=== PATIENT | female | born 1955 | race Caucasian/White ===

== ENCOUNTER 2017-03-04 21:10 | Inpatient (IN) | payer OTHER ==
[2017-03-04] MEDS ORDERED: ASPIRIN 81 MG TABLET, CHEWABLE PO ONE (21:13)
[2017-03-04] MEDS ORDERED: IPRATROPIUM/ALBUTEROL 0.5-2.5 MG/3 ML AMPUL NEB ONE (21:13)
[2017-03-04] MEDS ORDERED: METHYLPREDNISOLONE INJ 125 MG/2 ML SDV IV ONE (21:14)
[2017-03-04] MEDS ORDERED: MAGNESIUM SULFATE/D5W 1 GM/100 ML RTUPB IV ONE (21:14)
--- NOTE | 2017-03-04 22:00 | RADIOLOGY REPORT (SQ) ---
EXAM DESCRIPTION: CHEST SINGLE VIEW COMPLETED DATE/TIME: 03/04/2017 9:43 pm REASON FOR STUDY: sob COMPARISON: None. EXAM PARAMETERS: NUMBER OF VIEWS: One view. TECHNIQUE: Single frontal radiographic view of the chest acquired. RADIATION DOSE: NA LIMITATIONS: None. FINDINGS: LUNGS AND PLEURA: Patchy bilateral airspace disease, edema versus pneumonia. No pleural effusion. No pneumothorax. MEDIASTINUM AND HILAR STRUCTURES: No masses. Contour normal. HEART AND VASCULAR STRUCTURES: Mild cardiomegaly BONES: No acute findings. HARDWARE: None in the chest. OTHER: No other significant finding. IMPRESSION: Patchy diffuse bilateral airspace disease edema versus pneumonia TECHNICAL DOCUMENTATION: JOB ID: [id number] [employer]- All Rights Reserved
[2017-03-04] MEDS ORDERED: VANCOMYCIN HCL INJ 1000 MG VIAL IV ONE (22:24)
[2017-03-04] MEDS ORDERED: CEFEPIME 1 GM/D5W RTU 1 GM/50 ML RTUPB IV ONE (22:24)
[2017-03-04 22:47] LABS: ABSOLUTE LYMPHOCYTES (AUTO) 1.2 10^3/uL (0.5-4.7); ABSOLUTE MONOCYTES (AUTO) 0.2 10^3/uL (0.1-1.4); ABSOLUTE NEUT (AUTO) 4.8 10^3/uL (1.7-8.2); BASOPHILS % (AUTO) 0.5 % (0-2); EOSINOPHILS % (AUTO) 0.5 % (0-6); HEMATOCRIT 42.4 % (36.0-47.0); HEMOGLOBIN 13.6 g/dL (12.0-15.5); HGB HCT DIFFERENCE -1.6; LYMPHOCYTES % (AUTO) 19.7 % (13-45); MEAN CORPUSCULAR HEMOGLOBIN 30.1 pg (27.0-33.4); MEAN CORPUSCULAR VOLUME 94 fl (80-97); MONOCYTES % (AUTO) 3.5 % (3-13); RED BLOOD COUNT 4.52 10^6/uL (3.72-5.28); RED CELL DISTRIBUTION WIDTH 15.8 % (11.5-14.0); SEGMENTED NEUTROPHILS % (AUTO) 75.8 % (42-78); WHITE BLOOD COUNT 6.3 10^3/uL (4.0-10.5)
[2017-03-04 23:06] LABS: ALANINE AMINOTRANSFERASE 28 U/L (9-52); ALBUMIN 2.8 g/dL (3.5-5.0); ALKALINE PHOSPHATASE 69 U/L (38-126); ANION GAP 14 (5-19); ASPARTATE AMINO TRANSFERASE 23 U/L (14-36); BILIRUBIN,DIRECT 0.4 mg/dL (0.0-0.4); BILIRUBIN,TOTAL 0.5 mg/dL (0.2-1.3); BLOOD UREA NITROGEN 21 mg/dL (7-20); CALCIUM 8.6 mg/dL (8.4-10.2); CARBON DIOXIDE 22 mmol/L (22-30); CHLORIDE 106 mmol/L (98-107); CREATINE KINASE 163 U/L (30-135); CREATININE RESULT 1.39 mg/dL (0.52-1.25); GLUCOSE 106 mg/dL (75-110); POTASSIUM 4.6 mmol/L (3.6-5.0); SODIUM 142.2 mmol/L (137-145); TOTAL PROTEIN 5.7 g/dL (6.3-8.2)
[2017-03-04 23:16] LABS: TROPONIN I < 0.012 ng/mL
[2017-03-04] MEDS ORDERED: NORMAL SALINE 1000 ML 1,000 ML IV PRN (23:21)
[2017-03-05] MEDS ORDERED: DIGOXIN INJ 0.5 MG/2 ML AMPULE IV ONE (00:28)
[2017-03-05] MEDS ORDERED: SUCCINYLCHOLINE CHLORIDE INJ 200 MG/10 ML VIAL ONE (00:34)
[2017-03-05] MEDS ORDERED: ETOMIDATE INJ/PF 20 MG/10 ML SDV IV ONE (00:34)
[2017-03-05] MEDS ORDERED: ROCURONIUM BROMIDE INJ 50 MG/5 ML VIAL IV ONE (00:34)
[2017-03-05] MEDS ORDERED: NOREPINEPHRINE BITARTRATE INJ/PF 4 MG/4 ML SDV IV ONE ×2 (00:34→04:51)
[2017-03-05] MEDS ORDERED: PROPOFOL 100 ML IV ONE (00:35)
[2017-03-05 00:36] LABS: ARTERIAL BLOOD BASE EXCESS -6.9 mmol/L
[2017-03-05] MEDS ORDERED: ONDANSETRON HCL INJ/PF 4 MG/2 ML SDV IV PRN (00:42)
[2017-03-05] MEDS ORDERED: HYDROCORTISONE SOD SUCCINATE INJ/PF 100 MG/2 ML SDV IV ONE (00:49)
[2017-03-05] MEDS ORDERED: LEVALBUTEROL HCL NEB 1.25 MG/3 ML AMPUL NEB PRN (00:50)
[2017-03-05] MEDS ORDERED: PROPOFOL 100 ML IV PRN (00:51)
[2017-03-05] MEDS ORDERED: MIDAZOLAM HCL 100 ML IV PRN (00:51)
[2017-03-05] MEDS ORDERED: VECURONIUM BROMIDE INJ 10 MG VIAL IV ONE (00:56)
[2017-03-05] MEDS ORDERED: PHARMACY COMMUNICATION ORDER MC NR ×2 (01:00→02:15)
[2017-03-05 01:47] LABS: THYROID STIMULATING HORMONE 3.01 uIU/mL (0.47-4.68)
--- NOTE | 2017-03-05 01:48 | ER Document Report ---
ED General - General Chief Complaint: Breathing Difficulty Stated Complaint: RESPIRATORY DISTRESS Time Seen by Provider: 03/04/17 21:12 Mode of Arrival: Medic Information source: Patient Notes: This is a 61-year-old female with a history of pneumonia, sepsis, CHF, COPD who is brought into the emergency room by EMS for respiratory distress. Patient was placed on CPAP prior to arrival. TRAVEL OUTSIDE OF THE [place] IN LAST 30 DAYS: No - HPI Onset: Just prior to arrival Onset/Duration: Gradual Quality of pain: No pain Severity: None Pain Level: Denies Associated symptoms: Shortness of breath Exacerbated by: Denies Relieved by: Denies Similar symptoms previously: Yes Recently seen / treated by doctor: Yes - Related Data Allergies/Adverse Reactions: FERNANDO Inhibitors Allergy (Verified 03/04/17 22:14) amoxicillin [From Augmentin] Allergy (Verified 03/04/17 22:14) bumetanide [From Bumex] Allergy (Verified 03/04/17 22:14) clavulanic acid [From Augmentin] Allergy (Verified 03/04/17 22:14) Past Medical History - General Information source: Relative, Emergency Med Personnel - Social History Smoking Status: Unknown if Ever Smoked Cigarette use (# per day): No Chew tobacco use (# tins/day): No Frequency of alcohol use: None Drug Abuse: None Lives with: Spouse/Significant other Family History: None Patient has suicidal ideation: No Patient has homicidal ideation: No - Past Medical History Cardiac Medical History: Reports: Hx Congestive Heart Failure, Hx Hypertension Pulmonary Medical History: Reports: Hx COPD Renal/ Medical History: Denies: Hx Peritoneal Dialysis Review of Systems - Review of Systems Constitutional: denies: Chills, Fever EENT: No symptoms reported Cardiovascular: See HPI Respiratory: See HPI Gastrointestinal: No symptoms reported Genitourinary: No symptoms reported Female Genitourinary: No symptoms reported Musculoskeletal: No symptoms reported Skin: No symptoms reported Hematologic/Lymphatic: No symptoms reported Neurological/Psychological: No symptoms reported Physical Exam - Vital signs Vitals: Resp Pulse Ox 26 H 95 03/04/17 21:12 03/04/17 21:12 Notes: Physical exam: GENERAL: 61-year-old female, alert, answering questions, significant respiratory distress HEAD: Atraumatic, normocephalic. EYES: Pupils equal round and reactive to light, extraocular movements intact, sclera anicteric, conjunctiva are normal. ENT: TMs normal, nares patent, oropharynx clear without exudates. Moist mucous membranes. NECK: Normal range of motion, supple without obvious mass or JVD. LUNGS: Wheezing and crackles bilaterally HEART: Regular rate and rhythm without murmurs, rubs or gallops. ABDOMEN: Soft, normoactive bowel sounds. No tenderness to palpation. No guarding, no rebound. No masses appreciated. EXTREMITIES: Normal range of motion, no pitting or edema. No clubbing or cyanosis. NEUROLOGICAL: Cranial nerves II through XII grossly intact. Normal speech, moving all extremities. PSYCH: Normal mood, normal affect. SKIN: Warm, Dry, normal turgor, no rashes or lesions noted. Course - Re-evaluation Re-evalutation: 03/05/17 01:49 The patient initially did well with nebulizers, IV Solu-Medrol, IV magnesium and BiPAP. She was given cefepime and vancomycin for possible pneumonia. We are cautious with the IV fluids given the possibility of pulmonary edema and a history of CHF. Unfortunately, the patient became unresponsive suggestive of CO2 narcosis. At that point, the decision was made to intubate the patient. A right central line was placed for hypotension. - Vital Signs Vital signs: Temp Pulse Resp BP Pulse Ox 101.4 F H 14 86/66 L 96 03/05/17 02:16 03/05/17 02:16 03/05/17 02:16 03/05/17 03:13 - Laboratory Result Diagrams: 03/04/17 22:10 03/04/17 22:10 Laboratory results interpreted by me: 03/04/17 03/04/17 03/04/17 22:10 22:10 22:10 RDW 15.8 H Carbonic Acid ABG pH ABG pCO2 ABG pO2 ABG O2 Saturation BUN 21 H Creatinine 1.39 H Est GFR ( Amer) 46 L Est GFR (Non-Af Amer) 38 L Lactic Acid 3.9 H Creatine Kinase 163 H NT-Pro-B Natriuret Pep Total Protein 5.7 L Albumin 2.8 L Ur Leukocyte Esterase 03/04/17 03/05/17 03/05/17 22:10 00:19 01:00 RDW Carbonic Acid 1.89 H ABG pH 7.17 L* ABG pCO2 62.7 H ABG pO2 56.7 L ABG O2 Saturation 81.0 L BUN Creatinine Est GFR ( Amer) Est GFR (Non-Af Amer) Lactic Acid Creatine Kinase NT-Pro-B Natriuret Pep 96548 H Total Protein Albumin Ur Leukocyte Esterase MODERATE H 03/05/17 01:30 RDW Carbonic Acid 1.41 H ABG pH 7.27 L ABG pCO2 46.7 H ABG pO2 75.8 L ABG O2 Saturation 93.3 L BUN Creatinine Est GFR ( Amer) Est GFR (Non-Af Amer) Lactic Acid Creatine Kinase NT-Pro-B Natriuret Pep Total Protein Albumin Ur Leukocyte Esterase - Diagnostic Test Radiology reviewed: Image reviewed, Reports reviewed - Chest x-ray shows pulmonary edema or multifocal pneumonia. ET tube is in an acceptable position, central line in acceptable position. - EKG Interpretation by Me Rhythm: A.Fib Procedures - Central Line Right Internal jugular Time completed: 01:53 Consent obtained: Yes - Verbal consent was obtained from Central line pre-insertion: Sterile PPE donned, Chloraprep applied, Sterile drapes applied Central line size (Fr.): 18 Central line lumen type: Triple Anesthetic type: 1% Lidocaine mL's of anesthesia: 3 Ultrasound guided: Yes CM at insertion site: 16 Line secured with sutures: Yes Central line post-insertion: Blood return from lumens, Biopatch applied, Sutured , Sterile dressing applied, Position confirmed w/ CXR Number of attempts: 2 Complications: No Notes: 03/05/17 01:53 Glidewire used. MSBT (maximum sterile barrier technique) followed including cap , mask, sterile gloves, large sterile sheet, hand hygiene, sterile ultrasound probe sleeve, sterile saline for probe visualization, liberal ChloraPrep for cutaneous antisepsis both during procedure set up and immediately before Biopatch application, line stabilization with suture and sterile Tegaderm placement. - Intubation Orotracheal Time of Intubation: 01:52 Airway evaluation: Normal anatomy Mallampati Classification: Class 2 Medications: Etomidate, Other - Rocuronium Intubation method: Orotracheal Blade size: 3 ETT size: 7.0 ETT secured at: Teeth ETT secured at (cm): 21 Breath Sounds after Intubation: Equal End tidal CO2 confirmed: Yes Ventilator settings: SIMV Post Intubation Xray: Yes - Good position Intubation Complications: No complications Critical Care Note - Critical Care Note Total time excluding time spent on procedures (mins): 90 Discharge - Discharge Clinical Impression: Acute respiratory failure Condition: Stable Disposition: ADMITTED INPATIENT Admitting Provider: Hospitalist All es[facility] Unit Admitted: ICU
[2017-03-05 01:49] LABS: ARTERIAL BLOOD BASE EXCESS -6.1 mmol/L; ARTERIAL BLOOD O2 SATURATION 93.3 % (94-98)
--- NOTE | 2017-03-05 02:00 | RADIOLOGY REPORT (SQ) ---
EXAM DESCRIPTION: CHEST SINGLE VIEW COMPLETED DATE/TIME: 03/05/2017 1:47 am REASON FOR STUDY: intubation COMPARISON: Chest x-ray 03/04/2017. EXAM PARAMETERS: NUMBER OF VIEWS: One view TECHNIQUE: Single frontal radiograph of the chest. RADIATION DOSE: N/A LIMITATIONS: None. FINDINGS: TEMPORARY SUPPORT DEVICES:ETT in expected location. NG tube courses below the left jeannette-d iaphragm in to the stomach. Central venous access catheter tip is in expected location. LUNGS AND PLEURA: Persistent bilateral patchy airspace opacities, more confluent in the right upper l obe. No sizable pleural effusion or pneumothorax. MEDIASTINUM AND HILAR STRUCTURES: Stable. HEART AND VASCULAR STRUCTURES: The heart is mildly enlarged. There is mild central vascular congesti on. BONES: Degenerative changes in the spine. IMPRESSION: Persistent patchy bilateral airspace opacities, may represent pulmonary edema and/or pne umonia. Mild cardiomegaly and central vascular congestion. Support devices in expected locations. TECHNICAL DOCUMENTATION: JOB ID: [id number] [employer]- All Rights Reserved
[2017-03-05 02:03] LABS: APPEARANCE,URINE CLOUDY; BILIRUBIN,URINE NEGATIVE (NEGATIVE); GLUCOSE, URINE NEGATIVE (NEGATIVE); KETONES,URINE NEGATIVE (NEGATIVE); LEUKOCYTE ESTERASE,URINE MODERATE (NEGATIVE); NITRITE,URINE NEGATIVE (NEGATIVE); PROTEIN,URINE NEGATIVE (NEGATIVE); URINE SPECIFIC GRAVITY 1.016; UROBILINOGEN,URINE NEGATIVE mg/dL (<2.0)
[2017-03-05] MEDS ORDERED: DEXTROSE 5%-WATER 250 ML with NOREPINEPHRINE BITARTRATE 4 MG IV PRN ×2 (02:06)
[2017-03-05] MEDS ORDERED: NORMAL SALINE 1000 ML 1,000 ML IV PRN (02:10)
[2017-03-05] MEDS ORDERED: VANCOMYCIN HCL 0 MG in DEXTROSE 5%-WATER 250 ML IV NR (02:15)
[2017-03-05] MEDS ORDERED: NORMAL SALINE 1000 ML 1,000 ML IV ONE ×2 (02:36→02:42)
[2017-03-05] MEDS ORDERED: METOPROLOL TARTRATE PF/INJ 5 MG/5 ML SDV IV ONE (02:41)
[2017-03-05] MEDS ORDERED: LORAZEPAM INJ 2 MG/1 ML VIAL IV ONE (02:41)
[2017-03-05] MEDS ORDERED: PHENYLEPHRINE HCL INJ/PF 10 MG/1 ML SDV ONE (03:10)
[2017-03-05] MEDS ORDERED: FENTANYL CITRATE INJ/PF 100 MCG/2 ML AMPUL IV PRN (03:18)
[2017-03-05] MEDS ORDERED: ACETAMINOPHEN 650 MG SUPP.RECT PR ONE ×2 (03:19→03:22)
--- NOTE | 2017-03-05 04:17 | PDOC H&P/TRANSFER SUM ---
General Admission Date/PCP: 03/05/17 02:09 BRIANNA TORRES MD Transfer Date: 03/05/17 Accepting Facility: [facility] Accepting Physician: Dr. Jurado Resuscitation Status: Full Code Chief Complaint: Obtunded - Transfer Diagnosis (1) Septic shock Current Visit: Yes (2) Pneumonia Current Visit: Yes (3) Acute respiratory failure with hypoxia and hypercapnia Current Visit: Yes (4) Atrial fibrillation with RVR Current Visit: Yes (5) COPD exacerbation Current Visit: Yes (6) Chronic prescription opiate use Current Visit: Yes (7) ARF (acute renal failure) Current Visit: Yes (8) High anion gap metabolic acidosis Current Visit: Yes - Transfer Medications Transfer Medications: Current Medications Albuterol/Ipratropium (Duoneb 3 Ml Ampul) 3 ml NEB Q6 GARRY Stop: 04/04/17 05:59 Enoxaparin Sodium (Lovenox Inj 80 Mg/0.8 Ml Disp.Syrin) 70 mg SUBCUT Q12 GARRY Stop: 04/04/17 09:59 Fentanyl Citrate (Sublimaze Inj/Pf 100 Mcg/2 Ml Ampule) 50 mcg IV Q4HP PRN Stop: 03/12/17 03:17 Sodium Chloride (Nacl 0.9% 1000 Ml Iv Soln) 1,000 mls @ 0 mls/hr IV .CONTINUOUS PRN PRN Reason: Wide Open Stop: 04/03/17 23:20 Last Admin: 03/05/17 01:00 Dose: 1,000 ml Midazolam HCl (Versed Rtu 50 Mg/100 Ml Premix Bag) 100 mls @ 0 mls/hr IV CONTINUOUS PRN; Protocol; Titrate PRN Reason: THIS MED IS NOT "PRN" Stop: 03/12/17 00:50 Propofol (Diprivan Rtu 1000 Mg/100 Ml Inf.Bottle) 100 mls @ 0 mls/hr IV CONTINUOUS PRN; Protocol; Titrate PRN Reason: THIS MED IS NOT "PRN" Stop: 04/04/17 00:50 Cefepime HCl (Maxipime Rtu 2 Gm-D5w 50 Ml Premix Bag) 2 gm in 50 mls @ 100 mls/ hr IV Q12 GARRY Stop: 03/12/17 09:59 Vancomycin HCl / Dextrose 250 mls @ 0 mls/hr IV .PHARMACY TO DOSE NR PRN Reason: As Directed Stop: 03/12/17 02:14 Norepinephrine Bitartrate 4 mg (/ Dextrose) 250 mls @ 0 mls/hr IV CONTINUOUS PRN; Protocol; Titrate PRN Reason: THIS MED IS NOT "PRN" Stop: 04/04/17 02:05 Sodium Chloride (Nacl 0.9% 1000 Ml Iv Soln) 1,000 mls @ 150 mls/hr IV CONTINUOUS PRN PRN Reason: THIS MED IS NOT "PRN" Stop: 04/04/17 02:09 Levalbuterol HCl (Xopenex Neb 1.25 Mg/3 Ml Ampul) 1.25 mg NEB Q2HP PRN Stop: 04/04/17 00:49 Methylprednisolone Sodium Succinate (Solu-Medrol Inj/Pf 125 Mg/2 Ml Sdv) 125 mg IV Q6 GARRY Stop: 04/04/17 05:59 Ondansetron HCl (Zofran Inj/Pf 4 Mg/2 Ml Sdv) 4 mg IV Q6HP PRN PRN Reason: nausea/vomiting Stop: 04/04/17 00:41 Pantoprazole Sodium (Protonix Iv Inj 40 Mg Vial) 40 mg IV Q12 GARRY Stop: 03/08/17 09:59 Pharmacy Profile Note (Medication Communication Order) 1 each MC .NOTICE NR Stop: 04/04/17 00:59 Pharmacy Profile Note (Medication Communication Order) 1 each MC .NOTICE NR Stop: 04/04/17 02:14 Sodium Chloride (Saline Flush 2.5 Ml Monoject Prefil Syrin) 2.5 ml IV Q8 GARRY Stop: 04/04/17 05:59 - Allergies Allergies/Adverse Reactions: FERNANDO Inhibitors Allergy (Verified 03/04/17 22:14) amoxicillin [From Augmentin] Allergy (Verified 03/04/17 22:14) bumetanide [From Bumex] Allergy (Verified 03/04/17 22:14) clavulanic acid [From Augmentin] Allergy (Verified 03/04/17 22:14) - Diet/Activity Discharge Diet: Other (Comments) - npo Discharge Activity: Bedrest History of Present Illness Admission Date/PCP: 03/05/17 02:09 BRIANNA TORRES MD History of Present Illness: RADHA GALLO is a 61 year old female with past medical history of COPD, chronic atrial fibrillation, congestive heart failure, fibromyalgia, chronic opiate dependence, and chronic hypotension who presented obtunded to the emergency department. Patient was placed on CPAP prior to presentation. According to her from whom history is obtained, patient was recently discharged from rehab approximately 48 hours ago and subsequently was doing quite well without any complaints prior to taking a nap. He then found her unresponsive and activated EMS. Patient was initially treated with Solu-Medrol , breathing treatments, and antibiotics, and magnesium due to her wheezing, but quickly became unresponsive and obtunded and the decision was made to intubate her. Patient was intubated successfully and central line was placed. Patient was found to be adequately fluid resuscitated, and Levophed was initiated in the emergency department. Patient was found to be in atrial fibrillation with rapid ventricular response and she was transitioned from Levophed to Nash- Synephrine. Patient was given a bolus of digoxin 0.5 mg IV 1. Patient was also given metoprolol IV. Patient was subsequently found to be hyperthermic with a core temperature of 101.5F. Patient was started on empiric cefepime, vancomycin, and cultures were obtained of both her sputum which was barriga in appearance and also her blood. Patient continues to require an excessively high amount of oxygen approximately 80%. And due to the lack of pulmonary and needle setter care here decision was made to transfer patient [facility] again. Dr. Jurado was kind enough to accept this patient in transfer. And we appreciate their help. Past Medical History Cardiac Medical History: Reports: Congestive Heart Failure, Hypertension Pulmonary Medical History: Reports: Chronic Obstructive Pulmonary Disease (COPD) , Intubation, Pneumonia, Sleep Apnea Musculoskeltal Medical History: Reports: Fibromyalgia Past Surgical History Past Surgical History: Reports: Section, Tonsillectomy Social History Lives with: Spouse/Significant other Smoking Status: Former Smoker Frequency of Alcohol Use: None Hx Recreational Drug Use: No Hx Prescription Drug Abuse: No - Advance Directive Resuscitation Status: Full Code Surrogate healthcare decision maker:: Family History Family History: CAD, Hypertension Parental Family History Reviewed: Yes Children Family History Reviewed: Yes Sibling(s) Family History Reviewed.: Yes Review of Systems ROS unobtainable: Due to endotracheal tube Physical Exam Vital Signs: Temp Pulse Resp BP Pulse Ox 101.4 F H 14 86/66 L 96 03/05/17 02:16 03/05/17 02:16 03/05/17 02:16 03/05/17 03:13 General appearance: PRESENT: obese, severe distress Head exam: PRESENT: atraumatic, normocephalic Eye exam: PRESENT: PERRLA. ABSENT: conjunctival injection, conjunctiva pale, scleral icterus Ear exam: PRESENT: normal external ear exam, TM's normal bilaterally Mouth exam: PRESENT: moist Neck exam: PRESENT: thyromegaly, other - Endotracheal tube in place, scar on right neck. ABSENT: JVD, lymphadenopathy, tracheal deviation Respiratory exam: PRESENT: prolonged expiratory phas, rhonchi, symmetrical, unlabored, wheezes. ABSENT: accessory muscle use, rales, tachypnea Cardiovascular exam: PRESENT: irregular rhythm, +S1, +S2, systolic murmur Vascular exam: PRESENT: pallor GI/Abdominal exam: PRESENT: distended, normal bowel sounds, soft. ABSENT: firm , organolmegaly Rectal exam: PRESENT: deferred Extremities exam: PRESENT: clubbing, +1 edema Neurological exam: PRESENT: other - Intubated and sedated Psychiatric exam: PRESENT: other - Intubated and sedated Skin exam: PRESENT: other - Stage I on right medial gluteal fold Results Laboratory Results: 03/04/17 03/04/17 03/04/17 22:10 22:10 22:10 WBC 6.3 Hgb 13.6 Hct 42.4 Plt Count 375 ABG pH ABG pCO2 ABG pO2 ABG O2 Saturation FiO2 Sodium 142.2 Potassium 4.6 Chloride 106 Carbon Dioxide 22 Anion Gap 14 BUN 21 H Creatinine 1.39 H Glucose 106 Lactic Acid Calcium 8.6 Magnesium Total Bilirubin 0.5 Direct Bilirubin 0.4 AST 23 ALT 28 Alkaline Phosphatase 69 Creatine Kinase 163 H CK-MB (CK-2) 1.80 Troponin I < 0.012 NT-Pro-B Natriuret Pep Total Protein 5.7 L Albumin 2.8 L TSH Free T4 Urine pH Ur Specific [place] Ur Leukocyte Esterase Triple Phos Crystals 03/04/17 03/04/17 03/04/17 22:10 22:10 22:10 WBC Hgb Hct Plt Count ABG pH ABG pCO2 ABG pO2 ABG O2 Saturation FiO2 Sodium Potassium Chloride Carbon Dioxide Anion Gap BUN Creatinine Glucose Lactic Acid 3.9 H Calcium Magnesium 2.3 Total Bilirubin Direct Bilirubin AST ALT Alkaline Phosphatase Creatine Kinase CK-MB (CK-2) Troponin I NT-Pro-B Natriuret Pep 79009 H Total Protein Albumin TSH Free T4 Urine pH Ur Specific [place] Ur Leukocyte Esterase Triple Phos Crystals 03/04/17 03/05/17 03/05/17 22:10 00:19 01:00 WBC Hgb Hct Plt Count ABG pH 7.17 L* ABG pCO2 62.7 H ABG pO2 56.7 L ABG O2 Saturation 81.0 L FiO2 60% Sodium Potassium Chloride Carbon Dioxide Anion Gap BUN Creatinine Glucose Lactic Acid Calcium Magnesium Total Bilirubin Direct Bilirubin AST ALT Alkaline Phosphatase Creatine Kinase CK-MB (CK-2) Troponin I NT-Pro-B Natriuret Pep Total Protein Albumin TSH 3.01 Free T4 1.40 Urine pH 7.0 Ur Specific [place] 1.016 Ur Leukocyte Esterase MODERATE H Triple Phos Crystals FEW 03/05/17 03/05/17 03/05/17 01:30 03:30 03:30 WBC Hgb Hct Plt Count ABG pH 7.27 L ABG pCO2 46.7 H ABG pO2 75.8 L ABG O2 Saturation 93.3 L FiO2 90% Sodium Potassium Chloride Carbon Dioxide Anion Gap BUN Creatinine Glucose Lactic Acid 2.0 Calcium Magnesium Total Bilirubin Direct Bilirubin AST ALT Alkaline Phosphatase Creatine Kinase 203 H CK-MB (CK-2) Troponin I NT-Pro-B Natriuret Pep Total Protein Albumin TSH Free T4 Urine pH Ur Specific [place] Ur Leukocyte Esterase Triple Phos Crystals Impressions: Chest X-Ray 03/05/17 01:38 IMPRESSION: Persistent patchy bilateral airspace opacities, may represent pulmonary edema and/or pneumonia. Mild cardiomegaly and central vascular congestion. Support devices in expected locations. Status: Imported from PACS Assessment & Plan - Time Time Spent with patient: Total time spent with patient including patient education, physical examination , discussion with ER physician and transfer, and formulation of plan was 120 minutes of critical care time. Time Spent: Greater than 70 Minutes Critical Time spent with patient: 35 or more minutes Medications reviewed and adjusted accordingly: Yes Anticipated dischagre: [facility] Within: when bed available
[2017-03-05] MEDS ORDERED: IPRATROPIUM/ALBUTEROL 0.5-2.5 MG/3 ML AMPUL NEB SCH (06:00)
[2017-03-05] MEDS ORDERED: METHYLPREDNISOLONE INJ 125 MG/2 ML SDV IV SCH (06:00)
[2017-03-05] MEDS ORDERED: INFLUENZA ADLT QUAD (36MOS+) 2017-18 VAC 0.5 ML SYR IM PRN (06:52)
[2017-03-05 06:56] VITALS: BP 97/74
[2017-03-05] MEDS ORDERED: PANTOPRAZOLE SODIUM 40 MG VIAL IV SCH (10:00)
[2017-03-05] MEDS ORDERED: CEFEPIME 2 GM/D5W RTU 2 GM/50 ML RTUPB IV SCH (10:00)
[2017-03-05] MEDS ORDERED: ENOXAPARIN SODIUM INJ 80 MG/0.8 ML DISP.SYRIN SUBCUT SCH (10:00)
--- NOTE | 2017-03-05 20:58 | EKG REPORT ---
SEVERITY:- ABNORMAL ECG - ATRIAL FIBRILLATION, V-RATE 99-152 BORDERLINE R WAVE PROGRESSION, ANTERIOR LEADS : Confirmed by: Matt Flores MD 05-Mar-2017 08:32:39
[2017-03-05] MEDS ORDERED: RIVAROXABAN 10 MG TABLET PO SCH (22:00)
--- NOTE | 2017-03-06 09:59 | EKG REPORT ---
SEVERITY:- ABNORMAL ECG - SINUS RHYTHM PROBABLE INFERIOR INFARCT, AGE INDETERMINATE : Confirmed by: Matt Flores MD 06-Mar-2017 09:59:23
== END 2017-03-05 06:00 | disposition short-term general hospital (02) | DRG 871 ==
LOC: EDBD → ER 21:10 → EH 03-05 02:09 → ICU 03-05 02:51
PROVIDERS: ADMIT Family Medicine; ATTEND Family Medicine
PROC: 5A1935Z Respiratory Ventilation, Less than 24 Consecutive Hours (ICD-10-PCS; principal; 2017-03-05)
PROC: 0BH17EZ Insertion of Endotracheal Airway into Trachea, Via Natural or Artificial Opening (ICD-10-PCS; 2017-03-05)
PROC: 05HM33Z Insertion of Infusion Device into Right Internal Jugular Vein, Percutaneous Approach (ICD-10-PCS; 2017-03-05)
PROC: B543ZZA Ultrasonography of Right Jugular Veins, Guidance (ICD-10-PCS; 2017-03-05)
DX: A41.9 Sepsis, unspecified organism (principal); R65.21 Severe sepsis with septic shock; J96.01 Acute respiratory failure with hypoxia; N17.9 Acute kidney failure, unspecified; E87.2 Acidosis; F11.20 Opioid dependence, uncomplicated; J44.9 Chronic obstructive pulmonary disease, unspecified; I11.0 Hypertensive heart disease with heart failure; I50.9 Heart failure, unspecified; Z88.0 Allergy status to penicillin; Z88.6 Allergy status to analgesic agent; Z78.1 Physical restraint status; I48.2 Chronic atrial fibrillation; M79.7 Fibromyalgia; Z87.891 Personal history of nicotine dependence; Z82.49 Family history of ischemic heart disease and other diseases of the circulatory system
CPT/HCPCS: 36415; 71010; 80053; 81001; 82550; 82553; 82803; 83605; 83735; 83880; 84439; 84443; 84484; 85025; 87040; 87070; 87077; 87086; 87088; 87186; 87205; 93005; 93010; 94002; 94660; 96361; 96365; 96375; 99291; 99292; C1751; C1769; J0330; J0692; J1160; J1720; J2930; J3370; J3475; J3490; J7030; J7620

== ENCOUNTER 2017-12-28 11:14 | Day surgery (SDC) | payer OTHER ==
[~2017-12-28 11:14] MED LIST: KETOROLAC TROMETHAMINE 0.45% 4 DROP/0.4 ML DROPERETTE OD PRN
[2017-12-28] MEDS ORDERED: TOBRAMYCIN SULFATE/DEXAMETH OPH OINTMENT 3.5 GM ONE (11:32)
[2017-12-28] MEDS ORDERED: LIDOCAINE 1% INJ-PF (10 MG/ML) 30 ML SDV ONE (11:32)
[2017-12-28] MEDS ORDERED: EPINEPHRINE INJ/PF 1 MG/1 ML AMPULE ONE (11:32)
[2017-12-28] MEDS ORDERED: CHONDR SU A NA/HYALUR INTRAOC KIT (SURGICARE) ONE (11:32)
[2017-12-28] MEDS: CYCLOPENTOLATE 0.2%/PHENYLEPHRINE 1% OPH SOLN 2 ML OD PRN ×3 (11:47→12:08)
[2017-12-28] MEDS: TROPICAMIDE 1% OPH SOLN 3 ML OD PRN ×3 (11:47→12:08)
[2017-12-28] MEDS: BESIFLOXACIN HCL 0.6% OPH SUSP 5 ML BOTTLE OD PRN ×3 (11:48→12:34)
[2017-12-28] MEDS: TETRACAINE HCL 0.5% OPH SOLN 0.6 ML DROPERETTE OD PRN ×3 (11:49→12:15)
[2017-12-28] MEDS ORDERED: FENTANYL CITRATE INJ/PF 100 MCG/2 ML AMPUL ONE (12:02)
[2017-12-28] MEDS ORDERED: MIDAZOLAM 2 MG/2 ML INJ ONE ×2 (12:02→12:21)
== END 2017-12-28 13:33 | disposition home or self-care (01) ==
LOC: SC 11:14
PROVIDERS: ATTEND Ophthalmology
DX: H25.11 Age-related nuclear cataract, right eye (principal); M19.90 Unspecified osteoarthritis, unspecified site; J45.909 Unspecified asthma, uncomplicated; I25.10 Atherosclerotic heart disease of native coronary artery without angina pectoris; E78.00 Pure hypercholesterolemia, unspecified; E03.9 Hypothyroidism, unspecified; I48.91 Unspecified atrial fibrillation; M79.7 Fibromyalgia; D64.9 Anemia, unspecified; E66.9 Obesity, unspecified; M10.9 Gout, unspecified; I13.0 Hypertensive heart and chronic kidney disease with heart failure and stage 1 through stage 4 chronic kidney disease, or unspecified chronic kidney disease; I50.30 Unspecified diastolic (congestive) heart failure; E11.22 Type 2 diabetes mellitus with diabetic chronic kidney disease; N18.9 Chronic kidney disease, unspecified; Z79.899 Other long term (current) drug therapy; Z79.01 Long term (current) use of anticoagulants; Z88.1 Allergy status to other antibiotic agents; Z68.41 Body mass index [BMI] 40.0-44.9, adult
CPT/HCPCS: 66984; V2630; J2250; J3490 ×3; J0171; J3010; 142

== ENCOUNTER 2018-01-11 09:37 | Day surgery (SDC) | payer OTHER ==
[~2018-01-11 09:37] MED LIST changes: -KETOROLAC TROMETHAMINE 0.45% 4 DROP/0.4 ML DROPERETTE OD PRN; +KETOROLAC TROMETHAMINE 0.45% 4 DROP/0.4 ML DROPERETTE OS PRN
[2018-01-11] MEDS ORDERED: TOBRAMYCIN SULFATE/DEXAMETH OPH OINTMENT 3.5 GM ONE (09:41)
[2018-01-11] MEDS ORDERED: CHONDR SU A NA/HYALUR INTRAOC KIT (SURGICARE) ONE (09:41)
[2018-01-11] MEDS ORDERED: LIDOCAINE 1% INJ-PF (10 MG/ML) 30 ML SDV ONE (09:41)
[2018-01-11] MEDS ORDERED: EPINEPHRINE INJ/PF 1 MG/1 ML AMPULE ONE (09:41)
[2018-01-11] MEDS: TETRACAINE HCL 0.5% OPH SOLN 0.6 ML DROPERETTE OS PRN ×3 (10:27→10:55)
[2018-01-11] MEDS: BESIFLOXACIN HCL 0.6% OPH SUSP 5 ML BOTTLE OS PRN ×3 (10:27→11:15)
[2018-01-11] MEDS: CYCLOPENTOLATE 0.2%/PHENYLEPHRINE 1% OPH SOLN 2 ML OS PRN ×3 (10:27→10:50)
[2018-01-11] MEDS: TROPICAMIDE 1% OPH SOLN 3 ML OS PRN ×3 (10:27→10:50)
[2018-01-11] MEDS ORDERED: FENTANYL CITRATE INJ/PF 100 MCG/2 ML AMPUL ONE (10:33)
[2018-01-11] MEDS ORDERED: ONDANSETRON HCL INJ/PF 4 MG/2 ML SDV ONE (10:33)
[2018-01-11] MEDS ORDERED: MIDAZOLAM 2 MG/2 ML INJ ONE (10:33)
[2018-01-12] MEDS ORDERED: CYCLOPENTOLATE 0.2%/PHENYLEPHRINE 1% OPH SOLN 2 ML OS PRN (05:00)
[2018-01-12] MEDS ORDERED: BESIFLOXACIN HCL 0.6% OPH SUSP 5 ML BOTTLE OS PRN (05:00)
[2018-01-12] MEDS ORDERED: KETOROLAC TROMETHAMINE 0.45% 4 DROP/0.4 ML DROPERETTE OS PRN (05:00)
[2018-01-12] MEDS ORDERED: BUPIVACAINE HCL 0.75% INJ/PF (7.5 MG/1 ML) 10 ML SDV OS PRN (05:00)
[2018-01-12] MEDS ORDERED: LIDOCAINE 4% INJ/PF (40 MG/ML) 5 ML AMPUL OS PRN (05:00)
[2018-01-12] MEDS ORDERED: TROPICAMIDE 1% OPH SOLN 3 ML OS PRN (05:00)
== END 2018-01-11 12:10 | disposition home or self-care (01) ==
LOC: SC 09:37
PROVIDERS: ATTEND Ophthalmology
DX: H25.12 Age-related nuclear cataract, left eye (principal); Z98.41 Cataract extraction status, right eye; J45.909 Unspecified asthma, uncomplicated; I10 Essential (primary) hypertension; D64.9 Anemia, unspecified; M19.90 Unspecified osteoarthritis, unspecified site; I25.10 Atherosclerotic heart disease of native coronary artery without angina pectoris; M79.7 Fibromyalgia; I48.91 Unspecified atrial fibrillation; E03.9 Hypothyroidism, unspecified; Z96.651 Presence of right artificial knee joint; Z96.641 Presence of right artificial hip joint; Z79.51 Long term (current) use of inhaled steroids; Z79.01 Long term (current) use of anticoagulants; Z79.899 Other long term (current) drug therapy; Z88.8 Allergy status to other drugs, medicaments and biological substances
CPT/HCPCS: 66984; V2630; J2250; J3490 ×3; J0171; J3010; J2405; 142

== ENCOUNTER 2019-08-18 16:50 | Inpatient (IN) | payer BC, OTHER ==
[2019-08-18] MEDS ORDERED: ONDANSETRON HCL INJ/PF 4 MG/2 ML SDV IV ONE (17:32)
[2019-08-18] MEDS ORDERED: MORPHINE SULFATE 10 MG/ML INJ IV ONE (17:34)
--- NOTE | 2019-08-18 17:39 | ER Document Report ---
ED General - General Chief Complaint: Knee Pain Stated Complaint: FALL Time Seen by Provider: 08/18/19 16:56 Primary Care Provider: BRIANNA TORRES MD [Primary Care Provider] - Follow up as needed TRAVEL OUTSIDE OF THE [place] IN LAST 30 DAYS: No - HPI Notes: Chief complaint: Right lower extremity injury HPI: 64-year-old female follow-up with Dr. Torres with history of severe oxygen dependent COPD and previous knee replacement with chronic gait instability sustained a mechanical fall this afternoon while getting up to the bathroom. She try to get herself up off the floor and fell a second time. With the second impact she has experienced severe pain just above the right knee and says she has been unable to bear weight. She denies injury to her head or neck. - Related Data Allergies/Adverse Reactions: FERNANDO Inhibitors Allergy (Verified 03/04/17 22:14) amoxicillin [From Augmentin] Allergy (Verified 03/04/17 22:14) amoxicillin trihydrate [From Augmentin] Allergy (Verified 12/26/16 18:49) Hives bumetanide [From Bumex] Allergy (Verified 03/04/17 22:14) clavulanic acid [From Augmentin] Allergy (Verified 03/04/17 22:14) Potassium Clavulanate * [From Augmentin] Allergy (Verified 12/26/16 18:49) Hives Past Medical History - General Information source: Patient, Emergency Med Personnel, [facility] Records - Social History Smoking Status: Former Smoker Frequency of alcohol use: None Drug Abuse: None Family History: CAD, Hypertension, Other Patient has homicidal ideation: No - Past Medical History Cardiac Medical History: Reports: Hx Atrial Fibrillation, Hx Congestive Heart Failure - Diastolic, Hx Hypercholesterolemia, Hx Hypertension Denies: Hx Heart Attack Pulmonary Medical History: Reports: Hx Asthma, Hx COPD - On chronic steroids, Hx Pneumonia, Hx Intubation, Hx Respiratory Failure - On home oxygen, Hx Sleep Apnea Neurological Medical History: Denies: Hx Cerebrovascular Accident, Hx Seizures Endocrine Medical History: Reports: Hx Hypothyroidism Renal/ Medical History: Denies: Hx Peritoneal Dialysis GI Medical History: Denies: Hx Hepatitis, Hx Hiatal Hernia, Hx Ulcer Musculoskeletal Medical History: Reports Hx Fibromyalgia Skin Medical History: Denies Hx Psoriasis Psychiatric Medical History: Reports: Hx Depression Traumatic Medical History: Denies: Hx Traumatic Brain Injury Infectious Medical History: Denies: Hx Hepatitis Past Surgical History: Reports: Hx Section - X4, Hx Orthopedic Surgery - right knee replacement, right toe, left shoulder, Hx Tonsillectomy. Denies: Hx Mastectomy, Hx Open Heart Surgery, Hx Pacemaker - Immunizations Hx Diphtheria, Pertussis, Tetanus Vaccination: Yes Review of Systems - Review of Systems Notes: Constitutional: Negative for fever. HENT: Negative for sore throat. Eyes: Negative for visual changes. Cardiovascular: Negative for chest pain. Respiratory: Negative for shortness of breath. Gastrointestinal: Negative for abdominal pain, vomiting or diarrhea. Genitourinary: Negative for dysuria. Musculoskeletal: As per HPI Skin: Negative for rash. Neurological: Negative for headaches, weakness or numbness. 10 point ROS negative except as marked above and in HPI. Physical Exam - Vital signs Vitals: Temp Pulse Resp Pulse Ox 98.6 F 95 18 96 08/18/19 16:58 08/18/19 16:58 08/18/19 16:58 08/18/19 16:58 - Notes Notes: GENERAL: Moderately obese elderly female who appears in significant discomfort. Patient is on 2 L of nasal O2. SKIN: Good turgor no rashes. HEAD: Normocephalic atraumatic. EYES: PERRLA. EOMI. Conjunctivae and sclerae clear. EARS: CANALS AND TMS CLEAR. NOSE: CLEAR. MOUTH: Moist mucosa. Good dentition. No stridor or edema. No drooling. NECK: Supple. No masses or thyromegaly. No adenopathy. Carotids 2+ without bruits. No JVD. BACK: Symmetrical without tenderness. CHEST: Respirations unlabored. Breath sounds clear and symmetrical. HEART: Regular rhythm. No murmur gallop or rub. ABDOMEN: Soft nontender without masses, organomegaly or rebound. Bowel sounds normally active. No bruits. GENITALIA: Deferred. EXTREMITIES: Healed anterior surgical scar right knee. Patient is exquisitely tender just above the knee joint and has soft tissue swelling and visible ecchymosis. No edema. No calf tenderness. Cap refill less than 1.5 seconds. Dorsalis pedis and posterior tibial pulses 3+ and symmetrical. NEUROLOGICAL: GCS 15. Alert and oriented x3. Fluent speech. Cranial nerves II through XII intact. Sensorimotor and cerebellar normal. Normal tone. PSYCHIATRIC: Anxious affect. Course - Re-evaluation Re-evalutation: 08/18/19 17:43 X-ray of the right knee has been reviewed by me and demonstrates a comminuted fracture of the distal femur just above the prosthetic right knee joint. Patient will receive IV morphine for pain. I have paged Dr. Moy the on-call orthopedist for consultation in anticipation of admission. 08/18/19 18:01 Dr. Moy has reviewed the patient's x-rays and says that he will see her for consultation for surgical repair of the injury. Patient is to be admitted to the hospitalist service and has been accepted by Dr. Alex. - Vital Signs Vital signs: Temp Pulse Resp BP Pulse Ox 98.6 F 95 18 132/75 H 96 08/18/19 17:15 08/18/19 16:58 08/18/19 16:58 08/18/19 17:33 08/18/19 16:58 Discharge - Discharge Clinical Impression: Closed fracture of right distal femur Qualifiers: Encounter type: initial encounter Fracture morphology: unspecified fracture morphology Qualified Code(s): S72.401A - Unspecified fracture of lower end of right femur, initial encounter for closed fracture Disposition: ADMITTED INPATIENT Admitting Provider: Isai (Hospitalist) Unit Admitted: Medical Floor Referrals: BRIANNA TORRES MD [Primary Care Provider] - Follow up as needed
--- NOTE | 2019-08-18 18:04 | RADIOLOGY REPORT (SQ) ---
EXAM DESCRIPTION: KNEE RIGHT 2 VIEWS IMAGES COMPLETED DATE/TIME: 08/18/2019 4:34 pm REASON FOR STUDY: fall COMPARISON: None. NUMBER OF VIEWS: Four views. TECHNIQUE: AP and cross-table lateral radiographic images acquired of the right knee. LIMITATIONS: None. FINDINGS: MINERALIZATION: Osteopenia. BONES: There is an acute comminuted fracture of the distal femoral metaphysis. Right knee arthroplas ty with fracture line extending through the femoral component. The tibial component remains intact. No tibia or fibular fracture. JOINT: Normal knee joint alignment. Moderate joint effusion. SOFT TISSUES: No soft tissue swelling. No radio-opaque foreign body. OTHER: No other significant finding. IMPRESSION: 1. Right knee arthroplasty with acute comminuted fracture of the distal femur extending through the f emoral component of the arthroplasty. Moderate knee joint effusion. 2. There is moderate osteopenia. TECHNICAL DOCUMENTATION: JOB ID: [id number] 2010 [employer]- All Rights Reserved Reading location - IP/workstation name: [email or web address]
[2019-08-18 18:18] LABS: HEMOGLOBIN 13.9 g/dL (12.0-15.5); MEAN CORPUSCULAR HEMOGLOBIN 28.9 pg (27.0-33.4); MEAN CORPUSCULAR HGB CONC 31.5 g/dL (32.0-36.0); MEAN CORPUSCULAR VOLUME 92 fl (80-97); PLATELET COUNT 167 10^3/uL (150-450); RED CELL DISTRIBUTION WIDTH 16.9 % (11.5-14.0); WHITE BLOOD COUNT 18.1 10^3/uL (4.0-10.5)
[2019-08-18 18:21] LABS: INTERNATIONAL RATION (INR) 1.26; PARTIAL THROMBOPLASTIN TIME 30.1 SEC (23.5-35.8); PROTHROMBIN TIME 15.9 SEC (11.4-15.4)
[2019-08-18] MEDS ORDERED: ONDANSETRON 4 MG TAB.RAPDIS PO PRN (18:26)
[2019-08-18] MEDS ORDERED: IPRATROPIUM/ALBUTEROL 0.5-2.5 MG/3 ML AMPUL NEB PRN (18:26)
--- NOTE | 2019-08-18 18:26 | PDOC H&P ---
History of Present Illness Admission Date/PCP: 08/18/19 18:12 BRIANNA TORRES MD Patient complains of: Fall and left leg pain History of Present Illness: RADHA GALLO is a 64 year old female This patient presents emergency room with complaints of a fall. She denied feeling dizzy. She denied any chest pain. There is no loss of consciousness nausea vomiting. There is no headache. She said she has followed before although denies that it is frequent. She says she has some gait instability. She does have a history of chronic atrial fibrillation. In fact she said she had cardioversion attempted just about 5 days ago advised and but patient is currently back in atrial fibrillation. She is on Eliquis. She said her medication was just changed from Xarelto to Eliquis I believe 5 days ago. She is unsure of the reason why. She says she is scheduled to go back and see the anglesmith for possible ablation Past Medical History Cardiac Medical History: Reports: Atrial Fibrillation, Congestive Heart Failure - Diastolic, Hyperlipidema, Hypertension Denies: Myocardial Infarction Pulmonary Medical History: Reports: Asthma, Chronic Obstructive Pulmonary Disease (COPD) - On chronic steroids, Intubation, Pneumonia, Respiratory Failure - On home oxygen, Sleep Apnea Neurological Medical History: Denies: Seizures Endocrine Medical History: Reports: Hypothyroidism GI Medical History: Denies: Hepatitis, Hiatal Hernia Musculoskeltal Medical History: Reports: Fibromyalgia Skin Medical History: Denies: Psoriasis Psychiatric Medical History: Reports: Depression Traumatic Medical History: Denies: Traumatic Brain Injury Hematology: Reports: Anemia - HX OF ON IRON SUPP Denies: Sickle Cell Disease Past Surgical History Past Surgical History: Reports: Section - X4, Orthopedic Surgery - right knee replacement, right toe, left shoulder, Tonsillectomy Denies: Amputation, Mastectomy, Pacemaker Social History Information Source: Patient Smoking Status: Former Smoker Frequency of Alcohol Use: None Hx Recreational Drug Use: No Drugs: None Hx Prescription Drug Abuse: No - Advance Directive Resuscitation Status: Full Code Family History Family History: None, CAD, Hypertension, Other Parental Family History Reviewed: No Children Family History Reviewed: Yes Sibling(s) Family History Reviewed.: Yes Medication/Allergy Home Medications: Furosemide [Lasix 40 mg Tablet] 40 mg PO BID 05/02/17 Prednisone 2.5 mg PO QPM #30 tablet 05/09/17 Allopurinol [Zyloprim 300 mg Tablet] 300 mg PO DAILY 12/27/17 Cyclobenzaprine HCl [Flexeril 10 mg Tablet] 10 mg PO TIDP PRN 12/27/17 Dofetilide [Tikosyn 500 Mcg Capsule] 250 mcg PO BID 12/27/17 Magnesium Oxide [Mag-Ox 400 mg Tablet] 250 mg PO DAILY 12/27/17 Montelukast Sodium [Singulair 10 mg Tablet] 10 mg PO QHS 12/27/17 Potassium Chloride [Klor-Con 10 Meq Capsule ER] 20 meq PO DAILY 12/27/17 Prednisone 5 mg PO QAM 12/27/17 Pregabalin [Lyrica] 300 mg PO BID 12/27/17 Ropinirole HCl [Requip] 4 mg PO DAILY 12/27/17 Spironolactone 25 mg PO BID 12/27/17 Apixaban [Eliquis 5 mg Tablet] 1 tab PO BID 08/18/19 Diclofenac Epolamine 1 patch TD BID 08/18/19 Fluticasone/Salmeterol [Advair 250-50 Diskus 14 Dose/Diskus] 1 puff IH BID 08/18/19 Lidocaine [Lidoderm 5% (700 mg) Transdermal Patch] 1 patch TP DAILY 08/18/19 Metoprolol Succinate [Toprol Xl] 200 mg PO DAILY 08/18/19 Multivitamin [Multiple Vitamins] 1 tab PO DAILY 08/18/19 Oxycodone HCl/Acetaminophen [Percocet 10-325 mg Tablet] 1 tab PO Q6H PRN 08/18/19 Oxycodone Myristate [Xtampza ER] 13.5 mg PO BID 08/18/19 Topiramate [Qudexy Xr] 50 mg PO DAILY 08/18/19 Ubidecarenone [Coq10] 1 tab PO DAILY 08/18/19 Allergies/Adverse Reactions: FERNANDO Inhibitors Allergy (Verified 03/04/17 22:14) amoxicillin [From Augmentin] Allergy (Verified 03/04/17 22:14) amoxicillin trihydrate [From Augmentin] Allergy (Verified 12/26/16 18:49) Hives bumetanide [From Bumex] Allergy (Verified 03/04/17 22:14) clavulanic acid [From Augmentin] Allergy (Verified 03/04/17 22:14) Potassium Clavulanate * [From Augmentin] Allergy (Verified 12/26/16 18:49) Hives Review of Systems All systems: reviewed and no additional remarkable complaints except as stated Constitutional: ABSENT: headache(s), weakness Eyes: ABSENT: visual disturbances Nose, Mouth, and Throat: ABSENT: sore throat Cardiovascular: ABSENT: edema Gastrointestinal: ABSENT: abdominal pain, hematemesis, hematochezia Genitourinary: ABSENT: dysuria Physical Exam Vital Signs: Temp Pulse Resp BP Pulse Ox 98.6 F 95 18 132/75 H 96 08/18/19 17:15 08/18/19 16:58 08/18/19 16:58 08/18/19 17:33 08/18/19 16:58 Intake & Output 08/17/19 08/18/19 08/19/19 06:59 06:59 06:59 Weight 79.9 kg General appearance: PRESENT: no acute distress, obese Head exam: PRESENT: atraumatic, normocephalic Eye exam: PRESENT: conjunctiva pink, EOMI, PERRLA. ABSENT: scleral icterus Ear exam: PRESENT: normal external ear exam Mouth exam: PRESENT: moist, tongue midline Neck exam: ABSENT: carotid bruit, JVD, lymphadenopathy, thyromegaly Respiratory exam: PRESENT: clear to auscultation martin, unlabored Cardiovascular exam: PRESENT: irregular rhythm, +S1, +S2 Pulses: PRESENT: normal dorsalis pedis pul Vascular exam: PRESENT: normal capillary refill GI/Abdominal exam: PRESENT: normal bowel sounds, soft. ABSENT: distended, guarding, mass, organolmegaly, rebound, tenderness Rectal exam: PRESENT: deferred Extremities exam: PRESENT: other - R thigh pain Musculoskeletal exam: PRESENT: deformity Neurological exam: PRESENT: alert, awake, oriented to person, oriented to place, oriented to time, oriented to situation, CN II-XII grossly intact. ABSENT: motor sensory deficit Psychiatric exam: PRESENT: appropriate affect, normal mood. ABSENT: homicidal ideation, suicidal ideation Skin exam: PRESENT: dry, intact, warm. ABSENT: cyanosis, rash Results Laboratory Results: Results are currently pending Impressions: Knee X-Ray 08/18/19 16:55 IMPRESSION: 1. Right knee arthroplasty with acute comminuted fracture of the distal femur extending through the femoral component of the arthroplasty. Moderate knee joint effusion. 2. There is moderate osteopenia. Assessment and Plan - Diagnosis (1) Atrial fibrillation, chronic Is this a current diagnosis for this admission?: Yes Plan: This is well controlled. Patient's medications have not been verified in the computer and I do not have her laboratory information also (2) Closed fracture of right distal femur Qualifiers: Encounter type: initial encounter Fracture morphology: unspecified fracture morphology Qualified Code(s): S72.401A - Unspecified fracture of lower end of right femur, initial encounter for closed fracture Is this a current diagnosis for this admission?: Yes Plan: Patient is to be evaluated by surgery for surgical plans as indicated by orthopedics. As she is anticoagulant this should be held. She does have chronic atrial fibrillation and there is no need for full strength anticoagulation at this time (3) COPD (chronic obstructive pulmonary disease) Is this a current diagnosis for this admission?: Yes Plan: This appears to be stable. (4) ARCHANA (obstructive sleep apnea) Is this a current diagnosis for this admission?: Yes - Plan Summary Summary: Anticoagulation will be held - Time Time Spent with patient: 25-34 minutes Anticipated discharge: Home
[2019-08-18 18:35] LABS: ALBUMIN 4.1 g/dL (3.5-5.0); ALKALINE PHOSPHATASE 100 U/L (38-126); ASPARTATE AMINO TRANSFERASE 27 U/L (14-36); BILIRUBIN,TOTAL 0.6 mg/dL (0.2-1.3); BLOOD UREA NITROGEN 28 mg/dL (7-20); CALCIUM 9.2 mg/dL (8.4-10.2); CHLORIDE 92 mmol/L (98-107); GLUCOSE 165 mg/dL (75-110); POTASSIUM 3.7 mmol/L (3.6-5.0); TOTAL PROTEIN 6.6 g/dL (6.3-8.2)
[2019-08-18 18:38] LABS: ABSOLUTE LYMPHOCYTES# (MANUAL) 0.9 10^3/uL (0.5-4.7); ABSOLUTE MONOCYTES # (MANUAL) 1.1 10^3/uL (0.1-1.4); BASOPHILS % (MANUAL) 0 % (0-2); EOSINOPHILS % (MANUAL) 0 % (0-6); LYMPHOCYTES % (MANUAL) 5 % (13-45); MONOCYTES % (MANUAL) 6 % (3-13); SEGMENTED NEUTROPHILS % (MAN) 89 % (42-78); TOTAL CELLS COUNTED 100
[2019-08-18 18:39] LABS: ANISOCYTOSIS 1+; PLATELET COMMENT ADEQUATE; PLATELET LARGE PRESENT
[2019-08-18 18:43] LABS: ANION GAP 6 (5-19); CARBON DIOXIDE 39 mmol/L (22-30)
--- NOTE | 2019-08-18 19:39 | RADIOLOGY REPORT (SQ) ---
EXAM DESCRIPTION: CHEST SINGLE VIEW IMAGES COMPLETED DATE/TIME: 08/18/2019 5:20 pm REASON FOR STUDY: preop COMPARISON: CT chest 08/09/2017. Chest radiograph 05/18/2017 EXAM PARAMETERS: NUMBER OF VIEWS: One view. TECHNIQUE: Single frontal radiographic view of the chest acquired. RADIATION DOSE: NA LIMITATIONS: None. FINDINGS: LUNGS AND PLEURA: There is ill-defined patchy area consolidation in the retrocardiac left lower lobe region. Probable small left effusion. Lungs are hyperinflated. Biapical pleural scarrin g is stable. No focal consolidation in the right lung. No pneumothorax. MEDIASTINUM AND HILAR STRUCTURES: No masses. Contour normal. HEART AND VASCULAR STRUCTURES: Heart normal in size. Normal vasculature. BONES: No acute findings. HARDWARE: None in the chest. OTHER: No other significant finding. IMPRESSION: Patchy retrocardiac opacity in the left lower lobe suspicious for infectious/ inflammato ry process. CT of the chest may provide additional information. TECHNICAL DOCUMENTATION: JOB ID: [id number] 2010 [employer]- All Rights Reserved Reading location - IP/workstation name: [id number]
[2019-08-18 20:35] LABS: APPEARANCE,URINE CLEAR; BILIRUBIN,URINE NEGATIVE (NEGATIVE); COLOR,URINE YELLOW; GLUCOSE, URINE NEGATIVE (NEGATIVE); KETONES,URINE NEGATIVE (NEGATIVE); PROTEIN,URINE NEGATIVE (NEGATIVE); URINE SPECIFIC GRAVITY 1.011; UROBILINOGEN,URINE NEGATIVE mg/dL (<2.0)
[2019-08-18] MEDS: OXYCODONE-ACETAMINOPHEN 5-325 MG TABLET PO PRN (22:03)
[2019-08-19] MEDS: OXYCODONE-ACETAMINOPHEN 5-325 MG TABLET PO PRN (04:13)
[2019-08-19] MEDS ORDERED: (PENDING PHARMACY ID) (Prednisone [Prednisone] 5 MG) PO SCH (08:00)
[2019-08-19] MEDS: ACETAMINOPHEN 325 MG TABLET PO PRN ×2 (08:50→22:27)
[2019-08-19] MEDS: NORMAL SALINE 1000 ML 1,000 ML IV PRN (08:51)
[2019-08-19] MEDS ORDERED: MIDAZOLAM 2 MG/2 ML INJ ONE (09:52)
[2019-08-19] MEDS ORDERED: HYDROMORPHONE HCL INJ/PF 2 MG/ML AMPULE ONE (09:52)
[2019-08-19] MEDS ORDERED: PROPOFOL INJ 200 MG/20 ML VIAL IV ONE (09:52)
[2019-08-19] MEDS ORDERED: FENTANYL CITRATE INJ/PF 100 MCG/2 ML AMPUL ONE (09:52)
[2019-08-19] MEDS ORDERED: PHENYLEPHRINE HCL INJ/PF 10 MG/1 ML SDV ONE (10:00)
[2019-08-19] MEDS ORDERED: DOFETILIDE 500 MCG CAPSULE PO SCH (10:00)
[2019-08-19] MEDS ORDERED: LIDOCAINE 2% INJ-PF (20 MG/ML) 2 ML AMPUL ONE (10:00)
[2019-08-19] MEDS ORDERED: ROCURONIUM BROMIDE INJ 50 MG/5 ML VIAL IV ONE (10:00)
[2019-08-19] MEDS ORDERED: ONDANSETRON HCL INJ/PF 4 MG/2 ML SDV ONE (10:00)
--- NOTE | 2019-08-19 10:06 | PDOC CONSULTATION ---
Consultation Consult Date: 08/19/19 Attending physician:: LUIS MIGUEL CABRERA Provider Consulted: EREN HOOD Consult reason:: Right distal femur periprosthetic fracture History of Present Illness Admission Date/PCP: 08/18/19 18:12 BRIANNA TORRES MD Patient complains of: Right distal femur fracture History of Present Illness: RADAH GALLO is a 64 year old female with a history of atrial fibrillation, COPD, and gait instability. She sustained a fall yesterday at home resulting in a displaced right distal femur periprosthetic fracture. Upon presentation she denied loss of consciousness, chest pain, or lightheadedness. Past Medical History Cardiac Medical History: Reports: Atrial Fibrillation, Congestive Heart Failure - Diastolic, Hyperlipidema, Hypertension Denies: Myocardial Infarction Pulmonary Medical History: Reports: Asthma, Chronic Obstructive Pulmonary Disease (COPD) - On chronic steroids, Intubation, Pneumonia, Respiratory Failure - On home oxygen, Sleep Apnea Neurological Medical History: Denies: Seizures Endocrine Medical History: Reports: Hypothyroidism GI Medical History: Denies: Hepatitis, Hiatal Hernia Musculoskeltal Medical History: Reports: Fibromyalgia Skin Medical History: Denies: Psoriasis Psychiatric Medical History: Reports: Depression Traumatic Medical History: Denies: Traumatic Brain Injury Hematology: Reports: Anemia - HX OF ON IRON SUPP Denies: Sickle Cell Disease Past Surgical History Past Surgical History: Reports: Section - X4, Orthopedic Surgery - right knee replacement, right toe, left shoulder, Tonsillectomy Denies: Amputation, Mastectomy, Pacemaker Social History Smoking Status: Never Smoker Electronic Cigarette use?: No Frequency of Alcohol Use: None Hx Recreational Drug Use: No Drugs: None Hx Prescription Drug Abuse: No - Advance Directive Resuscitation Status: Full Code Family History Family History: None, CAD, Hypertension, Other Parental Family History Reviewed: Yes Children Family History Reviewed: Yes Sibling(s) Family History Reviewed.: Yes Medication/Allergy Home Medications: Furosemide [Lasix 40 mg Tablet] 40 mg PO BID 05/02/17 Prednisone 2.5 mg PO QPM #30 tablet 05/09/17 Allopurinol [Zyloprim 300 mg Tablet] 300 mg PO DAILY 12/27/17 Cyclobenzaprine HCl [Flexeril 10 mg Tablet] 10 mg PO TIDP PRN 12/27/17 Dofetilide [Tikosyn 500 Mcg Capsule] 250 mcg PO BID 12/27/17 Magnesium Oxide [Mag-Ox 400 mg Tablet] 250 mg PO DAILY 12/27/17 Montelukast Sodium [Singulair 10 mg Tablet] 10 mg PO QHS 12/27/17 Potassium Chloride [Klor-Con 10 Meq Capsule ER] 20 meq PO DAILY 12/27/17 Prednisone 5 mg PO QAM 12/27/17 Pregabalin [Lyrica] 300 mg PO BID 12/27/17 Ropinirole HCl [Requip] 4 mg PO DAILY 12/27/17 Spironolactone 25 mg PO BID 12/27/17 Apixaban [Eliquis 5 mg Tablet] 1 tab PO BID 08/18/19 Diclofenac Epolamine 1 patch TD BID 08/18/19 Fluticasone/Salmeterol [Advair 250-50 Diskus 14 Dose/Diskus] 1 puff IH BID 08/18/19 Lidocaine [Lidoderm 5% (700 mg) Transdermal Patch] 1 patch TP DAILY 08/18/19 Metoprolol Succinate [Toprol Xl] 200 mg PO DAILY 08/18/19 Multivitamin [Multiple Vitamins] 1 tab PO DAILY 08/18/19 Oxycodone HCl/Acetaminophen [Percocet 10-325 mg Tablet] 1 tab PO Q6H PRN 08/18/19 Oxycodone Myristate [Xtampza ER] 13.5 mg PO BID 08/18/19 Topiramate [Qudexy Xr] 50 mg PO DAILY 08/18/19 Ubidecarenone [Coq10] 1 tab PO DAILY 08/18/19 Allergies/Adverse Reactions: FERNANDO Inhibitors Allergy (Verified 03/04/17 22:14) amoxicillin [From Augmentin] Allergy (Verified 03/04/17 22:14) amoxicillin trihydrate [From Augmentin] Allergy (Verified 12/26/16 18:49) Hives bumetanide [From Bumex] Allergy (Verified 03/04/17 22:14) clavulanic acid [From Augmentin] Allergy (Verified 03/04/17 22:14) Potassium Clavulanate * [From Augmentin] Allergy (Verified 12/26/16 18:49) Hives Review of Systems All systems: reviewed and no additional remarkable complaints except as stated - As per HPI Physical Exam Vital Signs: Temp Pulse Resp BP Pulse Ox 98.2 F 92 18 107/69 98 08/19/19 08:00 08/19/19 09:29 08/19/19 09:29 08/19/19 08:00 08/19/19 09:29 Intake & Output 08/18/19 08/19/19 08/20/19 06:59 06:59 06:59 Intake Total 200 Output Total 400 Balance -200 Weight 78.6 kg General appearance: PRESENT: no acute distress, morbidly obese Head exam: PRESENT: atraumatic, normocephalic Neck exam: PRESENT: full ROM Respiratory exam: PRESENT: accessory muscle use, decreased breath sounds, prolonged expiratory phas Cardiovascular exam: PRESENT: irregular rhythm Pulses: PRESENT: +2 pedal pulses bilateral GI/Abdominal exam: PRESENT: normal bowel sounds, soft. ABSENT: distended, guarding, mass, organolmegaly, rebound, tenderness Rectal exam: PRESENT: deferred Musculoskeletal exam: PRESENT: other - Displaced right distal periprosthetic fracture. Patient is able to DF and PF the foot. Sensation is intact. 2+ DP and PT pulses. Psychiatric exam: PRESENT: depressed Results Laboratory Results: 08/18/19 18:00 08/18/19 18:00 08/18/19 08/18/19 08/18/19 18:00 18:00 19:05 WBC 18.1 H RBC 4.80 Hgb 13.9 Hct 44.0 MCV 92 MCH 28.9 MCHC 31.5 L RDW 16.9 H Plt Count 167 Seg Neutrophils % Not Reportable Sodium 136.8 L Potassium 3.7 Chloride 92 L Carbon Dioxide 39 H Anion Gap 6 BUN 28 H Creatinine 1.14 Est GFR ( Amer) 58 L Glucose 165 H Calcium 9.2 Total Bilirubin 0.6 AST 27 Alkaline Phosphatase 100 Total Protein 6.6 Albumin 4.1 Urine Color YELLOW Urine Appearance CLEAR Urine pH 7.0 Ur Specific [place] 1.011 Urine Protein NEGATIVE Urine Glucose (UA) NEGATIVE Urine Ketones NEGATIVE Urine Blood NEGATIVE Urine RBC (Auto) 1 Impressions: Knee X-Ray 08/18/19 16:55 IMPRESSION: 1. Right knee arthroplasty with acute comminuted fracture of the distal femur extending through the femoral component of the arthroplasty. Moderate knee joint effusion. 2. There is moderate osteopenia. Chest X-Ray 08/18/19 17:42 IMPRESSION: Patchy retrocardiac opacity in the left lower lobe suspicious for infectious/ inflammatory process. CT of the chest may provide additional information. Assessment & Plan - Diagnosis (1) Atrial fibrillation, chronic Is this a current diagnosis for this admission?: Yes (2) Closed fracture of right distal femur Qualifiers: Encounter type: initial encounter Fracture morphology: unspecified fracture morphology Qualified Code(s): S72.401A - Unspecified fracture of lower end of right femur, initial encounter for closed fracture Is this a current diagnosis for this admission?: Yes - Time Time Spent: 30 to 50 Minutes Anticipated discharge: SNF - Plan Summary Plan Summary: The patient has sustained a displaced periprosthetic fracture of the right distal femur. Radiographically implants appear stable. I have recommended open reduction with internal fixation. Risks, benefits, and alternatives were discussed with the patient. Risks include the risk of with anesthesia, the risk of infection, the risk of injury to nerves and vessels, the risk of nonunion and malunion, and the possible need for additional surgical procedures. The possible need for blood transfusion was also discussed. An opportunity for questions was provided. All questions were answered to the patient's satisfaction. The patient expressed understanding and wishes to proceed with surgery.
[2019-08-19 10:09] LABS: ABSOLUTE BASOPHILS # (AUTO) 0.1 10^3/uL (0.0-0.2); ABSOLUTE EOSINOPHILS # (AUTO) 0.1 10^3/uL (0.0-0.6); ABSOLUTE LYMPHOCYTES (AUTO) 1.9 10^3/uL (0.5-4.7); ABSOLUTE MONOCYTES (AUTO) 1.1 10^3/uL (0.1-1.4); ABSOLUTE NEUT (AUTO) 8.5 10^3/uL (1.7-8.2); BASOPHILS % (AUTO) 0.6 % (0-2); EOSINOPHILS % (AUTO) 1.2 % (0-6); HEMOGLOBIN 12.2 g/dL (12.0-15.5); LYMPHOCYTES % (AUTO) 16.1 % (13-45); MEAN CORPUSCULAR HEMOGLOBIN 29.2 pg (27.0-33.4); MEAN CORPUSCULAR HGB CONC 32.2 g/dL (32.0-36.0); MEAN CORPUSCULAR VOLUME 91 fl (80-97); MONOCYTES % (AUTO) 9.1 % (3-13); PLATELET COUNT 148 10^3/uL (150-450); RED BLOOD COUNT 4.19 10^6/uL (3.72-5.28); RED CELL DISTRIBUTION WIDTH 16.7 % (11.5-14.0); TOTAL CELLS COUNTED % (AUTO) 100 %; WHITE BLOOD COUNT 11.6 10^3/uL (4.0-10.5)
[2019-08-19] MEDS ORDERED: BUPIVACAINE HCL 0.5%-EPI 1:200000 INJ/PF 30 ML VIAL ONE (10:18)
[2019-08-19 10:26] LABS: ANION GAP 5 (5-19); BLOOD UREA NITROGEN 21 mg/dL (7-20); CALCIUM 8.3 mg/dL (8.4-10.2); CARBON DIOXIDE 36 mmol/L (22-30); CHLORIDE 96 mmol/L (98-107); GLUCOSE 88 mg/dL (75-110); POTASSIUM 3.3 mmol/L (3.6-5.0)
[2019-08-19] MEDS ORDERED: VANCOMYCIN HCL INJ 500 MG VIAL ONE (10:30)
[2019-08-19] MEDS: FLUTICASONE/VILANTEROL 200-25 MCG/DOSE IH SCH (10:46)
[2019-08-19] MEDS: PREGABALIN 100 MG CAPSULE PO SCH ×2 (10:47→18:16)
[2019-08-19] MEDS: DOCUSATE SODIUM 100 MG CAPSULE PO SCH (10:47)
--- NOTE | 2019-08-19 10:51 | EKG REPORT ---
SEVERITY:- ABNORMAL ECG - ATRIAL FIBRILLATION INFERIOR INFARCT, AGE INDETERMINATE NONSPECIFIC T ABNORMALITIES, ANT-LAT LEADS : Confirmed by: Anjel Baeza 19-Aug-2019 10:50:39
[2019-08-19] MEDS ORDERED: FENTANYL CITRATE INJ/PF 100 MCG/2 ML AMPUL IV PRN ×3 (11:49)
[2019-08-19] MEDS ORDERED: DIPHENHYDRAMINE HCL 50 MG/ML VIAL IV PRN (11:49)
[2019-08-19] MEDS ORDERED: MEPERIDINE HCL/PF INJ 25 MG/1 ML DISP.SYRIN IV PRN (11:49)
[2019-08-19] MEDS ORDERED: ONDANSETRON HCL INJ/PF 4 MG/2 ML SDV IV PRN (11:49)
[2019-08-19] MEDS ORDERED: PROMETHAZINE HCL INJ 25 MG/1 ML VIAL IV PRN ×2 (11:49)
--- NOTE | 2019-08-19 13:39 | Operative Report ---
Operative Report DATE OF SURGERY: 08/19/19 PREOPERATIVE DIAGNOSIS: Right distal femur displaced intercondylar periprosthet ic fracture POSTOPERATIVE DIAGNOSIS: Same OPERATION: Open reduction with internal fixation right distal femur intercondylar periprosthetic fracture. Implants: [place] right distal femur plate 8 hole SURGEON: EREN HOOD ANESTHESIA: GA COMPLICATIONS: None ESTIMATED BLOOD LOSS: 100 cc INTRAOPERATIVE FINDINGS: Same PROCEDURE: Indications for procedure: The patient is a 64-year-old woman with atrial fibrillation, COPD, and deconditioning disorder. She sustained a fall at home yesterday resulting in a displaced intercondylar periprosthetic fracture surrounding a right total knee arthroplasty. Description of procedure following the induction of a general anesthetic and the administration of 1 g of vancomycin, the patient was positioned supine on the operating room table. All bony prominences were padded. The right lower extremity was sterilely prepped with ChloraPrep and draped in standard fashion. A tourniquet was not used due to the length of the leg. A standard lateral uti lity incision was employed. Sharp incision was performed through skin with Bovie electrocautery through the subcutaneous tissue and adipose tissue. The iliotibial band was split and retracted. The vastus lateralis was taken off of bone with electrocautery taking care to coagulate perforating vessels. Fracture was visualized. There was significant comminution in the metaphyseal region. Reduction was performed and multiple clamps were placed across the small fracture fragments. 2 lag screws were placed from lateral to medial maintaining reduction of the fragments. These leg screws pulled out of the distal fragment but were still able to maintain the relative alignment of the fracture fragments. [place] distal femoral plate was positioned on the lateral aspect of the femur. Its position was secured distally with a Mikie wire. The plates was then clamped to the femur with several small clamps dialing in the reduction. A cancellus screw was placed distally compressing the plate to the femur. Multiple locking screws were then placed into the distal fragment. This was followed by 4 bicortically placed locking screws in the shaft. Lastly a cancellus screw was placed into the distal fragment from proximal to distal. The knee was taken through a full range of motion. Alignment and motion were normal. The fracture construct was stable. Image intensification was brought in which demonstrated anatomic reduction of the fracture and correct placement of implants. Copious irrigation was then performed. The iliotibial band was closed [id number] with 0 Vicryl suture. The subcutaneous tissue was closed with 2-0 Vicryl suture. Skin was reapproximated with 3-0 nylon suture. 25 cc of 0.5% Marcaine with epinephrine was injected for postoperative analgesia. A bulky sterile dressing and knee immobilizer were then applied. The patient tolerated the procedure well without complications was brought recovery in stable condition.
--- NOTE | 2019-08-19 14:38 | PDOC PROGRESS REPORT ---
Subjective Progress Note for:: 08/19/19 Reason For Visit: RIGHT FEMORAL FRACTURE, ATRIAL FIBRILLATION, CHRON Physical Exam Vital Signs: Temp Pulse Resp BP Pulse Ox 98.1 F 126 H 12 110/78 97 08/19/19 13:35 08/19/19 14:20 08/19/19 14:20 08/19/19 14:20 08/19/19 14:20 Intake & Output 08/18/19 08/19/19 08/20/19 06:59 06:59 06:59 Intake Total 200 1750 Output Total 400 1450 Balance -200 300 Weight 78.6 kg General appearance: PRESENT: no acute distress, well-developed, well-nourished Head exam: PRESENT: atraumatic, normocephalic Eye exam: PRESENT: conjunctiva pink, EOMI, PERRLA. ABSENT: scleral icterus Ear exam: PRESENT: normal external ear exam Mouth exam: PRESENT: moist, tongue midline Neck exam: ABSENT: carotid bruit, JVD, lymphadenopathy, thyromegaly Respiratory exam: PRESENT: clear to auscultation martin. ABSENT: rales, rhonchi, wheezes Cardiovascular exam: PRESENT: RRR. ABSENT: diastolic murmur, rubs, systolic murmur Pulses: PRESENT: normal dorsalis pedis pul Vascular exam: PRESENT: normal capillary refill GI/Abdominal exam: PRESENT: normal bowel sounds, soft. ABSENT: distended, guarding, mass, organolmegaly, rebound, tenderness Rectal exam: PRESENT: deferred Extremities exam: PRESENT: other - R LE Immobilizer. ABSENT: calf tenderness, pedal edema Neurological exam: PRESENT: alert, awake, oriented to person, oriented to place, oriented to time, oriented to situation, CN II-XII grossly intact. ABSENT: motor sensory deficit Psychiatric exam: PRESENT: appropriate affect, normal mood. ABSENT: homicidal ideation, suicidal ideation Skin exam: PRESENT: dry, intact, warm. ABSENT: cyanosis, rash Results Laboratory Results: 08/19/19 09:23 08/19/19 09:23 08/18/19 08/18/19 08/18/19 18:00 18:00 19:05 WBC 18.1 H RBC 4.80 Hgb 13.9 Hct 44.0 MCV 92 MCH 28.9 MCHC 31.5 L RDW 16.9 H Plt Count 167 Seg Neutrophils % Not Reportable Sodium 136.8 L Potassium 3.7 Chloride 92 L Carbon Dioxide 39 H Anion Gap 6 BUN 28 H Creatinine 1.14 Est GFR ( Amer) 58 L Glucose 165 H Calcium 9.2 Total Bilirubin 0.6 AST 27 Alkaline Phosphatase 100 Total Protein 6.6 Albumin 4.1 Urine Color YELLOW Urine Appearance CLEAR Urine pH 7.0 Ur Specific [place] 1.011 Urine Protein NEGATIVE Urine Glucose (UA) NEGATIVE Urine Ketones NEGATIVE Urine Blood NEGATIVE Urine RBC (Auto) 1 08/19/19 08/19/19 09:23 09:23 WBC 11.6 H RBC 4.19 Hgb 12.2 Hct 38.0 MCV 91 MCH 29.2 MCHC 32.2 RDW 16.7 H Plt Count 148 L Seg Neutrophils % 73.0 Sodium 137.4 Potassium 3.3 L Chloride 96 L Carbon Dioxide 36 H Anion Gap 5 BUN 21 H Creatinine 0.76 Est GFR ( Amer) > 60 Glucose 88 Calcium 8.3 L Total Bilirubin AST Alkaline Phosphatase Total Protein Albumin Urine Color Urine Appearance Urine pH Ur Specific [place] Urine Protein Urine Glucose (UA) Urine Ketones Urine Blood Urine RBC (Auto) Impressions: Knee X-Ray 08/18/19 16:55 IMPRESSION: 1. Right knee arthroplasty with acute comminuted fracture of the distal femur extending through the femoral component of the arthroplasty. Moderate knee joint effusion. 2. There is moderate osteopenia. Chest X-Ray 08/18/19 17:42 IMPRESSION: Patchy retrocardiac opacity in the left lower lobe suspicious for infectious/ inflammatory process. CT of the chest may provide additional information. Assessment and Plan - Diagnosis (1) Atrial fibrillation, chronic Is this a current diagnosis for this admission?: Yes Plan: Restart anticoagulant once okay by orthopedics. Patient says she just had reversion within the last 1 week and she states she is scheduled to have an ablation. She remained in atrial fibrillation (2) Closed fracture of right distal femur Qualifiers: Encounter type: initial encounter Fracture morphology: unspecified fracture morphology Qualified Code(s): S72.401A - Unspecified fracture of lower end of right femur, initial encounter for closed fracture Is this a current diagnosis for this admission?: Yes Plan: Patient is status post open reduction with internal fixation of the right distal femur periprosthetic fracture. (3) COPD (chronic obstructive pulmonary disease) Is this a current diagnosis for this admission?: Yes Plan: stable. (4) ARCHANA (obstructive sleep apnea) Is this a current diagnosis for this admission?: Yes (5) SIRS (systemic inflammatory response syndrome) Is this a current diagnosis for this admission?: Yes Plan: Likely related to acute event. Her white count is already down from 18,000. We will continue to monitor - Plan Summary Summary: Anticoagulation will be held
[2019-08-19] MEDS ORDERED: POTASSIUM CHLORIDE 10 MEQ TABLET.ER PO ONE ×3 (15:00→23:00)
--- NOTE | 2019-08-19 16:26 | RADIOLOGY REPORT (SQ) ---
EXAM DESCRIPTION: FEMUR RIGHT; NO CHG FLUORO IMAGES COMPLETED DATE/TIME: 08/19/2019 1:00 pm REASON FOR STUDY: DISTAL FEMUR ORIF COMPARISON: Right knee two views 08/18/2019 FLUOROSCOPY TIME: 0.1 minutes 5 digital C-arm images saved to PACS. TECHNIQUE: Intra-operative images acquired during surgical procedure to evaluate progress. NUMBER OF IMAGES: 5 digital C-arm images LIMITATIONS: None. FINDINGS: Post ORIF distal right femur fracture with lateral distal femoral fixation plate and multi ple screws. Pre-existing total knee replacement in good alignment. Please see the operative report for further details IMPRESSION: IMAGE(S) OBTAINED DURING PROCEDURE. COMMENT: Quality ID 145: Final reports for procedures using fluoroscopy that document radiation exp osure indices, or exposure time and number of fluorographic images (if radiation exposure indices are not available) Please consult full operative report of the attending physician for description of the procedure. TECHNICAL DOCUMENTATION: JOB ID: [id number] 2010 [employer]- All Rights Reserved Reading location - IP/workstation name: [email or web address]
--- NOTE | 2019-08-19 16:26 | RADIOLOGY REPORT (SQ) ---
EXAM DESCRIPTION: FEMUR RIGHT; NO CHG FLUORO IMAGES COMPLETED DATE/TIME: 08/19/2019 1:00 pm REASON FOR STUDY: DISTAL FEMUR ORIF COMPARISON: Right knee two views 08/18/2019 FLUOROSCOPY TIME: 0.1 minutes 5 digital C-arm images saved to PACS. TECHNIQUE: Intra-operative images acquired during surgical procedure to evaluate progress. NUMBER OF IMAGES: 5 digital C-arm images LIMITATIONS: None. FINDINGS: Post ORIF distal right femur fracture with lateral distal femoral fixation plate and multi ple screws. Pre-existing total knee replacement in good alignment. Please see the operative report for further details IMPRESSION: IMAGE(S) OBTAINED DURING PROCEDURE. COMMENT: Quality ID 145: Final reports for procedures using fluoroscopy that document radiation exp osure indices, or exposure time and number of fluorographic images (if radiation exposure indices are not available) Please consult full operative report of the attending physician for description of the procedure. TECHNICAL DOCUMENTATION: JOB ID: [id number] 2010 [employer]- All Rights Reserved Reading location - IP/workstation name: [email or web address]
--- NOTE | 2019-08-19 16:32 | Progress Note ---
Provider Note Provider Note: I was called by the nursing staff to see patient after she was found to be hypotensive with her systolic blood pressure in the 60s. She had return to the room from the PACU at about 3:15 PM and I was called within 1 hour of this happening. Repeat blood pressure continue to show a systolic in the 70s to 80s. Monitor blood pressure was also checked. Patient was actually awake and alert although she did indicate that she felt somewhat woozy during this episodes. She was given isotonic saline and after about 500mL she did perk up and systolic blood pressure increased to about 102. Patient unfortunately appears to have a congestion with a cough at this time but will continue to give her some fluids. 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 This lady is in atrial fibrillation with a heart rate of about 110. She did have cardioversion done just within the last week. She apparently lost about 400 mL of blood during the surgery according to reports. Labs are currently pending including CBC, BMP, troponin and BNP. She denies any chest pain. As she is symptomatically improved and blood pressures improved we will continue to watch now follow-up on her lab work and chest x-ray for further intervention. Nursing staff informed the surgeon about patient's condition Temp Pulse Resp BP Pulse Ox 98.6 F 108 H 16 100/56 L 100 08/19/19 14:35 08/19/19 15:23 08/19/19 15:23 08/19/19 14:35 08/19/19 15:23 Intake & Output 08/18/19 08/19/19 08/20/19 06:59 06:59 06:59 Intake Total 200 1900 Output Total 400 1450 Balance -200 450 Weight 78.6 kg Labs- Last Values WBC 11.9 10^3/uL (4.0-10.5) H 08/19/19 16:45 RBC 3.06 10^6/uL (3.72-5.28) L 08/19/19 16:45 Hgb 8.9 g/dL (12.0-15.5) L D 08/19/19 16:45 Hct 28.2 % (36.0-47.0) L 08/19/19 16:45 MCV 92 fl (80-97) 08/19/19 16:45 MCH 29.1 pg (27.0-33.4) 08/19/19 16:45 MCHC 31.6 g/dL (32.0-36.0) L 08/19/19 16:45 RDW 16.7 % (11.5-14.0) H 08/19/19 16:45 Plt Count 142 10^3/uL (150-450) L 08/19/19 16:45 Lymph % (Auto) 17.0 % (13-45) 08/19/19 16:45 [place] % (Auto) 8.6 % (3-13) 08/19/19 16:45 Eos % (Auto) 1.1 % (0-6) 08/19/19 16:45 Baso % (Auto) 0.6 % (0-2) 08/19/19 16:45 Absolute Neuts (auto) 8.6 10^3/uL (1.7-8.2) H 08/19/19 16:45 Absolute Lymphs (auto) 2.0 10^3/uL (0.5-4.7) 08/19/19 16:45 Absolute Monos (auto) 1.0 10^3/uL (0.1-1.4) 08/19/19 16:45 Absolute Eos (auto) 0.1 10^3/uL (0.0-0.6) 08/19/19 16:45 Absolute Basos (auto) 0.1 10^3/uL (0.0-0.2) 08/19/19 16:45 Total Counted 100 08/18/19 18:00 Seg Neutrophils % 72.7 % (42-78) 08/19/19 16:45 Seg Neuts % (Manual) 89 % (42-78) H 08/18/19 18:00 Lymphocytes % (Manual) 5 % (13-45) L 08/18/19 18:00 Monocytes % (Manual) 6 % (3-13) 08/18/19 18:00 Eosinophils % (Manual) 0 % (0-6) 08/18/19 18:00 Basophils % (Manual) 0 % (0-2) 08/18/19 18:00 Abs Neuts (Manual) 16.1 10^3/uL (1.7-8.2) H 08/18/19 18:00 Abs Lymphs (Manual) 0.9 10^3/uL (0.5-4.7) 08/18/19 18:00 Abs Monocytes (Manual) 1.1 10^3/uL (0.1-1.4) 08/18/19 18:00 Absolute Eos (Manual) 0.0 10^3/uL (0.0-0.6) 08/18/19 18:00 Abs Basophils (Manual) 0.0 10^3/uL (0.0-0.2) 08/18/19 18:00 Large Platelets PRESENT 08/18/19 18:00 Platelet Comment ADEQUATE 08/18/19 18:00 Anisocytosis 1+ 08/18/19 18:00 PT 15.9 SEC (11.4-15.4) H 08/18/19 18:00 INR 1.26 08/18/19 18:00 APTT 30.1 SEC (23.5-35.8) 08/18/19 18:00 Sodium 135.0 mmol/L (137-145) L 08/19/19 16:45 Potassium 3.3 mmol/L (3.6-5.0) L 08/19/19 16:45 Chloride 102 mmol/L (98-107) 08/19/19 16:45 Carbon Dioxide 29 mmol/L (22-30) 08/19/19 16:45 Anion Gap 4 (5-19) L 08/19/19 16:45 BUN 23 mg/dL (7-20) H 08/19/19 16:45 Creatinine 1.13 mg/dL (0.52-1.25) 08/19/19 16:45 Est GFR ( Amer) 58 (>60) L 08/19/19 16:45 Est GFR (MDRD) Non-Af 48 (>60) L 08/19/19 16:45 Glucose 216 mg/dL (75-110) H 08/19/19 16:45 Calcium 7.2 mg/dL (8.4-10.2) L 08/19/19 16:45 Total Bilirubin 0.6 mg/dL (0.2-1.3) 08/18/19 18:00 Direct Bilirubin 0.0 mg/dL (0.0-0.4) 08/18/19 18:00 Neonat Total Bilirubin Not Reportable 08/18/19 18:00 Neonat Direct Bilirubin Not Reportable 08/18/19 18:00 Neonat Indirect Bili Not Reportable 08/18/19 18:00 AST 27 U/L (14-36) 08/18/19 18:00 ALT 23 U/L (<35) 08/18/19 18:00 Alkaline Phosphatase 100 U/L (38-126) 08/18/19 18:00 Troponin I 0.047 ng/mL 08/19/19 16:45 NT-Pro-B Natriuret Pep 1390 pg/mL (<125) H 08/19/19 16:45 Total Protein 6.6 g/dL (6.3-8.2) 08/18/19 18:00 Albumin 4.1 g/dL (3.5-5.0) 08/18/19 18:00 Urine Color YELLOW 08/18/19 19:05 Urine Appearance CLEAR 08/18/19 19:05 Urine pH 7.0 (5.0-9.0) 08/18/19 19:05 Ur Specific [place] 1.011 08/18/19 19:05 Urine Protein NEGATIVE mg/dL (NEGATIVE) 08/18/19 19:05 Urine Glucose (UA) NEGATIVE mg/dL (NEGATIVE) 08/18/19 19:05 Urine Ketones NEGATIVE mg/dL (NEGATIVE) 08/18/19 19:05 Urine Blood NEGATIVE (NEGATIVE) 08/18/19 19:05 Urine Nitrite (Reflex) NEGATIVE (NEGATIVE) 08/18/19 19:05 Urine Bilirubin NEGATIVE (NEGATIVE) 08/18/19 19:05 Urine Urobilinogen NEGATIVE mg/dL (<2.0) 08/18/19 19:05 Leukocyte Esterase Rfl NEGATIVE (NEGATIVE) 08/18/19 19:05 Urine RBC (Auto) 1 /HPF 08/18/19 19:05 Urine WBC (Reflex) 1 /HPF 08/18/19 19:05 Squamous Epi Cells Auto 1 /HPF 08/18/19 19:05 Urine Ascorbic Acid NEGATIVE (NEGATIVE) 08/18/19 19:05 SARS-CoV-2 (PCR) NEGATIVE (NEGATIVE) 08/18/19 22:00 Chest x-ray shows increasing small to moderate left pleural effusion with compre ssive atelectasis or consolidation at the left lung base. Patient ordered for vancomycin postop. She does continue to be hypokalemic and her kidney function is relatively flat. White count is mostly unchanged at 11.9 however her hemoglobin did drop to 8.9 and this is consistent with a history that she did lose blood Intra-Op. Hemoglobin was 12.2 this morning preop We will continue to monitor patient.
[2019-08-19 17:00] LABS: ABSOLUTE BASOPHILS # (AUTO) 0.1 10^3/uL (0.0-0.2); ABSOLUTE EOSINOPHILS # (AUTO) 0.1 10^3/uL (0.0-0.6); ABSOLUTE NEUT (AUTO) 8.6 10^3/uL (1.7-8.2); BASOPHILS % (AUTO) 0.6 % (0-2); EOSINOPHILS % (AUTO) 1.1 % (0-6); HEMATOCRIT 28.2 % (36.0-47.0); MEAN CORPUSCULAR HEMOGLOBIN 29.1 pg (27.0-33.4); MEAN CORPUSCULAR HGB CONC 31.6 g/dL (32.0-36.0); MEAN CORPUSCULAR VOLUME 92 fl (80-97); MONOCYTES % (AUTO) 8.6 % (3-13); PLATELET COUNT 142 10^3/uL (150-450); RED BLOOD COUNT 3.06 10^6/uL (3.72-5.28); RED CELL DISTRIBUTION WIDTH 16.7 % (11.5-14.0); SEGMENTED NEUTROPHILS % (AUTO) 72.7 % (42-78); TOTAL CELLS COUNTED % (AUTO) 100 %; WHITE BLOOD COUNT 11.9 10^3/uL (4.0-10.5)
[2019-08-19 17:01] LABS: HEMOGLOBIN 8.9 g/dL (12.0-15.5)
[2019-08-19 17:16] LABS: BLOOD UREA NITROGEN 23 mg/dL (7-20); CHLORIDE 102 mmol/L (98-107); GLUCOSE 216 mg/dL (75-110); POTASSIUM 3.3 mmol/L (3.6-5.0)
[2019-08-19 17:22] LABS: CARBON DIOXIDE 29 mmol/L (22-30)
--- NOTE | 2019-08-19 17:31 | RADIOLOGY REPORT (SQ) ---
EXAM DESCRIPTION: CHEST SINGLE VIEW IMAGES COMPLETED DATE/TIME: 08/19/2019 3:33 pm REASON FOR STUDY: post op congestion. COMPARISON: 08/18/2019. CT chest, 06/09/2017 EXAM PARAMETERS: NUMBER OF VIEWS: One view TECHNIQUE: Single frontal radiographic view of the chest acquired. RADIATION DOSE: NA LIMITATIONS: None. FINDINGS: LUNGS AND PLEURA: Increasing small to moderate left pleural effusion with compressive atel ectasis/ consolidation at the left lung base. Right lung remains clear. No right effusion. No pneu mothorax. MEDIASTINUM AND HILAR STRUCTURES: No masses. Contour normal. HEART AND VASCULAR STRUCTURES: Moderate cardiomegaly. No pulmonary vascular congestion. BONES: Osteoarthritis and postsurgical changes at the left shoulder, unchanged. HARDWARE: None in the chest. OTHER: No other significant finding. IMPRESSION: Increasing small to moderate left pleural effusion with compressive atelectasis/ consoli dation at the left lung base. TECHNICAL DOCUMENTATION: JOB ID: [id number] 2010 [employer]- All Rights Reserved Reading location - IP/workstation name: [email or web address]
[2019-08-19 17:41] LABS: ANION GAP 4 (5-19); CALCIUM 7.2 mg/dL (8.4-10.2)
[2019-08-19 17:43] LABS: TROPONIN I 0.047 ng/mL
[2019-08-19] MEDS: PREDNISONE 5 MG TABLET PO SCH (18:14)
[2019-08-19] MEDS: DOFETILIDE 125 MCG CAPSULE PO SCH (18:15)
[2019-08-19] MEDS ORDERED: NORMAL SALINE 250 ML IV PRN ×2 (19:44→19:45)
[2019-08-19] MEDS ORDERED: RINGERS SOLUTION,LACTATED 1,000 ML IV PRN (19:44)
[2019-08-19] MEDS ORDERED: ACETAMINOPHEN 325 MG TABLET PO PRN (19:45)
[2019-08-19] MEDS ORDERED: DIPHENHYDRAMINE HCL 25 MG CAPSULE PO PRN (19:45)
--- NOTE | 2019-08-19 19:53 | Progress Note ---
Provider Note Provider Note: Critical care note: 08/19/2019 Critical care start time: 1910 Critical care issue: Hypotension I responded to a rapid response for this patient due to hypotension with a systolic blood pressure of 58. Patient was noted to be very pale but awake, alert and appropriate. Examination revealed her skin to have very poor turgor and severe dryness of her oral mucosa. Conjunctiva were pale as were her oral labia. Chest showed a few scattered rhonchi but was otherwise clear. Heart showed a irregularly irregular rate and rhythm with a mild tachycardia 100-120. Operative site was essentially clean and dry with no obvious hematoma of the proximal femur or pelvic soft tissues. After discussion with patient concerning her hypertension and probable nature/etiology due to vascular volume depletion and operative blood loss we determined that she would be willing to accept a transfusion of 2 units of packed red blood cells and a bolus of normal saline followed by increased IV fluids utilizing lactated Ringer's. The patient was observed on an ongoing basis while she received her fluid bolus and her blood pr essure gradually improved to a systolic pressure of 100 with her heart rate decreased to 100-110. A basic metabolic profile, CBC without differential, type crossmatch and give 2 units packed red blood cells and routine transfusion care orders were placed. Critical care end time: 1948 Total critical care time: 38 minutes
[2019-08-19 19:56] LABS: ABSOLUTE BASOPHILS # (AUTO) 0.1 10^3/uL (0.0-0.2); ABSOLUTE EOSINOPHILS # (AUTO) 0.2 10^3/uL (0.0-0.6); ABSOLUTE LYMPHOCYTES (AUTO) 1.4 10^3/uL (0.5-4.7); ABSOLUTE MONOCYTES (AUTO) 1.2 10^3/uL (0.1-1.4); ABSOLUTE NEUT (AUTO) 11.1 10^3/uL (1.7-8.2); BASOPHILS % (AUTO) 0.7 % (0-2); EOSINOPHILS % (AUTO) 1.5 % (0-6); HEMATOCRIT 27.2 % (36.0-47.0); HEMOGLOBIN 8.5 g/dL (12.0-15.5); LYMPHOCYTES % (AUTO) 9.8 % (13-45); MEAN CORPUSCULAR HEMOGLOBIN 29.1 pg (27.0-33.4); MEAN CORPUSCULAR HGB CONC 31.3 g/dL (32.0-36.0); MEAN CORPUSCULAR VOLUME 93 fl (80-97); MONOCYTES % (AUTO) 8.7 % (3-13); PLATELET COUNT 132 10^3/uL (150-450); RED BLOOD COUNT 2.92 10^6/uL (3.72-5.28); RED CELL DISTRIBUTION WIDTH 16.9 % (11.5-14.0); SEGMENTED NEUTROPHILS % (AUTO) 79.3 % (42-78); TOTAL CELLS COUNTED % (AUTO) 100 %
[2019-08-19 20:17] LABS: BLOOD UREA NITROGEN 23 mg/dL (7-20); GLUCOSE 152 mg/dL (75-110); POTASSIUM 3.3 mmol/L (3.6-5.0)
[2019-08-19 20:23] LABS: CARBON DIOXIDE 26 mmol/L (22-30); CHLORIDE 103 mmol/L (98-107)
[2019-08-19 20:30] LABS: ANION GAP 5 (5-19)
[2019-08-19] MEDS ORDERED: NORMAL SALINE 1000 ML 1,000 ML IV ONE (20:30)
[2019-08-19 20:33] LABS: CALCIUM 6.8 mg/dL (8.4-10.2)
--- NOTE | 2019-08-19 22:19 | EKG REPORT ---
SEVERITY:- ABNORMAL ECG - ATRIAL FIBRILLATION, V-RATE 84-139 BORDERLINE INFERIOR Q WAVES NONSPECIFIC REPOL ABNORMALITY, DIFFUSE LEADS : Confirmed by: Anjel Baeza 19-Aug-2019 22:17:59
[2019-08-19] MEDS: VANCOMYCIN HCL 1,000 MG in DEXTROSE 5%-WATER 250 ML IV SCH (22:28)
[2019-08-20] MEDS: OXYCODONE-ACETAMINOPHEN 5-325 MG TABLET PO PRN ×3 (01:12→14:25)
[2019-08-20] MEDS: KETOROLAC TROMETHAMINE INJ/PF 30 MG/1 ML SDV IV PRN ×3 (05:21→20:37)
[2019-08-20 07:42] LABS: ABSOLUTE BASOPHILS # (AUTO) 0.1 10^3/uL (0.0-0.2); ABSOLUTE EOSINOPHILS # (AUTO) 0.3 10^3/uL (0.0-0.6); ABSOLUTE LYMPHOCYTES (AUTO) 1.3 10^3/uL (0.5-4.7); ABSOLUTE MONOCYTES (AUTO) 1.2 10^3/uL (0.1-1.4); BASOPHILS % (AUTO) 0.4 % (0-2); EOSINOPHILS % (AUTO) 2.1 % (0-6); HEMATOCRIT 28.8 % (36.0-47.0); HEMOGLOBIN 9.7 g/dL (12.0-15.5); LYMPHOCYTES % (AUTO) 8.6 % (13-45); MEAN CORPUSCULAR HEMOGLOBIN 29.7 pg (27.0-33.4); MEAN CORPUSCULAR HGB CONC 33.6 g/dL (32.0-36.0); MONOCYTES % (AUTO) 8.2 % (3-13); PLATELET COUNT 104 10^3/uL (150-450); RED BLOOD COUNT 3.27 10^6/uL (3.72-5.28); RED CELL DISTRIBUTION WIDTH 16.5 % (11.5-14.0); SEGMENTED NEUTROPHILS % (AUTO) 80.7 % (42-78); TOTAL CELLS COUNTED % (AUTO) 100 %; WHITE BLOOD COUNT 14.9 10^3/uL (4.0-10.5)
[2019-08-20 07:45] LABS: BLOOD UREA NITROGEN 15 mg/dL (7-20); CALCIUM 7.2 mg/dL (8.4-10.2); GLUCOSE 114 mg/dL (75-110); POTASSIUM 3.6 mmol/L (3.6-5.0)
[2019-08-20 07:50] LABS: CARBON DIOXIDE 29 mmol/L (22-30); CHLORIDE 104 mmol/L (98-107); MEAN CORPUSCULAR VOLUME 88 fl (80-97)
[2019-08-20 07:51] LABS: ANION GAP 1 (5-19)
[2019-08-20] MEDS ORDERED: METOPROLOL SUCCINATE 50 MG TAB.SR.24H PO ONE (08:45)
[2019-08-20] MEDS: DOFETILIDE 125 MCG CAPSULE PO SCH ×2 (09:45→17:36)
[2019-08-20] MEDS: FLUTICASONE/VILANTEROL 200-25 MCG/DOSE IH SCH (09:45)
[2019-08-20] MEDS: PREGABALIN 100 MG CAPSULE PO SCH ×2 (09:46→17:35)
[2019-08-20] MEDS: DOCUSATE SODIUM 100 MG CAPSULE PO SCH (09:46)
[2019-08-20] MEDS: VANCOMYCIN HCL 1,000 MG in DEXTROSE 5%-WATER 250 ML IV SCH ×2 (09:47→21:03)
--- NOTE | 2019-08-20 11:07 | CDI QUERY ---
CDI Query CDI Review: Dear Provider: To better reflect your patients severity of illness, morbidity, and resource utilization Please specify and document in the Progress Notes and Discharge Summary if you are monitoring / treating / evaluating any of the following conditions: Query Clinical indicators Acute blood loss anemia Post-op blood loss anemia Unable to determine Other PREOPERATIVE DIAGNOSIS: Right distal femur displaced intercondylar periprosthetic fracture OPERATION: Open reduction with internal fixation right distal femur intercondylar periprosthetic fracture. Implants: [place] right distal femur plate 8 hole Per Provider Note: I was called by the nursing staff to see patient after she was found to be hypotensive with her systolic blood pressure in the 60s. She had return to the room from the PACU at about 3:15 PM and I was called within 1 hour of this happening She apparently lost about 400 mL of blood during the surgery according to reports. H/H on admission 13.9 /44 post-op 8.5/27.2 Transfused 2 units PRBC The terms probable, suspected, likely, possible or still to be ruled out may be used if you are unable to determine the exact nature of a condition. Thank you for your consideration, Clinical Documentation Physician Advisors EAN Espinosa RN, BSN RN [email or web address] Office [phone] Office [phone]
--- NOTE | 2019-08-20 12:34 | PDOC PROGRESS REPORT ---
Subjective Progress Note for:: 08/20/19 Subjective:: Patient feels better today. Events last night noted. She apparently became more hypotensive and repeat H&H revealed hemoglobin to still be low at 8.5. Have been 12.2 early on in the day. The consensus is that she was hypotensive from hemorrhagic shock from acute blood loss anemia intraoperatively. There is no clear evidence of any overt bleeding. Reason For Visit: RIGHT FEMORAL FRACTURE, ATRIAL FIBRILLATION, CHRON Physical Exam Vital Signs: Temp Pulse Resp BP Pulse Ox 98.4 F 114 H 16 112/69 100 08/20/19 08:00 08/20/19 08:36 08/20/19 08:36 08/20/19 08:00 08/20/19 08:36 Intake & Output 08/19/19 08/20/19 08/21/19 06:59 06:59 06:59 Intake Total 200 4160 500 Output Total 400 1450 Balance -200 2710 500 Weight 78.6 kg 78 kg General appearance: PRESENT: no acute distress Head exam: PRESENT: atraumatic, normocephalic Eye exam: PRESENT: conjunctiva pink, EOMI. ABSENT: scleral icterus Ear exam: PRESENT: normal external ear exam Mouth exam: PRESENT: moist, tongue midline Neck exam: ABSENT: carotid bruit, JVD, lymphadenopathy, thyromegaly Respiratory exam: PRESENT: clear to auscultation martin. ABSENT: rales, rhonchi, wheezes Cardiovascular exam: PRESENT: irregular rhythm, +S1, +S2. ABSENT: diastolic murmur, rubs, systolic murmur GI/Abdominal exam: PRESENT: normal bowel sounds, soft. ABSENT: distended, guarding, mass, organolmegaly, rebound, tenderness Rectal exam: PRESENT: deferred Extremities exam: PRESENT: other - Right lower extremity with knee immobilizer. No Gross hematoma noted. ABSENT: calf tenderness, clubbing, pedal edema Neurological exam: PRESENT: alert, awake, oriented to person, oriented to place, oriented to time, oriented to situation, CN II-XII grossly intact. ABSENT: motor sensory deficit Psychiatric exam: PRESENT: appropriate affect, normal mood. ABSENT: homicidal ideation, suicidal ideation Skin exam: PRESENT: dry, intact, warm. ABSENT: cyanosis, rash Results Laboratory Results: 08/20/19 07:15 08/20/19 07:15 08/19/19 08/19/19 08/19/19 16:45 16:45 19:42 WBC 11.9 H 14.0 H RBC 3.06 L 2.92 L Hgb 8.9 L D 8.5 L Hct 28.2 L 27.2 L MCV 92 93 MCH 29.1 29.1 MCHC 31.6 L 31.3 L RDW 16.7 H 16.9 H Plt Count 142 L 132 L Seg Neutrophils % 72.7 79.3 H Sodium 135.0 L Potassium 3.3 L Chloride 102 Carbon Dioxide 29 Anion Gap 4 L BUN 23 H Creatinine 1.13 Est GFR ( Amer) 58 L Glucose 216 H Calcium 7.2 L Blood Type Antibody Screen 08/19/19 08/19/19 08/20/19 19:42 19:42 07:15 WBC 14.9 H RBC 3.27 L Hgb 9.7 L Hct 28.8 L MCV 88 D MCH 29.7 MCHC 33.6 RDW 16.5 H Plt Count 104 L Seg Neutrophils % 80.7 H Sodium 133.8 L Potassium 3.3 L Chloride 103 Carbon Dioxide 26 Anion Gap 5 BUN 23 H Creatinine 1.09 Est GFR ( Amer) > 60 Glucose 152 H Calcium 6.8 L* Blood Type A POSITIVE Antibody Screen NEGATIVE 08/20/19 07:15 WBC RBC Hgb Hct MCV MCH MCHC RDW Plt Count Seg Neutrophils % Sodium 134.3 L Potassium 3.6 Chloride 104 Carbon Dioxide 29 Anion Gap 1 L BUN 15 Creatinine 0.78 Est GFR ( Amer) > 60 Glucose 114 H Calcium 7.2 L Blood Type Antibody Screen 08/19/19 08/20/19 08/20/19 16:45 00:49 07:15 Troponin I 0.047 0.039 0.040 NT-Pro-B Natriuret Pep 1390 H Impressions: Knee X-Ray 08/18/19 16:55 IMPRESSION: 1. Right knee arthroplasty with acute comminuted fracture of the distal femur extending through the femoral component of the arthroplasty. Moderate knee joint effusion. 2. There is moderate osteopenia. Chest X-Ray 08/19/19 00:00 IMPRESSION: Increasing small to moderate left pleural effusion with compressive atelectasis/ consolidation at the left lung base. Femur X-Ray 08/19/19 00:00 IMPRESSION: IMAGE(S) OBTAINED DURING PROCEDURE. Fluoroscopy 08/19/19 00:00 IMPRESSION: IMAGE(S) OBTAINED DURING PROCEDURE. Assessment and Plan - Diagnosis (1) Atrial fibrillation, chronic Is this a current diagnosis for this admission?: Yes Plan: She is currently in atrial fibrillation poorly controlled. Likely exacerbated with her acute blood loss anemia. Will restart on metoprolol at a reduced dose as she is still borderline hypotensive (2) Closed fracture of right distal femur Qualifiers: Encounter type: initial encounter Fracture morphology: unspecified fracture morphology Qualified Code(s): S72.401A - Unspecified fracture of lower end of right femur, initial encounter for closed fracture Is this a current diagnosis for this admission?: Yes Plan: She is status post ORIF postop day 1. For the management as per orthopedics (3) COPD (chronic obstructive pulmonary disease) Is this a current diagnosis for this admission?: Yes (4) ARCHANA (obstructive sleep apnea) Is this a current diagnosis for this admission?: Yes (5) Anemia Qualifiers: Anemia type: other cause Other causes of anemia: acute posthemorrhagic Qualified Code(s): D62 - Acute posthemorrhagic anemia Is this a current diagnosis for this admission?: Yes Plan: Patient likely sustained hemodynamic compromise from her acute blood loss anemia. She was transfused 2 units of packed red blood cells. Hemoglobin is still around 9. She is much improved clinically today although still somewhat tentative. We will continue to monitor her closely. We will follow-up on H&H and transfuse as needed - Plan Summary Summary: Continue to hold anticoagulation We will give a dose of Lasix as she did receive quite a bit of fluid both intraoperatively and postop when she was hypotensive. According to her ejection fraction is about 45% Chest x-ray shows increasing small to moderate left pleural effusion with compressive atelectasis or consolidation at the left lung base. Will place on empiric antibiotic and suggest this should be followed and escalated or discontinued if not indicated. Her slightly elevated troponin which has been flat, with a downward trend is likely secondary to her acute posthemorrhagic anemia as well as atrial fibrillation and a stress of surgery. Patient already has a parachute folder at [facility] and she should follow-up once she is discharged - Time Time Spent with patient: 25-34 minutes Medications reviewed and adjusted accordingly: Yes Anticipated discharge: Home
[2019-08-20] MEDS ORDERED: FUROSEMIDE INJ/PF 20 MG/2 ML SDV IV ONE (13:00)
[2019-08-20] MEDS: CEFTRIAXONE 1 GM/D5W RTU 1 GM/50 ML RTUPB IV SCH (13:01)
[2019-08-20] MEDS: PREDNISONE 5 MG TABLET PO SCH (17:35)
--- NOTE | 2019-08-20 17:47 | PDOC PROGRESS REPORT ---
Subjective Progress Note for:: 08/20/19 Subjective:: Patient has moderate pain in the right leg following ORIF distal femur fracture. Patient received 2U PRBC last evening for symptomatic acute blood loss anemia. She is clinically improved today. Reason For Visit: RIGHT FEMORAL FRACTURE, ATRIAL FIBRILLATION, CHRON Physical Exam Vital Signs: Temp Pulse Resp BP Pulse Ox 98.5 F 73 16 81/52 L 100 08/20/19 12:35 08/20/19 12:35 08/20/19 12:35 08/20/19 12:35 08/20/19 12:35 Intake & Output 08/19/19 08/20/19 08/21/19 06:59 06:59 06:59 Intake Total 200 4160 550 Output Total 400 1450 Balance -200 2710 550 Weight 78.6 kg 78 kg General appearance: PRESENT: no acute distress Head exam: PRESENT: atraumatic, normocephalic Pulses: PRESENT: +2 pedal pulses bilateral Musculoskeletal exam: PRESENT: other - The surgical dressing is C/D/I. There is no evidence of persistent bleeding. Sensation and motor function are normal. Results Laboratory Results: 08/20/19 07:15 08/20/19 07:15 08/19/19 08/19/19 08/19/19 16:45 19:42 19:42 WBC 14.0 H RBC 2.92 L Hgb 8.5 L Hct 27.2 L MCV 93 MCH 29.1 MCHC 31.3 L RDW 16.9 H Plt Count 132 L Seg Neutrophils % 79.3 H Sodium 135.0 L 133.8 L Potassium 3.3 L 3.3 L Chloride 102 103 Carbon Dioxide 29 26 Anion Gap 4 L 5 BUN 23 H 23 H Creatinine 1.13 1.09 Est GFR ( Amer) 58 L > 60 Glucose 216 H 152 H Calcium 7.2 L 6.8 L* Blood Type Antibody Screen 08/19/19 08/20/19 08/20/19 19:42 07:15 07:15 WBC 14.9 H RBC 3.27 L Hgb 9.7 L Hct 28.8 L MCV 88 D MCH 29.7 MCHC 33.6 RDW 16.5 H Plt Count 104 L Seg Neutrophils % 80.7 H Sodium 134.3 L Potassium 3.6 Chloride 104 Carbon Dioxide 29 Anion Gap 1 L BUN 15 Creatinine 0.78 Est GFR ( Amer) > 60 Glucose 114 H Calcium 7.2 L Blood Type A POSITIVE Antibody Screen NEGATIVE 08/19/19 08/20/19 08/20/19 16:45 00:49 07:15 Troponin I 0.047 0.039 0.040 NT-Pro-B Natriuret Pep 1390 H Impressions: Knee X-Ray 08/18/19 16:55 IMPRESSION: 1. Right knee arthroplasty with acute comminuted fracture of the distal femur extending through the femoral component of the arthroplasty. Moderate knee joint effusion. 2. There is moderate osteopenia. Chest X-Ray 08/19/19 00:00 IMPRESSION: Increasing small to moderate left pleural effusion with compressive atelectasis/ consolidation at the left lung base. Femur X-Ray 08/19/19 00:00 IMPRESSION: IMAGE(S) OBTAINED DURING PROCEDURE. Fluoroscopy 08/19/19 00:00 IMPRESSION: IMAGE(S) OBTAINED DURING PROCEDURE. Assessment & Plan - Diagnosis (1) Atrial fibrillation, chronic Is this a current diagnosis for this admission?: Yes (2) Closed fracture of right distal femur Qualifiers: Encounter type: initial encounter Fracture morphology: unspecified fracture morphology Qualified Code(s): S72.401A - Unspecified fracture of lower end of right femur, initial encounter for closed fracture Is this a current diagnosis for this admission?: Yes (4) Acute blood loss as cause of postoperative anemia Is this a current diagnosis for this admission?: Yes - Plan Summary Plan Summary: 1. Distal femur periprosthetic fracture: POD # 1 s/p ORIF distal femur fracture. The fracture is stable for mobilization. She is strict NWB. 2. Acute blood loss anemia: Patient is improved following transfusion of 2U PRBC. Patient likely lost 1U of blood at time of fracture with additional loss of approximately 400 ml during surgery. HB last evening did not reflect full equilibration. HB this morning is at a stable level. Continue to monitor H/H and transfuse as necessary. There is no ongoing blood loss so it is unlikely that patient will require additional transfusion. 3. DVT prophylaxis: Would restart Eliquis in AM.
[2019-08-20] MEDS: METOPROLOL TARTRATE 50 MG TABLET PO SCH (21:00)
[2019-08-21] MEDS: TEMAZEPAM 7.5 MG CAPSULE PO PRN ×2 (00:28→22:01)
[2019-08-21] MEDS: KETOROLAC TROMETHAMINE INJ/PF 30 MG/1 ML SDV IV PRN ×2 (02:50→20:33)
[2019-08-21] MEDS: NORMAL SALINE 1000 ML 1,000 ML IV PRN (06:40)
[2019-08-21] MEDS: OXYCODONE-ACETAMINOPHEN 5-325 MG TABLET PO PRN ×3 (07:53→22:01)
[2019-08-21] MEDS: SPIRONOLACTONE 25 MG TABLET PO SCH (09:30)
[2019-08-21] MEDS: DOCUSATE SODIUM 100 MG CAPSULE PO SCH (09:31)
[2019-08-21] MEDS: METOPROLOL TARTRATE 50 MG TABLET PO SCH ×2 (09:31→22:01)
[2019-08-21] MEDS: DOFETILIDE 125 MCG CAPSULE PO SCH ×2 (09:34→17:10)
[2019-08-21] MEDS: FLUTICASONE/VILANTEROL 200-25 MCG/DOSE IH SCH (09:35)
[2019-08-21] MEDS: PREGABALIN 100 MG CAPSULE PO SCH ×2 (09:35→17:11)
[2019-08-21] MEDS: CEFTRIAXONE 1 GM/D5W RTU 1 GM/50 ML RTUPB IV SCH (11:25)
--- NOTE | 2019-08-21 15:16 | PDOC PROGRESS REPORT ---
Subjective Progress Note for:: 08/21/19 Subjective:: The patient is much improved today. She is only experiencing mild discomfort which is improved with oral oxycodone. She was out to a chair today with therapy. She is not experiencing any lightheadedness. She states that her breathing is back to its normal baseline status. Reason For Visit: RIGHT FEMORAL FRACTURE, ATRIAL FIBRILLATION, CHRON Postoperative day #2 status post open reduction internal fixation right periprosthetic femur fracture. Acute blood loss anemia requiring transfusion 2 units packed red blood cells. Physical Exam Vital Signs: Temp Pulse Resp BP Pulse Ox 97.7 F 88 18 109/56 L 100 08/21/19 11:42 08/21/19 11:42 08/21/19 11:42 08/21/19 11:42 08/21/19 11:42 Intake & Output 08/20/19 08/21/19 08/22/19 06:59 06:59 06:59 Intake Total 5160 2518 524 Output Total 1450 400 Balance 3710 2518 124 Weight 78 kg 78 kg General appearance: PRESENT: well-developed, well-nourished Head exam: PRESENT: atraumatic, normocephalic Musculoskeletal exam: PRESENT: other - The surgical dressing is clear dry and intact. There is no evidence of drainage or persistent bleeding. The patient is able to dorsiflex and plantarflex the ankle. Sensation is intact to touch. 2+ dorsalis pedis and posterior tibial pulses. Results Laboratory Results: 08/20/19 07:15 08/20/19 07:15 08/19/19 08/20/19 08/20/19 16:45 00:49 07:15 Troponin I 0.047 0.039 0.040 NT-Pro-B Natriuret Pep 1390 H Impressions: Knee X-Ray 08/18/19 16:55 IMPRESSION: 1. Right knee arthroplasty with acute comminuted fracture of the distal femur extending through the femoral component of the arthroplasty. Moderate knee joint effusion. 2. There is moderate osteopenia. Chest X-Ray 08/19/19 00:00 IMPRESSION: Increasing small to moderate left pleural effusion with compressive atelectasis/ consolidation at the left lung base. Femur X-Ray 08/19/19 00:00 IMPRESSION: IMAGE(S) OBTAINED DURING PROCEDURE. Fluoroscopy 08/19/19 00:00 IMPRESSION: IMAGE(S) OBTAINED DURING PROCEDURE. Assessment & Plan - Diagnosis (1) Atrial fibrillation, chronic Is this a current diagnosis for this admission?: Yes (2) Closed fracture of right distal femur Qualifiers: Encounter type: initial encounter Fracture morphology: unspecified fracture morphology Qualified Code(s): S72.401A - Unspecified fracture of lower end of right femur, initial encounter for closed fracture Is this a current diagnosis for this admission?: Yes (4) Acute blood loss as cause of postoperative anemia Is this a current diagnosis for this admission?: Yes - Time Time Spent: 30 to 50 Minutes - Plan Summary Plan Summary: 1. Distal femur periprosthetic fracture: POD # 2 s/p ORIF distal femur fracture. The fracture is stable for mobilization. She is strict NWB. I have discussed with the patient that she is able to bend her knee and is encouraged to do so. I have written an order for physical therapy to remove the knee immobilizer and encouraged her to flex the knee when she is out of bed. 2. Acute blood loss anemia: Patient is improved following transfusion of 2U PRBC. Patient likely lost 1U of blood at time of fracture with additional loss of approximately 400 ml during surgery. There is no ongoing blood loss so it is unlikely that patient will require additional transfusion. The patient did not have a CBC performed today. She is currently asymptomatic. I have ordered a CBC to be performed tomorrow morning. 3. DVT prophylaxis: I would recommend that the patient restart her Eliquis. I have ordered medication to be restarted this evening. 4. Disposition: The patient is stable for discharge from an orthopedic standpoint. The patient would like to return home if possible. She is strict nonweightbearing. She may be discharged to home if she is able to transfer safely. She will continue to work with therapy for transfers. If she is unable to transfer safely with strict nonweightbearing she will require discharge to a senior care facility. I have discussed this with the patient. She should follow-up in the office 2 weeks following discharge for suture removal.
[2019-08-21] MEDS: PREDNISONE 5 MG TABLET PO SCH (17:10)
--- NOTE | 2019-08-21 17:50 | PDOC PROGRESS REPORT ---
Subjective Progress Note for:: 08/21/19 Subjective:: Patient was able to walk 25 feet with PT today. At the time of encounter, patient's only experiencing some pain in right leg but not intolerable. She denies any dizziness lightheadedness or shortness of breath. Reason For Visit: RIGHT FEMORAL FRACTURE, ATRIAL FIBRILLATION, CHRON Physical Exam Vital Signs: Temp Pulse Resp BP Pulse Ox 97.7 F 88 18 109/56 L 100 08/21/19 11:42 08/21/19 11:42 08/21/19 11:42 08/21/19 11:42 08/21/19 11:42 Intake & Output 08/20/19 08/21/19 08/22/19 06:59 06:59 06:59 Intake Total 5160 2518 524 Output Total 1450 400 Balance 3710 2518 124 Weight 78 kg 78 kg General appearance: PRESENT: no acute distress, cooperative Neck exam: ABSENT: JVD Neurological exam: PRESENT: alert, awake, oriented to person, oriented to place Results Laboratory Results: 08/20/19 07:15 08/20/19 07:15 08/19/19 08/20/19 08/20/19 16:45 00:49 07:15 Troponin I 0.047 0.039 0.040 NT-Pro-B Natriuret Pep 1390 H Impressions: Knee X-Ray 08/18/19 16:55 IMPRESSION: 1. Right knee arthroplasty with acute comminuted fracture of the distal femur extending through the femoral component of the arthroplasty. Moderate knee joint effusion. 2. There is moderate osteopenia. Chest X-Ray 08/19/19 00:00 IMPRESSION: Increasing small to moderate left pleural effusion with compressive atelectasis/ consolidation at the left lung base. Femur X-Ray 08/19/19 00:00 IMPRESSION: IMAGE(S) OBTAINED DURING PROCEDURE. Fluoroscopy 08/19/19 00:00 IMPRESSION: IMAGE(S) OBTAINED DURING PROCEDURE. Assessment and Plan - Diagnosis (1) Closed fracture of right distal femur Qualifiers: Encounter type: initial encounter Fracture morphology: unspecified fracture morphology Qualified Code(s): S72.401A - Unspecified fracture of lower end of right femur, initial encounter for closed fracture Is this a current diagnosis for this admission?: Yes (2) Atrial fibrillation, chronic Is this a current diagnosis for this admission?: Yes (3) Acute blood loss anemia Is this a current diagnosis for this admission?: Yes (4) COPD (chronic obstructive pulmonary disease) Is this a current diagnosis for this admission?: Yes (5) ARCHANA (obstructive sleep apnea) Is this a current diagnosis for this admission?: Yes - Plan Summary Summary: Continue to hold anticoagulation We will give a dose of Lasix as she did receive quite a bit of fluid both intraoperatively and postop when she was hypotensive. According to her ejection fraction is about 45% Chest x-ray shows increasing small to moderate left pleural effusion with compressive atelectasis or consolidation at the left lung base. Will place on empiric antibiotic and suggest this should be followed and escalated or discontinued if not indicated. Her slightly elevated troponin which has been flat, with a downward trend is likely secondary to her acute posthemorrhagic anemia as well as atrial fibrillation and a stress of surgery. 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 Patient underwent physical therapy today. Continue pain control. Discharge planning consulted to help with coordination for disposition for home health versus short-term rehab. CBC ordered for the morning. Hemoglobin seems to have stabilized at this point. Continue Tikosyn and metoprolol XL for control of patient's A. fib. Eliquis currently on hold after bleed. We will plan to restart this in 1 week. - Time Time Spent with patient: Less than 15 minutes
[2019-08-21 22:26] LABS: VANCOMYCIN,TROUGH 12.1 ug/mL (5.0-20.0)
[2019-08-22 06:46] LABS: HEMATOCRIT 25.5 % (36.0-47.0); HEMOGLOBIN 8.5 g/dL (12.0-15.5); MEAN CORPUSCULAR HEMOGLOBIN 30.2 pg (27.0-33.4); MEAN CORPUSCULAR HGB CONC 33.3 g/dL (32.0-36.0); MEAN CORPUSCULAR VOLUME 91 fl (80-97); PLATELET COUNT 129 10^3/uL (150-450); RED BLOOD COUNT 2.81 10^6/uL (3.72-5.28); RED CELL DISTRIBUTION WIDTH 17.2 % (11.5-14.0); WHITE BLOOD COUNT 10.2 10^3/uL (4.0-10.5)
[2019-08-22] MEDS: SPIRONOLACTONE 25 MG TABLET PO SCH (10:08)
[2019-08-22] MEDS: METOPROLOL TARTRATE 50 MG TABLET PO SCH ×2 (10:08→21:56)
[2019-08-22] MEDS: DOCUSATE SODIUM 100 MG CAPSULE PO SCH (10:10)
[2019-08-22] MEDS: PREGABALIN 100 MG CAPSULE PO SCH ×2 (10:11→17:31)
[2019-08-22] MEDS: FLUTICASONE/VILANTEROL 200-25 MCG/DOSE IH SCH (10:11)
[2019-08-22] MEDS: DOFETILIDE 125 MCG CAPSULE PO SCH ×2 (10:11→17:36)
[2019-08-22] MEDS: OXYCODONE-ACETAMINOPHEN 5-325 MG TABLET PO PRN ×2 (11:04→17:54)
[2019-08-22] MEDS ORDERED: NORMAL SALINE 1000 ML 1,000 ML IV PRN (14:46)
--- NOTE | 2019-08-22 14:46 | PDOC PROGRESS REPORT ---
Subjective Progress Note for:: 08/22/19 Subjective:: Patient states that she was set up with oxygen after her discharge from [facility]. States that she has an oxygen concentrator and portable tank at home and uses 2 L. She denies any shortness of breath at this time. Some pain in her lower extremity Reason For Visit: RIGHT FEMORAL FRACTURE, ATRIAL FIBRILLATION, CHRON Physical Exam Vital Signs: Temp Pulse Resp BP Pulse Ox 98.5 F 74 16 99/63 L 100 08/22/19 11:03 08/22/19 11:03 08/22/19 11:03 08/22/19 11:03 08/22/19 11:03 Intake & Output 08/21/19 08/22/19 08/23/19 06:59 06:59 06:59 Intake Total 2518 1204 1000 Output Total 1385 Balance 2518 -181 1000 Weight 78 kg 78.4 kg General appearance: PRESENT: no acute distress, cooperative Neck exam: ABSENT: JVD Respiratory exam: PRESENT: clear to auscultation martin, unlabored Extremities exam: PRESENT: tenderness Neurological exam: PRESENT: alert, awake Results Laboratory Results: 08/22/19 06:14 08/20/19 07:15 08/22/19 06:14 WBC 10.2 RBC 2.81 L Hgb 8.5 L Hct 25.5 L MCV 91 MCH 30.2 MCHC 33.3 RDW 17.2 H Plt Count 129 L 08/19/19 08/20/19 08/20/19 16:45 00:49 07:15 Troponin I 0.047 0.039 0.040 NT-Pro-B Natriuret Pep 1390 H Impressions: Knee X-Ray 08/18/19 16:55 IMPRESSION: 1. Right knee arthroplasty with acute comminuted fracture of the distal femur extending through the femoral component of the arthroplasty. Moderate knee joint effusion. 2. There is moderate osteopenia. Chest X-Ray 08/19/19 00:00 IMPRESSION: Increasing small to moderate left pleural effusion with compressive atelectasis/ consolidation at the left lung base. Femur X-Ray 08/19/19 00:00 IMPRESSION: IMAGE(S) OBTAINED DURING PROCEDURE. Fluoroscopy 08/19/19 00:00 IMPRESSION: IMAGE(S) OBTAINED DURING PROCEDURE. Assessment and Plan - Diagnosis (1) Closed fracture of right distal femur Qualifiers: Encounter type: initial encounter Fracture morphology: unspecified fracture morphology Qualified Code(s): S72.401A - Unspecified fracture of lower end of right femur, initial encounter for closed fracture Is this a current diagnosis for this admission?: Yes (2) Atrial fibrillation, chronic Is this a current diagnosis for this admission?: Yes (3) Acute blood loss anemia Is this a current diagnosis for this admission?: Yes (4) COPD (chronic obstructive pulmonary disease) Is this a current diagnosis for this admission?: Yes (5) ARCHANA (obstructive sleep apnea) Is this a current diagnosis for this admission?: Yes - Plan Summary Summary: Continue to hold anticoagulation We will give a dose of Lasix as she did receive quite a bit of fluid both intraoperatively and postop when she was hypotensive. According to her ejection fraction is about 45% Chest x-ray shows increasing small to moderate left pleural effusion with compressive atelectasis or consolidation at the left lung base. Will place on empiric antibiotic and suggest this should be followed and escalated or discontinued if not indicated. Her slightly elevated troponin which has been flat, with a downward trend is likely secondary to her acute posthemorrhagic anemia as well as atrial fibrillation and a stress of surgery. 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 Patient underwent physical therapy today. Continue pain control. Discharge planning consulted to help with coordination for disposition for home health versus short-term rehab. CBC ordered for the morning. Hemoglobin seems to have stabilized at this point. Continue Tikosyn and metoprolol XL for control of patient's A. fib. Eliquis currently on hold after bleed. We will plan to restart this in 1 week. 08/22/2019 Noted to be tachycardic this afternoon. Apparently her Toprol XL was not given this morning due to soft blood pressures. She did receive dofetilide. Will give a dose now and 1 L normal saline. Have taken patient off oxygen and monitored her SPO2 on pulse oximetry for about 5 minutes with SPO2 ranging from 96 to 100% on room air. We will keep off oxygen. Continue pain medications. Continue physical therapy. planner internship consulted for placement at SNF. Patient is agreeable to SNF for short-term rehab and she requires 30 days or less of acute rehab at SNF following her orthopedic surgery. - Time Time Spent with patient: 15-24 minutes
[2019-08-22] MEDS ORDERED: METOPROLOL TARTRATE 50 MG TABLET PO ONE (15:15)
[2019-08-22] MEDS: PREDNISONE 5 MG TABLET PO SCH (17:32)
[2019-08-23] MEDS: OXYCODONE-ACETAMINOPHEN 5-325 MG TABLET PO PRN ×3 (01:19→19:35)
[2019-08-23] MEDS ORDERED: METOPROLOL TARTRATE PF/INJ 5 MG/5 ML SDV IV ONE (02:30)
[2019-08-23 06:48] LABS: HEMATOCRIT 25.3 % (36.0-47.0); HEMOGLOBIN 8.4 g/dL (12.0-15.5); MEAN CORPUSCULAR HEMOGLOBIN 29.9 pg (27.0-33.4); MEAN CORPUSCULAR HGB CONC 33.2 g/dL (32.0-36.0); MEAN CORPUSCULAR VOLUME 90 fl (80-97); PLATELET COUNT 166 10^3/uL (150-450); RED BLOOD COUNT 2.81 10^6/uL (3.72-5.28); RED CELL DISTRIBUTION WIDTH 16.7 % (11.5-14.0); WHITE BLOOD COUNT 8.9 10^3/uL (4.0-10.5)
[2019-08-23] MEDS: PREGABALIN 100 MG CAPSULE PO SCH ×2 (09:43→18:54)
[2019-08-23] MEDS: METOPROLOL TARTRATE 50 MG TABLET PO SCH ×2 (09:44→21:44)
[2019-08-23] MEDS: DOCUSATE SODIUM 100 MG CAPSULE PO SCH (09:44)
[2019-08-23] MEDS: DOFETILIDE 125 MCG CAPSULE PO SCH (09:46)
[2019-08-23] MEDS: METOPROLOL TARTRATE PF/INJ 5 MG/5 ML SDV IV PRN ×2 (10:46→20:34)
[2019-08-23] MEDS: FLUTICASONE/VILANTEROL 200-25 MCG/DOSE IH SCH (12:03)
[2019-08-23] MEDS ORDERED: POTASSIUM CHLORIDE 10 MEQ TABLET.ER PO ONE (17:59)
[2019-08-23] MEDS ORDERED: MAGNESIUM OXIDE 400 MG TABLET PO ONE (17:59)
[2019-08-23] MEDS ORDERED: DOFETILIDE 125 MCG CAPSULE PO SCH (18:00)
--- NOTE | 2019-08-23 18:02 | PDOC PROGRESS REPORT ---
Subjective Progress Note for:: 08/23/19 Subjective:: Patient complains of palpitations again this morning. Leah dao noted to be in the RVR again. Otherwise feels well. States that she used to be on 500 mg twice daily of Tikosyn but recently decreased. Reason For Visit: RIGHT FEMORAL FRACTURE, ATRIAL FIBRILLATION, CHRON Physical Exam Vital Signs: Temp Pulse Resp BP Pulse Ox 98.6 F 107 H 20 111/66 94 08/23/19 11:02 08/23/19 11:02 08/23/19 11:02 08/23/19 11:02 08/23/19 11:02 Intake & Output 08/22/19 08/23/19 08/24/19 06:59 06:59 06:59 Intake Total 1204 3809 236 Output Total 1385 1780 400 Balance -181 9 -164 Weight 78.4 kg 79.2 kg General appearance: PRESENT: no acute distress, cooperative Neck exam: ABSENT: JVD Respiratory exam: PRESENT: symmetrical, unlabored. ABSENT: tachypnea, wheezes Cardiovascular exam: PRESENT: irregular rhythm, +S1, +S2, tachycardia Vascular exam: ABSENT: pallor GI/Abdominal exam: PRESENT: soft. ABSENT: rebound, rigid, tenderness Neurological exam: PRESENT: alert, awake, oriented to person, oriented to place, oriented to time Results Laboratory Results: 08/23/19 05:50 08/20/19 07:15 08/23/19 05:50 WBC 8.9 RBC 2.81 L Hgb 8.4 L Hct 25.3 L MCV 90 MCH 29.9 MCHC 33.2 RDW 16.7 H Plt Count 166 08/19/19 08/20/19 08/20/19 16:45 00:49 07:15 Troponin I 0.047 0.039 0.040 NT-Pro-B Natriuret Pep 1390 H Impressions: Knee X-Ray 08/18/19 16:55 IMPRESSION: 1. Right knee arthroplasty with acute comminuted fracture of the distal femur extending through the femoral component of the arthroplasty. Moderate knee joint effusion. 2. There is moderate osteopenia. Chest X-Ray 08/19/19 00:00 IMPRESSION: Increasing small to moderate left pleural effusion with compressive atelectasis/ consolidation at the left lung base. Femur X-Ray 08/19/19 00:00 IMPRESSION: IMAGE(S) OBTAINED DURING PROCEDURE. Fluoroscopy 08/19/19 00:00 IMPRESSION: IMAGE(S) OBTAINED DURING PROCEDURE. Assessment and Plan - Diagnosis (1) Closed fracture of right distal femur Qualifiers: Encounter type: initial encounter Fracture morphology: unspecified fracture morphology Qualified Code(s): S72.401A - Unspecified fracture of lower end of right femur, initial encounter for closed fracture Is this a current diagnosis for this admission?: Yes (2) Atrial fibrillation, chronic Is this a current diagnosis for this admission?: Yes (3) Acute blood loss anemia Is this a current diagnosis for this admission?: Yes (4) COPD (chronic obstructive pulmonary disease) Is this a current diagnosis for this admission?: Yes (5) ARCHANA (obstructive sleep apnea) Is this a current diagnosis for this admission?: Yes - Plan Summary Summary: Continue to hold anticoagulation We will give a dose of Lasix as she did receive quite a bit of fluid both intraoperatively and postop when she was hypotensive. According to her ejection fraction is about 45% Chest x-ray shows increasing small to moderate left pleural effusion with compressive atelectasis or consolidation at the left lung base. Will place on empiric antibiotic and suggest this should be followed and escalated or discontinued if not indicated. Her slightly elevated troponin which has been flat, with a downward trend is likely secondary to her acute posthemorrhagic anemia as well as atrial fibrillation and a stress of surgery. 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 Patient underwent physical therapy today. Continue pain control. Discharge planning consulted to help with coordination for disposition for home health versus short-term rehab. CBC ordered for the morning. Hemoglobin seems to have stabilized at this point. Continue Tikosyn and metoprolol XL for control of patient's A. fib. Eliquis currently on hold after bleed. We will plan to restart this in 1 week. 08/22/2019 Noted to be tachycardic this afternoon. Apparently her Toprol XL was not given this morning due to soft blood pressures. She did receive dofetilide. Will give a dose now and 1 L normal saline. Have taken patient off oxygen and monitored her SPO2 on pulse oximetry for about 5 minutes with SPO2 ranging from 96 to 100% on room air. We will keep off oxygen. Continue pain medications. Continue physical therapy. emergency planner consulted for placement at SNF. Patient is agreeable to SNF for short-term rehab and she requires 30 days or less of acute rehab at SNF following her orthopedic surgery. 08/23/2019 Patient is once again in A. fib with RVR and heart rate was in the 140s this morning. I give a dose of Lopressor IV with improvement of heart rate. Discussed with patient about increasing her Tikosyn dose back to 500 mg twice daily. We will also continue Lopressor p.o. and IV Lopressor as needed. Will check EKG with increase of Tikosyn dose now and in the morning. Replete magnesi um and potassium supplements. Resume Eliquis at 2.5 mg twice daily given patient's immobility. Can be increased back to 5 mg twice daily in a few days. - Time Time Spent with patient: 15-24 minutes
[2019-08-23] MEDS: PREDNISONE 5 MG TABLET PO SCH (18:54)
[2019-08-23] MEDS: APIXABAN 2.5 MG TABLET PO SCH (19:36)
[2019-08-23] MEDS: DOFETILIDE 500 MCG CAPSULE PO SCH (19:38)
--- NOTE | 2019-08-23 21:00 | EKG REPORT ---
SEVERITY:- ABNORMAL ECG - ATRIAL FIBRILLATION, V-RATE 76-149 LOW VOLTAGE THROUGHOUT BORDERLINE R WAVE PROGRESSION, ANTERIOR LEADS : Confirmed by: Nia Yadav MD 23-Aug-2019 21:00:07
[2019-08-24] MEDS: OXYCODONE-ACETAMINOPHEN 5-325 MG TABLET PO PRN ×3 (01:33→18:07)
[2019-08-24] MEDS: METOPROLOL TARTRATE PF/INJ 5 MG/5 ML SDV IV PRN (05:33)
[2019-08-24 06:07] LABS: BLOOD UREA NITROGEN 10 mg/dL (7-20); CALCIUM 8.3 mg/dL (8.4-10.2); CHLORIDE 109 mmol/L (98-107); GLUCOSE 107 mg/dL (75-110); POTASSIUM 5.2 mmol/L (3.6-5.0)
[2019-08-24 06:12] LABS: CARBON DIOXIDE 27 mmol/L (22-30)
[2019-08-24 06:16] LABS: ANION GAP 4 (5-19)
--- NOTE | 2019-08-24 08:02 | EKG REPORT ---
SEVERITY:- ABNORMAL ECG - ATRIAL FIBRILLATION, V-RATE 84-140 VENTRICULAR PREMATURE COMPLEX LOW VOLTAGE THROUGHOUT BORDERLINE R WAVE PROGRESSION, ANTERIOR LEADS BORDERLINE T ABNORMALITIES, INFERIOR LEADS : Confirmed by: Nia Yadav MD 24-Aug-2019 08:01:57
[2019-08-24] MEDS: FLUTICASONE/VILANTEROL 200-25 MCG/DOSE IH SCH (09:47)
[2019-08-24] MEDS: DOCUSATE SODIUM 100 MG CAPSULE PO SCH (09:48)
[2019-08-24] MEDS: METOPROLOL TARTRATE 50 MG TABLET PO SCH ×2 (09:48→21:32)
[2019-08-24] MEDS: PREGABALIN 100 MG CAPSULE PO SCH ×2 (09:48→17:12)
[2019-08-24] MEDS: DOFETILIDE 500 MCG CAPSULE PO SCH ×2 (09:49→17:14)
[2019-08-24] MEDS: APIXABAN 2.5 MG TABLET PO SCH ×2 (09:49→17:13)
[2019-08-24] MEDS ORDERED: MAGNESIUM OXIDE 400 MG TABLET PO SCH (10:00)
[2019-08-24] MEDS ORDERED: POTASSIUM CHLORIDE 10 MEQ TABLET.ER PO SCH (10:00)
--- NOTE | 2019-08-24 14:10 | PDOC PROGRESS REPORT ---
Subjective Progress Note for:: 08/24/19 Subjective:: Patient complained of some palpitations, shortness of breath this morning. Otherwise felt well. Denies any fever or chills. Reason For Visit: RIGHT FEMORAL FRACTURE, ATRIAL FIBRILLATION, CHRON Physical Exam Vital Signs: Temp Pulse Resp BP Pulse Ox 98.6 F 82 16 92/55 L 99 08/24/19 11:21 08/24/19 11:21 08/24/19 11:21 08/24/19 11:21 08/24/19 11:21 Intake & Output 08/23/19 08/24/19 08/25/19 06:59 06:59 06:59 Intake Total 3809 566 596 Output Total 1780 850 Balance 2028 596 Weight 79.2 kg 79 kg General appearance: PRESENT: no acute distress, cooperative Neck exam: ABSENT: JVD Respiratory exam: PRESENT: clear to auscultation martin, unlabored. ABSENT: tachypnea, wheezes Cardiovascular exam: PRESENT: irregular rhythm, +S1, +S2, tachycardia GI/Abdominal exam: PRESENT: soft. ABSENT: rebound, rigid, tenderness Neurological exam: PRESENT: alert, awake, oriented to person, oriented to place, oriented to time, oriented to situation Focused psych exam: ABSENT: pressured speech Skin exam: ABSENT: jaundice Results Laboratory Results: 08/23/19 05:50 08/24/19 05:25 08/24/19 05:25 Sodium 139.5 Potassium 5.2 H Chloride 109 H Carbon Dioxide 27 Anion Gap 4 L BUN 10 Creatinine 0.52 Est GFR ( Amer) > 60 Glucose 107 Calcium 8.3 L Magnesium 2.4 H 08/19/19 08/20/19 08/20/19 16:45 00:49 07:15 Troponin I 0.047 0.039 0.040 NT-Pro-B Natriuret Pep 1390 H Impressions: Knee X-Ray 08/18/19 16:55 IMPRESSION: 1. Right knee arthroplasty with acute comminuted fracture of the distal femur extending through the femoral component of the arthroplasty. Moderate knee joint effusion. 2. There is moderate osteopenia. Chest X-Ray 08/19/19 00:00 IMPRESSION: Increasing small to moderate left pleural effusion with compressive atelectasis/ consolidation at the left lung base. Femur X-Ray 08/19/19 00:00 IMPRESSION: IMAGE(S) OBTAINED DURING PROCEDURE. Fluoroscopy 08/19/19 00:00 IMPRESSION: IMAGE(S) OBTAINED DURING PROCEDURE. Assessment and Plan - Diagnosis (1) Closed fracture of right distal femur Qualifiers: Encounter type: initial encounter Fracture morphology: unspecified fracture morphology Qualified Code(s): S72.401A - Unspecified fracture of lower end of right femur, initial encounter for closed fracture Is this a current diagnosis for this admission?: Yes (2) Atrial fibrillation, chronic Is this a current diagnosis for this admission?: Yes (3) Acute blood loss anemia Is this a current diagnosis for this admission?: Yes (4) COPD (chronic obstructive pulmonary disease) Is this a current diagnosis for this admission?: Yes (5) ARCHANA (obstructive sleep apnea) Is this a current diagnosis for this admission?: Yes - Plan Summary Summary: Continue to hold anticoagulation We will give a dose of Lasix as she did receive quite a bit of fluid both intraoperatively and postop when she was hypotensive. According to her ejection fraction is about 45% Chest x-ray shows increasing small to moderate left pleural effusion with compressive atelectasis or consolidation at the left lung base. Will place on empiric antibiotic and suggest this should be followed and escalated or discontinued if not indicated. Her slightly elevated troponin which has been flat, with a downward trend is likely secondary to her acute posthemorrhagic anemia as well as atrial fibrillation and a stress of surgery. 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 Patient underwent physical therapy today. Continue pain control. Discharge planning consulted to help with coordination for disposition for home health versus short-term rehab. CBC ordered for the morning. Hemoglobin seems to have stabilized at this point. Continue Tikosyn and metoprolol XL for control of patient's A. fib. Eliquis currently on hold after bleed. We will plan to restart this in 1 week. 08/22/2019 Noted to be tachycardic this afternoon. Apparently her Toprol XL was not given this morning due to soft blood pressures. She did receive dofetilide. Will give a dose now and 1 L normal saline. Have taken patient off oxygen and monitored her SPO2 on pulse oximetry for about 5 minutes with SPO2 ranging from 96 to 100% on room air. We will keep off oxygen. Continue pain medications. Continue physical therapy. personal financial planner consulted for placement at SNF. Patient is agreeable to SNF for short-term rehab and she requires 30 days or less of acute rehab at SNF following her orthopedic surgery. 08/23/2019 Patient is once again in A. fib with RVR and heart rate was in the 140s this morning. I give a dose of Lopressor IV with improvement of heart rate. Discussed with patient about increasing her Tikosyn dose back to 500 mg twice daily. We will also continue Lopressor p.o. and IV Lopressor as needed. Will check EKG with increase of Tikosyn dose now and in the morning. Replete ma gnesium and potassium supplements. Resume Eliquis at 2.5 mg twice daily given patient's immobility. Can be increased back to 5 mg twice daily in a few days. 08/24/2019 Patient's atrial fibrillation remains uncontrolled this morning with heart rates in the 1 teens to 120s and reported to go as high as 130s when she ambulates. Her morning EKG has been reviewed and shows QTC of 440. We will continue with increased dose of Tikosyn. I will also increase her Lopressor dose to 75 mg twice daily. Continue to monitor on telemetry. Will repeat another EKG at 3 PM to monitor QTC. Blood work shows hyperkalemia and hypermagnesemia but these are likely secondary to repletion of electrolytes yesterday. Her potassium and magnesium supplements have been discontinued. If heart rate continues to remain uncontrolled today, will need to get cardiology involved. Continue Eliquis. Pain meds as needed. - Time Time Spent with patient: Less than 15 minutes
[2019-08-24] MEDS: PREDNISONE 5 MG TABLET PO SCH (17:13)
--- NOTE | 2019-08-24 18:51 | EKG REPORT ---
SEVERITY:- ABNORMAL ECG - ATRIAL FIBRILLATION BORDERLINE R WAVE PROGRESSION, ANTERIOR LEADS : Confirmed by: Nia Yadav MD 24-Aug-2019 18:51:28
[2019-08-24] MEDS: TEMAZEPAM 7.5 MG CAPSULE PO PRN (21:32)
[2019-08-25] MEDS: OXYCODONE-ACETAMINOPHEN 5-325 MG TABLET PO PRN ×3 (01:09→15:54)
[2019-08-25 06:48] LABS: CARBON DIOXIDE 28 mmol/L (22-30)
[2019-08-25 06:51] LABS: BLOOD UREA NITROGEN 14 mg/dL (7-20); CALCIUM 8.6 mg/dL (8.4-10.2); CHLORIDE 107 mmol/L (98-107); GLUCOSE 85 mg/dL (75-110); POTASSIUM 4.7 mmol/L (3.6-5.0)
[2019-08-25 06:52] LABS: ANION GAP 3 (5-19)
[2019-08-25] MEDS: METOPROLOL TARTRATE 50 MG TABLET PO SCH (09:18)
[2019-08-25] MEDS: DOCUSATE SODIUM 100 MG CAPSULE PO SCH (09:24)
[2019-08-25] MEDS: APIXABAN 2.5 MG TABLET PO SCH (09:25)
[2019-08-25] MEDS: FLUTICASONE/VILANTEROL 200-25 MCG/DOSE IH SCH (09:25)
[2019-08-25] MEDS: PREGABALIN 100 MG CAPSULE PO SCH ×2 (09:25→18:01)
[2019-08-25 10:49] LABS: ABSOLUTE BASOPHILS # (AUTO) 0.1 10^3/uL (0.0-0.2); ABSOLUTE EOSINOPHILS # (AUTO) 0.4 10^3/uL (0.0-0.6); ABSOLUTE LYMPHOCYTES (AUTO) 1.5 10^3/uL (0.5-4.7); ABSOLUTE MONOCYTES (AUTO) 0.9 10^3/uL (0.1-1.4); ABSOLUTE NEUT (AUTO) 5.7 10^3/uL (1.7-8.2); BASOPHILS % (AUTO) 1.1 % (0-2); HEMATOCRIT 28.9 % (36.0-47.0); HEMOGLOBIN 9.2 g/dL (12.0-15.5); LYMPHOCYTES % (AUTO) 17.3 % (13-45); MEAN CORPUSCULAR HEMOGLOBIN 29.5 pg (27.0-33.4); MEAN CORPUSCULAR VOLUME 93 fl (80-97); MONOCYTES % (AUTO) 10.3 % (3-13); PLATELET COUNT 279 10^3/uL (150-450); RED BLOOD COUNT 3.12 10^6/uL (3.72-5.28); RED CELL DISTRIBUTION WIDTH 17.4 % (11.5-14.0); SEGMENTED NEUTROPHILS % (AUTO) 66.3 % (42-78); TOTAL CELLS COUNTED % (AUTO) 100 %; WHITE BLOOD COUNT 8.5 10^3/uL (4.0-10.5)
[2019-08-25] MEDS ORDERED: METOPROLOL TARTRATE 25 MG TABLET PO ONE (11:00)
[2019-08-25] MEDS: DOFETILIDE 500 MCG CAPSULE PO SCH ×2 (11:21→17:58)
--- NOTE | 2019-08-25 12:06 | RADIOLOGY REPORT (SQ) ---
EXAM DESCRIPTION: CTA CHEST IMAGES COMPLETED DATE/TIME: 08/25/2019 11:44 am REASON FOR STUDY: afib rvr. recent fracture. sob. r/o pe. Shortness of breath COMPARISON: CT chest 08/09/2017, 01/26/2016 TECHNIQUE: CT scan of the chest performed using helical scanning technique with dynamic intravenous contrast injection. Images reviewed with lung, soft tissue and bone windows. Reconstructed coronal and sagittal MPR images reviewed. Additional 3 dimensional post-processing performed to develop Maximal Intensity Projection images (TN P). All images stored on PACS. All CT scanners at this facility use dose modulation, iterative reconstruction, and/or weight based d osing when appropriate to reduce radiation dose to as low as reasonably achievable (ALARA). [facility]: Dose Right [facility]: CareDose [facility]: Dose Right [facility]: Teradose 4D [facility]: Cerapedics CONTRAST TYPE AND DOSE: contrast/concentration: Isovue 350.00 mg/ml; Total Contrast Delivered: 65.0 ml; Total Saline Delivered: 78.0 ml Contrast bolus adequate for pulmonary arteries and aorta. RENAL FUNCTION: Creatinine 0.52 RADIATION DOSE: CT Rad equipment meets quality standard of care and radiation dose reduction techniq ues were employed. CTDIvol: 19.8 - 29.1 mGy. DLP: 934 mGy-cm. . LIMITATIONS: None. FINDINGS: LUNGS AND PLEURA: Minimal bibasilar atelectasis. No pleural effusion or pneumothorax. AORTA AND GREAT VESSELS: No thoracic aortic aneurysm or dissection HEART: No pericardial effusion. No significant coronary artery calcifications. Calcified aortic valv e. PULMONARY ARTERIES: Tiny pulmonary embolus in a distal branch of the right lower lobe pulmonary arter y, best shown on axial images 72-75. HILAR AND MEDIASTINAL STRUCTURES: No identified masses or abnormal nodes. HARDWARE: None in the chest. UPPER ABDOMEN: No significant findings. Limited exam. THYROID AND OTHER SOFT TISSUES: No masses. No adenopathy. BONES: No acute or significant finding. 3D MIPS: Confirm above findings. OTHER: No other significant finding. IMPRESSION: Positive study for small acute pulmonary embolus in the right lower lobe. Bibasilar atelectasis. COMMENT: Quality ID # [id number]: Final reports with documentation of one or more dose reduction techniques (e.g., Automated exposure control, adjustment of the mA and/or kV according to patient size, use of iterative reconstruction technique) TECHNICAL DOCUMENTATION: JOB ID: [id number] 2010 [employer]- All Rights Reserved Reading location - IP/workstation name: [email or web address]
--- NOTE | 2019-08-25 12:23 | PDOC CONSULTATION ---
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 The patient is followed by Dr. Noel at [facility] for her atrial fibrillation and the patient underwent successful cardioversion 5 days prior to admission to [facility]. Unfortunately, she suffered a fall which resulted in a right distal femur periprosthetic fracture for which she was admitted to our facility and underwent operative treatment without immediate cardiac complications however she experienced 2 episodes of severe hypotension after surgery and she was found to be anemic reason why she received 2 units of PRBc's with stabilization of her hemoglobin which is around 9 as of this morning. Her atrial fibrillation recurred since admission which had been worsening despite adequate treatment with increasing doses of Tykosin and BB. Her telemetry shows persistent a-fib with RVR with heart rates between 120 and 130 bpm at rest. This morning she is resting in bed with mild palpitations. She denied chest pain. Past Medical History Cardiac Medical History: Reports: Atrial Fibrillation, Congestive Heart Failure - Diastolic, Hyperlipidema, Hypertension Denies: Myocardial Infarction Pulmonary Medical History: Reports: Asthma, Chronic Obstructive Pulmonary Disease (COPD) - On chronic steroids, Intubation, Pneumonia, Respiratory Failure - On home oxygen, Sleep Apnea Neurological Medical History: Denies: Seizures Endocrine Medical History: Reports: Hypothyroidism GI Medical History: Denies: Hepatitis, Hiatal Hernia Musculoskeltal Medical History: Reports: Fibromyalgia Skin Medical History: Denies: Psoriasis Psychiatric Medical History: Reports: Depression Traumatic Medical History: Denies: Traumatic Brain Injury Hematology: Reports: Anemia - HX OF ON IRON SUPP Denies: Sickle Cell Disease Past Surgical History Past Surgical History: Reports: Section - X4, Orthopedic Surgery - right knee replacement, right toe, left shoulder, Tonsillectomy Denies: Amputation, Mastectomy, Pacemaker Social History Smoking Status: Former Smoker Electronic Cigarette use?: No Frequency of Alcohol Use: None Hx Recreational Drug Use: No Drugs: None Hx Prescription Drug Abuse: No - Advance Directive Resuscitation Status: Full Code Family History Family History: None, CAD, Hypertension, Other Parental Family History Reviewed: Yes Children Family History Reviewed: Yes Sibling(s) Family History Reviewed.: Yes Medication/Allergy Home Medications: Furosemide [Lasix 40 mg Tablet] 40 mg PO BID 05/02/17 Prednisone 2.5 mg PO QPM #30 tablet 05/09/17 Allopurinol [Zyloprim 300 mg Tablet] 300 mg PO DAILY 12/27/17 Cyclobenzaprine HCl [Flexeril 10 mg Tablet] 10 mg PO TIDP PRN 12/27/17 Dofetilide [Tikosyn 500 Mcg Capsule] 250 mcg PO BID 12/27/17 Magnesium Oxide [Mag-Ox 400 mg Tablet] 250 mg PO DAILY 12/27/17 Montelukast Sodium [Singulair 10 mg Tablet] 10 mg PO QHS 12/27/17 Potassium Chloride [Klor-Con 10 Meq Capsule ER] 20 meq PO DAILY 12/27/17 Prednisone 5 mg PO QAM 12/27/17 Pregabalin [Lyrica] 300 mg PO BID 12/27/17 Ropinirole HCl [Requip] 4 mg PO DAILY 12/27/17 Spironolactone 25 mg PO BID 12/27/17 Apixaban [Eliquis 5 mg Tablet] 1 tab PO BID 08/18/19 Diclofenac Epolamine 1 patch TD BID 08/18/19 Fluticasone/Salmeterol [Advair 250-50 Diskus 14 Dose/Diskus] 1 puff IH BID 08/18/19 Lidocaine [Lidoderm 5% (700 mg) Transdermal Patch] 1 patch TP DAILY 08/18/19 Metoprolol Succinate [Toprol Xl] 200 mg PO DAILY 08/18/19 Multivitamin [Multiple Vitamins] 1 tab PO DAILY 08/18/19 Oxycodone HCl/Acetaminophen [Percocet 10-325 mg Tablet] 1 tab PO Q6H PRN 08/18/19 Oxycodone Myristate [Xtampza ER] 13.5 mg PO BID 08/18/19 Topiramate [Qudexy Xr] 50 mg PO DAILY 08/18/19 Ubidecarenone [Coq10] 1 tab PO DAILY 08/18/19 Allergies/Adverse Reactions: FERNANDO Inhibitors Allergy (Verified 03/04/17 22:14) amoxicillin [From Augmentin] Allergy (Verified 03/04/17 22:14) amoxicillin trihydrate [From Augmentin] Allergy (Verified 12/26/16 18:49) Hives bumetanide [From Bumex] Allergy (Verified 03/04/17 22:14) clavulanic acid [From Augmentin] Allergy (Verified 03/04/17 22:14) Potassium Clavulanate * [From Augmentin] Allergy (Verified 12/26/16 18:49) Hives Physical Exam Vital Signs: Temp Pulse Resp BP Pulse Ox 97.9 F 122 H 18 101/70 99 08/25/19 07:55 08/25/19 07:55 08/25/19 07:55 08/25/19 07:55 08/25/19 07:55 Intake & Output 08/24/19 08/25/19 08/26/19 06:59 06:59 06:59 Intake Total 566 1826 Output Total 850 Balance -284 1826 Weight 79 kg 90.5 kg Results Laboratory Results: 08/25/19 06:11 08/25/19 06:11 08/25/19 08/25/19 06:11 06:11 WBC 8.5 RBC 3.12 L Hgb 9.2 L Hct 28.9 L MCV 93 MCH 29.5 MCHC 32.0 RDW 17.4 H Plt Count 279 Seg Neutrophils % 66.3 Sodium 137.7 Potassium 4.7 Chloride 107 Carbon Dioxide 28 Anion Gap 3 L BUN 14 Creatinine 0.49 L Est GFR ( Amer) > 60 Glucose 85 Calcium 8.6 Magnesium 2.2 08/19/19 08/20/19 08/20/19 16:45 00:49 07:15 Troponin I 0.047 0.039 0.040 NT-Pro-B Natriuret Pep 1390 H Impressions: Knee X-Ray 08/18/19 16:55 IMPRESSION: 1. Right knee arthroplasty with acute comminuted fracture of the distal femur extending through the femoral component of the arthroplasty. Moderate knee joint effusion. 2. There is moderate osteopenia. Chest X-Ray 08/19/19 00:00 IMPRESSION: Increasing small to moderate left pleural effusion with compressive atelectasis/ consolidation at the left lung base. Femur X-Ray 08/19/19 00:00 IMPRESSION: IMAGE(S) OBTAINED DURING PROCEDURE. Fluoroscopy 08/19/19 00:00 IMPRESSION: IMAGE(S) OBTAINED DURING PROCEDURE. 08/25/19 06:11 08/25/19 06:11 MCV 93 fl (80-97) 08/25/19 06:11 MCH 29.5 pg (27.0-33.4) 08/25/19 06:11 MCHC 32.0 g/dL (32.0-36.0) 08/25/19 06:11 RDW 17.4 % (11.5-14.0) H 08/25/19 06:11 Seg Neutrophils % 66.3 % (42-78) 08/25/19 06:11 Chloride 107 mmol/L (98-107) 08/25/19 06:11 Carbon Dioxide 28 mmol/L (22-30) 08/25/19 06:11 Anion Gap 3 (5-19) L 08/25/19 06:11 Est GFR ( Amer) > 60 (>60) 08/25/19 06:11 Glucose 85 mg/dL (75-110) 08/25/19 06:11 Calcium 8.6 mg/dL (8.4-10.2) 08/25/19 06:11 Magnesium 2.2 mg/dL (1.6-2.3) 08/25/19 06:11 Total Bilirubin 0.6 mg/dL (0.2-1.3) 08/18/19 18:00 AST 27 U/L (14-36) 08/18/19 18:00 Alkaline Phosphatase 100 U/L (38-126) 08/18/19 18:00 Total Protein 6.6 g/dL (6.3-8.2) 08/18/19 18:00 Albumin 4.1 g/dL (3.5-5.0) 08/18/19 18:00 Urine Color YELLOW 08/18/19 19:05 Urine Appearance CLEAR 08/18/19 19:05 Urine pH 7.0 (5.0-9.0) 08/18/19 19:05 Ur Specific [place] 1.011 08/18/19 19:05 Urine Protein NEGATIVE mg/dL (NEGATIVE) 08/18/19 19:05 Urine Glucose (UA) NEGATIVE mg/dL (NEGATIVE) 08/18/19 19:05 Urine Ketones NEGATIVE mg/dL (NEGATIVE) 08/18/19 19:05 Urine Blood NEGATIVE (NEGATIVE) 08/18/19 19:05 Urine RBC (Auto) 1 /HPF 08/18/19 19:05 Blood Type A POSITIVE 08/19/19 19:42 Antibody Screen NEGATIVE 08/19/19 19:42 08/19/19 08/20/19 08/20/19 16:45 00:49 07:15 Troponin I 0.047 0.039 0.040 NT-Pro-B Natriuret Pep 1390 H Current Medication List Generic Name Dose Route Start Last Admin Trade Name Freq PRN Reason Stop Dose Admin Acetaminophen 650 mg 08/18/19 18:26 08/19/19 22:27 Tylenol 325 Mg Tablet PO 09/17/19 18:25 650 mg Q4HP PRN Administration FOR PAIN SCALE 1-2 Albuterol/Ipratropium 3 ml 08/18/19 18:26 Duoneb 3 Ml Ampul NEB 09/17/19 18:25 RTQ6HP PRN SHORTNESS OF BREATH Apixaban 2.5 mg 08/23/19 19:00 08/25/19 09:25 Eliquis 2.5 Mg Tablet PO 09/22/19 18:59 2.5 mg BID GARRY Administration Docusate Sodium 100 mg 08/19/19 10:00 08/25/19 09:24 Colace 100 Mg Capsule PO 09/18/19 09:59 100 mg DAILY GARRY Administration Dofetilide 500 mcg 08/23/19 20:00 08/25/19 11:21 Tikosyn 500 Mcg Capsule PO 09/22/19 19:59 500 mcg BID GARRY Administration Fluticasone/Vilanterol 1 inh 08/19/19 10:00 08/25/19 09:25 Breo 200-25 Mcg Ellipta 14 Dose/Dpi IH 09/18/19 09:59 1 inhaler DAILY GARRY Administration Metoprolol Tartrate 5 mg 08/23/19 09:35 08/24/19 05:33 Lopressor Inj/Pf 5 Mg/5 Ml Sdv IV 09/22/19 09:34 5 mg Q6HP PRN Administration GIVE FOR HR > [115] Metoprolol Tartrate 75 mg 08/24/19 10:00 08/25/19 09:18 Lopressor 50 Mg Tablet PO 09/23/19 09:59 75 mg Q12 GARRY Administration Ondansetron HCl 4 mg 08/18/19 18:26 Zofran Odt 4 Mg Tablet PO 09/17/19 18:25 Q6HP PRN FOR NAUSEA/VOMITING Oxycodone/Acetaminophen 1 tab 08/18/19 18:26 08/25/19 09:24 Percocet 5-325 Mg Tablet PO 08/25/19 18:25 1 tab Q6HP PRN Administration FOR PAIN SCALE 3-4 Prednisone 2.5 mg 08/19/19 18:00 08/24/19 17:13 Deltasone 5 Mg Tablet PO 09/18/19 17:59 2.5 mg QPM GARRY Administration Pregabalin 300 mg 08/19/19 10:00 08/25/19 09:25 Lyrica 100 Mg Capsule PO 09/18/19 09:59 300 mg BID GARRY Administration Spironolactone 25 mg 08/21/19 10:00 08/22/19 10:08 Aldactone 25 Mg Tablet PO 09/20/19 09:59 Not Given DAILY GARRY Temazepam 7.5 mg 08/18/19 18:26 08/24/19 21:32 Restoril 7.5 Mg Capsule PO 08/25/19 18:25 7.5 mg HSP PRN Administration SLEEP OR INSOMNIA Discontinued Medications Generic Name Dose Route Start Last Admin Trade Name Freq PRN Reason Stop Dose Admin Acetaminophen 650 mg 08/19/19 19:45 08/19/19 23:53 Tylenol 325 Mg Tablet PO 08/20/19 19:44 650 mg .BEFORE TRANSFUSION PRN Administration THIS MED IS NOT "PRN" Bupivacaine HCl/Epinephrine Bitart Confirm 08/19/19 10:18 08/19/19 11:35 Sensorcaine 0.5%-Epi [id number] Mpf 30 Ml Vial Administered 08/19/19 10:19 25 ml Dose Administration 30 ml .ROUTE .STK-MED ONE Diphenhydramine HCl 12.5 mg 08/19/19 11:49 Benadryl Inj 50 Mg/1 Ml Vial IV 08/19/19 14:49 .WHILE IN PACU PRN ITCHING Diphenhydramine HCl 25 mg 08/19/19 19:45 Benadryl 25 Mg Capsule PO 08/20/19 19:44 .BEFORE TRANSFUSION PRN THIS MED IS NOT "PRN" Dofetilide 250 mcg 08/19/19 10:00 08/19/19 10:47 Tikosyn 500 Mcg Capsule PO 09/18/19 09:59 Not Given BID GARRY Dofetilide 250 mcg 08/19/19 18:00 08/23/19 09:46 Tikosyn 125 Mcg Capsule PO 09/18/19 17:59 250 mcg BID GARRY Administration Fentanyl Citrate Confirm 08/19/19 09:52 Sublimaze Inj/Pf 100 Mcg/2 Ml Ampule Administered 08/19/19 09:53 Dose 100 mcg .ROUTE .STK-MED ONE Fentanyl Citrate 25 mcg 08/19/19 11:49 Sublimaze Inj/Pf 100 Mcg/2 Ml Ampule IV 08/19/19 14:49 .WHILE IN PACU PRN PAIN SCALE 2-3 Fentanyl Citrate 12.5 mcg 08/19/19 11:49 Sublimaze Inj/Pf 100 Mcg/2 Ml Ampule IV 08/19/19 14:49 .WHILE IN PACU PRN PAIN SCALE OF 1 Fentanyl Citrate 50 mcg 08/19/19 11:49 Sublimaze Inj/Pf 100 Mcg/2 Ml Ampule IV 08/19/19 14:49 .WHILE IN PACU PRN PAIN SCALE 4-5 Furosemide 20 mg 08/20/19 13:00 08/20/19 13:01 Lasix Inj/Pf 20 Mg/2 Ml Sdv IV 08/20/19 13:01 20 mg NOW ONE Administration Hard Fat/Phenylephrine 10 mg 08/19/19 10:00 Nash-Synephrine Inj/Pf 10 Mg/1 Ml Sdv .ROUTE 08/19/19 10:01 .STK-MED ONE Hydromorphone HCl Confirm 08/19/19 09:52 Dilaudid Inj/Pf 2 Mg/Ml Ampule Administered 08/19/19 09:53 Dose 2 mg .ROUTE .STK-MED ONE Sodium Chloride 1,000 mls @ 75 mls/hr 08/18/19 18:26 08/22/19 07:00 Nacl 0.9% 1000 Ml Iv Soln IV 09/17/19 18:25 Infused CONTINUOUS PRN Infusion THIS MED IS NOT "PRN" Vancomycin HCl 1,000 mg/ 250 mls @ 166.667 mls/hr 08/19/19 22:00 08/20/19 22:33 Dextrose IV Infused Q12 GARRY Infusion Sodium Chloride 250 mls @ 30 mls/hr 08/19/19 19:44 Nacl 0.9% 250 Ml Iv Soln IV 08/20/19 19:43 .DURING TRANSFUSION PRN THIS MED IS NOT "PRN" Lactated Ringer's 1,000 mls @ 167 mls/hr 08/19/19 19:44 Lactated Ringers 1000 Ml Iv Soln IV 09/18/19 19:43 CONTINUOUS PRN THIS MED IS NOT "PRN" Sodium Chloride 250 mls @ 30 mls/hr 08/19/19 19:45 Nacl 0.9% 250 Ml Iv Soln IV 08/20/19 19:44 .DURING TRANSFUSION PRN THIS MED IS NOT "PRN" Sodium Chloride 1,000 mls @ 0 mls/hr 08/19/19 20:30 08/19/19 22:29 Nacl 0.9% 1000 Ml Iv Soln IV 08/19/19 20:31 500 mls/hr BOLUS ONE Administration Ceftriaxone Sodium/Dextrose 1 gm in 50 mls @ 100 mls/hr 08/20/19 13:00 08/21/19 11:55 Rocephin Rtu 1 Gm/D5w 50 Ml Premix IV 08/27/19 12:59 Infused NOON GARRY Infusion Sodium Chloride 1,000 mls @ 0 mls/hr 08/22/19 14:46 08/22/19 17:30 Nacl 0.9% 1000 Ml Iv Soln IV 08/22/19 23:59 Infused BOLUS PRN Infusion THIS MED IS NOT "PRN" Wide Open Ketorolac Tromethamine 15 mg 08/20/19 03:20 08/21/19 20:33 Toradol Inj/Pf 30 Mg/1 Ml Sdv IV 08/25/19 03:19 15 mg Q6HP PRN Administration PAIN Lidocaine HCl 4 ml 08/19/19 10:00 Xylocaine 2% Inj-Pf (20 Mg/Ml) 2 Ml Ampul .ROUTE 08/19/19 10:01 .STK-MED ONE Magnesium Oxide 800 mg 08/23/19 17:59 08/23/19 19:36 Mag-Ox 400 Mg Tablet PO 08/23/19 18:00 800 mg NOW ONE Administration Magnesium Oxide 400 mg 08/24/19 10:00 Mag-Ox 400 Mg Tablet PO 09/23/19 09:59 DAILY GARRY Meperidine HCl 12.5 mg 08/19/19 11:49 Demerol Inj 25 Mg/1 Ml Syringe IV 08/19/19 14:49 .WHILE IN PACU PRN Shivering Metoprolol Succinate 50 mg 08/20/19 08:45 08/20/19 08:50 Toprol Xl 50 Mg Tab.Sr PO 08/20/19 08:46 50 mg NOW ONE Administration Metoprolol Tartrate 50 mg 08/20/19 22:00 08/23/19 21:44 Lopressor 50 Mg Tablet PO 09/19/19 21:59 50 mg Q12 GARRY Administration Metoprolol Tartrate 50 mg 08/22/19 15:15 08/22/19 16:16 Lopressor 50 Mg Tablet PO 08/22/19 15:16 50 mg NOW ONE Administration Metoprolol Tartrate 5 mg 08/23/19 02:30 08/23/19 02:30 Lopressor Inj/Pf 5 Mg/5 Ml Sdv IV 08/23/19 02:31 5 mg NOW ONE Administration Metoprolol Tartrate 25 mg 08/25/19 11:00 08/25/19 11:21 Lopressor 25 Mg Tablet PO 08/25/19 11:01 25 mg NOW ONE Administration Midazolam HCl Confirm 08/19/19 09:52 Versed 2 Mg/2 Ml Inj Administered 08/19/19 09:53 Dose 2 mg .ROUTE .STK-MED ONE Morphine Sulfate 4 mg 08/18/19 17:34 08/18/19 17:49 Morphine 10 Mg/Ml Inj IV 08/18/19 17:35 4 mg ONCE ONE Administration Ondansetron HCl 4 mg 08/18/19 17:32 08/18/19 17:48 Zofran Inj/Pf 4 Mg/2 Ml Sdv IV 08/18/19 17:33 4 mg NOW ONE Administration Ondansetron HCl 4 mg 08/19/19 11:49 Zofran Inj/Pf 4 Mg/2 Ml Sdv IV 08/19/19 14:50 .WHILE IN PACU PRN NAUSEA AND VOMITING Ondansetron HCl 4 mg 08/19/19 10:00 Zofran Inj/Pf 4 Mg/2 Ml Sdv .ROUTE 08/19/19 10:01 .STK-MED ONE Potassium Chloride 40 meq 08/19/19 15:00 08/19/19 18:00 Klor-Con 10 Meq Tablet Er PO 08/19/19 15:01 Not Given NOW ONE Potassium Chloride 40 meq 08/19/19 19:00 08/19/19 23:02 Klor-Con 10 Meq Tablet Er PO 08/19/19 19:01 Not Given NOW ONE Potassium Chloride 40 meq 08/19/19 23:00 08/19/19 23:02 Klor-Con 10 Meq Tablet Er PO 08/19/19 23:01 40 meq NOW ONE Administration Potassium Chloride 40 meq 08/23/19 17:59 08/23/19 19:36 Klor-Con 10 Meq Tablet Er PO 08/23/19 18:00 40 meq NOW ONE Administration Potassium Chloride 40 meq 08/24/19 10:00 Klor-Con 10 Meq Tablet Er PO 09/23/19 09:59 DAILY GARRY Promethazine HCl 12.5 mg 08/19/19 11:49 Phenergan Inj 25 Mg/1 Ml Vial IV 08/19/19 14:49 .WHILE IN PACU PRN NAUSEA AND VOMITING Promethazine HCl 25 mg 08/19/19 11:49 Phenergan Inj 25 Mg/1 Ml Vial IV 08/19/19 14:49 .WHILE IN PACU PRN NAUSEA AND VOMITING Propofol Confirm 08/19/19 09:52 Diprivan Inj 200 Mg/20 Ml Vial Administered 08/19/19 09:53 Dose 200 mg IV .STK-MED ONE Rocuronium [facility] 50 mg 08/19/19 10:00 Zemuron Inj 50 Mg/5 Ml Vial IV 08/19/19 10:01 .STK-MED ONE Vancomycin HCl Confirm 08/19/19 10:30 Vancocin Inj 500 Mg Vial Administered 08/19/19 10:31 Dose 500 mg .ROUTE .STK-MED ONE Assessment & Plan - Diagnosis (1) Atrial fibrillation with RVR Plan: Unfortunately the patient's atrial fibrillation recurred after her fall and has remained uncontrolled despite increased doses of Tykosin and BB. She does have radiological evidence of worsening of her pleural effusion with elevated Pro BNP. Her uncontrolled a-fib is likely secondary to her post op state, anemia and other comorbidities however is is worth noting that she had been admitted in the past at [facility] with afib with RVR resulting in respiratory failure. At this point, I believe the patient will be better served if transferred to [facility] as her needs have exceeded the capabilities of our facility. Recommendations: -Chest CTA to assess for PE as her anticoagulation was briefly discontinued in the perioperative period. -Transfer to [facility].
[2019-08-25] MEDS ORDERED: NORMAL SALINE 250 ML IV PRN ×2 (15:38)
[2019-08-25] MEDS ORDERED: APIXABAN 2.5 MG TABLET PO ONE (15:45)
--- NOTE | 2019-08-25 17:26 | PDOC TRANSFER SUMMARY ---
General Admission Date/PCP: 08/18/19 18:12 BRIANNA TORRES MD Admission Date: 08/18/19 Transfer Date: 08/25/19 Accepting Facility: [facility] Accepting Physician: Dr. Booker Resuscitation Status: Full Code - Transfer Diagnosis (1) Persistent atrial fibrillation with rapid ventricular response Is this a current diagnosis for this admission?: Yes (2) Closed fracture of right distal femur Is this a current diagnosis for this admission?: Yes (3) Pulmonary embolism on right Is this a current diagnosis for this admission?: Yes (4) Acute blood loss anemia Is this a current diagnosis for this admission?: Yes (5) COPD (chronic obstructive pulmonary disease) Is this a current diagnosis for this admission?: Yes (6) ARCHANA (obstructive sleep apnea) Is this a current diagnosis for this admission?: Yes - Transfer Medications Home Medications: Furosemide [Lasix 40 mg Tablet] 40 mg PO BID 05/02/17 Allopurinol [Zyloprim 300 mg Tablet] 300 mg PO DAILY 12/27/17 Cyclobenzaprine HCl [Flexeril 10 mg Tablet] 10 mg PO TIDP PRN 12/27/17 Dofetilide [Tikosyn 500 Mcg Capsule] 250 mcg PO BID 12/27/17 Magnesium Oxide [Mag-Ox 400 mg Tablet] 250 mg PO DAILY 12/27/17 Montelukast Sodium [Singulair 10 mg Tablet] 10 mg PO QHS 12/27/17 Potassium Chloride [Klor-Con 10 Meq Capsule ER] 20 meq PO DAILY 12/27/17 Prednisone 5 mg PO QAM 12/27/17 Pregabalin [Lyrica] 300 mg PO BID 12/27/17 Ropinirole HCl [Requip] 4 mg PO DAILY 12/27/17 Spironolactone 25 mg PO BID 12/27/17 Apixaban [Eliquis 5 mg Tablet] 1 tab PO BID 08/18/19 Diclofenac Epolamine 1 patch TD BID 08/18/19 Fluticasone/Salmeterol [Advair 250-50 Diskus 14 Dose/Diskus] 1 puff IH BID 08/18/19 Lidocaine [Lidoderm 5% (700 mg) Transdermal Patch] 1 patch TP DAILY 08/18/19 Metoprolol Succinate [Toprol Xl] 200 mg PO DAILY 08/18/19 Multivitamin [Multiple Vitamins] 1 tab PO DAILY 08/18/19 Oxycodone HCl/Acetaminophen [Percocet 10-325 mg Tablet] 1 tab PO Q6H PRN 08/18/19 Oxycodone Myristate [Xtampza ER] 13.5 mg PO BID 08/18/19 Topiramate [Qudexy Xr] 50 mg PO DAILY 08/18/19 Ubidecarenone [Coq10] 1 tab PO DAILY 08/18/19 Transfer Medications: Current Medications Acetaminophen (Tylenol 325 Mg Tablet) 650 mg PO Q4HP PRN PRN Reason: FOR PAIN SCALE 1-2 Stop: 09/17/19 18:25 Last Admin: 08/19/19 22:27 Dose: 650 mg Documented by: Albuterol/Ipratropium (Duoneb 3 Ml Ampul) 3 ml NEB RTQ6HP PRN PRN Reason: SHORTNESS OF BREATH Stop: 09/17/19 18:25 Apixaban (Eliquis 2.5 Mg Tablet) 10 mg PO Q12 [facility] Stop: 09/24/19 21:59 Docusate Sodium (Colace 100 Mg Capsule) 100 mg PO DAILY [facility] Stop: 09/18/19 09:59 Last Admin: 08/25/19 09:24 Dose: 100 mg Documented by: Dofetilide (Tikosyn 500 Mcg Capsule) 500 mcg PO BID [facility] Stop: 09/22/19 19:59 Last Admin: 08/25/19 11:21 Dose: 500 mcg Documented by: Fluticasone/Vilanterol (Breo 200-25 Mcg Ellipta 14 Dose/Dpi) 1 inh IH DAILY [facility] Stop: 09/18/19 09:59 Last Admin: 08/25/19 09:25 Dose: 1 inhaler Documented by: Furosemide (Lasix 40 Mg Tablet) 40 mg PO BID [facility] Stop: 09/24/19 17:59 Sodium Chloride (Nacl 0.9% 250 Ml Iv Soln) 250 mls @ 30 mls/hr IV .DURING TRANSFUSION PRN PRN Reason: THIS MED IS NOT "PRN" Stop: 08/26/19 15:37 Sodium Chloride (Nacl 0.9% 250 Ml Iv Soln) 250 mls @ 0 mls/hr IV CONTINUOUS PRN PRN Reason: AFTER EACH UNIT Stop: 08/26/19 15:37 Metoprolol Tartrate (Lopressor Inj/Pf 5 Mg/5 Ml Sdv) 5 mg IV Q6HP PRN PRN Reason: GIVE FOR HR > [115] Stop: 09/22/19 09:34 Last Admin: 08/24/19 05:33 Dose: 5 mg Documented by: Metoprolol Tartrate (Lopressor 50 Mg Tablet) 75 mg PO Q12 [facility] Stop: 09/23/19 09:59 Last Admin: 08/25/19 09:18 Dose: 75 mg Documented by: Ondansetron HCl (Zofran Odt 4 Mg Tablet) 4 mg PO Q6HP PRN PRN Reason: FOR NAUSEA/VOMITING Stop: 09/17/19 18:25 Oxycodone/Acetaminophen (Percocet 5-325 Mg Tablet) 1 tab PO Q6HP PRN PRN Reason: FOR PAIN SCALE 3-4 Stop: 08/25/19 18:25 Last Admin: 08/25/19 15:54 Dose: 1 tab Documented by: Prednisone (Deltasone 5 Mg Tablet) 2.5 mg PO QPM [facility] Stop: 09/18/19 17:59 Last Admin: 08/24/19 17:13 Dose: 2.5 mg Documented by: Pregabalin (Lyrica 100 Mg Capsule) 300 mg PO BID [facility] Stop: 09/18/19 09:59 Last Admin: 08/25/19 09:25 Dose: 300 mg Documented by: Spironolactone (Aldactone 25 Mg Tablet) 25 mg PO DAILY [facility] Stop: 09/20/19 09:59 Last Admin: 08/22/19 10:08 Dose: Not Given Documented by: Temazepam (Restoril 7.5 Mg Capsule) 7.5 mg PO HSP PRN PRN Reason: SLEEP OR INSOMNIA Stop: 08/25/19 18:25 Last Admin: 08/24/19 21:32 Dose: 7.5 mg Documented by: - Allergies Allergies/Adverse Reactions: FERNANDO Inhibitors Allergy (Verified 03/04/17 22:14) amoxicillin [From Augmentin] Allergy (Verified 03/04/17 22:14) amoxicillin trihydrate [From Augmentin] Allergy (Verified 12/26/16 18:49) Hives bumetanide [From Bumex] Allergy (Verified 03/04/17 22:14) clavulanic acid [From Augmentin] Allergy (Verified 03/04/17 22:14) Potassium Clavulanate * [From Augmentin] Allergy (Verified 12/26/16 18:49) Hives Hospital Course Hospital Course: HPI according to admitting provider: RADHA GALLO is a 64 year old female with history of COPD, A. fib, chronic diastolic heart failure, who presented to the emergency room with complaints of a fall. She denied feeling dizzy. She denied any chest pain. There is no loss of consciousness nausea vomiting. There is no headache. She said she has followed before although denies that it is frequent. She says she has some gait instability. She does have a history of chronic atrial fibrillation. In fact she said she had cardioversion attempted just about 5 days ago advised and but patient is currently back in atrial fibrillation. She is on Eliquis. She said her medication was just changed from Xarelto to Eliquis 5 days prior. She is unsure of the reason why. She says she is scheduled to go back and see the registered dental assistant rda for possible ablation. Hospital course Patient admitted on 08/18/2019 after being found to have fracture of her distal right femur. She was evaluated by orthopedics. Eliquis was held. She was taking for ORIF by the orthopedic surgeon Dr. Moy on 08/19/2019. Patient's hemoglobin on admission was noted to be over 13.9 but was subsequently 8.9 following the procedure. It was thought that patient's hemoglobin dropped was due to bleeding into her right thigh from the fracture and some amount of blood loss during the procedure. Patient was given transfusion 3 units of PRBC with improvement of her hemoglobin to 9.7 but later dropping back down to 8.5 at which it has remained stable. Last hemoglobin was 9.2 today. Patient has undergone physical therapy. Plan was to discharge patient to SNF for short-term rehabitation and outpatient follow-up with Dr. Addison Moy in 2 weeks.. However, patient has persisted in A. fib with rapid ventricular response. Patient was on Tikosyn 250 mg twice a day and Toprol-XL 200 mg daily at home. In the hospital multiple attempts to reduce her heart rate for the past several days have been unsuccessful including increasing Tikosyn to 500 mg twice daily, switching Toprol-XL to metoprolol tartrate 75 mg twice daily and several boluses of Lopressor IV. QTc has remained normal despite increase. Patient's heart rate has persisted between 115-130s at rest and often going as high as 140s to 150 up on ambulation. RVR was thought to have been propagated by blood loss anemia. Plan is to transfuse an additional unit of blood today. Patient has not been hypoxic. CTA of the chest was done today which revealed small sized PE in the right lower lobe. Of note patient has been off Eliquis for a few days and Eliquis has been restarted 2 days ago at a reduced dose of 2.5 mg twice daily. Given finding of PE, though quite small in size, Eliquis was increased today to 10 mg twice daily. Band Top Maker has evaluated patient and recommends transfer to [facility] for consideration of MARIO cardioversion and possible ablation at some point, given the patient is on high doses of antiarrhythmic and rate control medication. Physical Exam Vital Signs: Temp Pulse Resp BP Pulse Ox 98.5 F 122 H 17 99/65 L 99 08/25/19 10:53 08/25/19 14:00 08/25/19 10:53 08/25/19 10:53 08/25/19 10:53 Intake & Output 08/24/19 08/25/19 08/26/19 06:59 06:59 06:59 Intake Total 566 1826 586 Output Total 850 Balance -284 1826 586 Weight 79 kg 90.5 kg General appearance: PRESENT: no acute distress, cooperative, morbidly obese Neck exam: ABSENT: JVD Respiratory exam: PRESENT: clear to auscultation martin, symmetrical, unlabored. A BSENT: tachypnea, wheezes Cardiovascular exam: PRESENT: irregular rhythm, +S1, +S2, systolic murmur, tachycardia GI/Abdominal exam: PRESENT: soft. ABSENT: rebound, rigid, tenderness Extremities exam: PRESENT: other - Right lower extremity in cast Neurological exam: PRESENT: alert, awake, oriented to person, oriented to place, oriented to time, oriented to situation Results Laboratory Results: 08/25/19 06:11 08/25/19 06:11 08/25/19 08/25/19 06:11 06:11 WBC 8.5 RBC 3.12 L Hgb 9.2 L Hct 28.9 L MCV 93 MCH 29.5 MCHC 32.0 RDW 17.4 H Plt Count 279 Seg Neutrophils % 66.3 Sodium 137.7 Potassium 4.7 Chloride 107 Carbon Dioxide 28 Anion Gap 3 L BUN 14 Creatinine 0.49 L Est GFR ( Amer) > 60 Glucose 85 Calcium 8.6 Magnesium 2.2 08/19/19 08/20/19 08/20/19 16:45 00:49 07:15 Troponin I 0.047 0.039 0.040 NT-Pro-B Natriuret Pep 1390 H Impressions: Knee X-Ray 08/18/19 16:55 IMPRESSION: 1. Right knee arthroplasty with acute comminuted fracture of the distal femur extending through the femoral component of the arthroplasty. Moderate knee joint effusion. 2. There is moderate osteopenia. Chest X-Ray 08/19/19 00:00 IMPRESSION: Increasing small to moderate left pleural effusion with compressive atelectasis/ consolidation at the left lung base. Femur X-Ray 08/19/19 00:00 IMPRESSION: IMAGE(S) OBTAINED DURING PROCEDURE. Fluoroscopy 08/19/19 00:00 IMPRESSION: IMAGE(S) OBTAINED DURING PROCEDURE. Chest/Abdomen CTA 08/25/19 00:00 IMPRESSION: Positive study for small acute pulmonary embolus in the right lower lobe. Bibasilar atelectasis. Plan Time Spent: Greater than 30 Minutes
[2019-08-25] MEDS: PREDNISONE 5 MG TABLET PO SCH (17:57)
[2019-08-25] MEDS ORDERED: FUROSEMIDE 40 MG TABLET PO SCH (18:00)
[2019-08-25 20:20] VITALS: BP 113/64
[2019-08-25] MEDS ORDERED: APIXABAN 2.5 MG TABLET PO SCH (22:00)
== END 2019-08-25 20:30 | disposition short-term general hospital (02) | DRG 480 ==
LOC: ER 16:50 → EH 18:12 → 4S 20:07
PROVIDERS: ADMIT Internal Medicine; ATTEND Internal Medicine
PROC: 30233N1 Transfusion of Nonautologous Red Blood Cells into Peripheral Vein, Percutaneous Approach (ICD-10-PCS; 2019-08-19)
PROC: 30233N1 Transfusion of Nonautologous Red Blood Cells into Peripheral Vein, Percutaneous Approach (ICD-10-PCS; 2019-08-19)
PROC: 0QSB04Z Reposition Right Lower Femur with Internal Fixation Device, Open Approach (ICD-10-PCS; principal; 2019-08-19 10:30)
DX: S72.401A Unspecified fracture of lower end of right femur, initial encounter for closed fracture (principal); T81.19XA Other postprocedural shock, initial encounter; I26.99 Other pulmonary embolism without acute cor pulmonale; M97.11XA Periprosthetic fracture around internal prosthetic right knee joint, initial encounter; D62 Acute posthemorrhagic anemia; I48.19 Other persistent atrial fibrillation; I50.32 Chronic diastolic (congestive) heart failure; E87.6 Hypokalemia; I95.81 Postprocedural hypotension; E78.5 Hyperlipidemia, unspecified; I11.0 Hypertensive heart disease with heart failure; E03.9 Hypothyroidism, unspecified; J44.9 Chronic obstructive pulmonary disease, unspecified; M79.7 Fibromyalgia; G47.33 Obstructive sleep apnea (adult) (pediatric); W19.XXXA Unspecified fall, initial encounter; Y93.89 Activity, other specified; Y92.018 Other place in single-family (private) house as the place of occurrence of the external cause; Z99.81 Dependence on supplemental oxygen; Z79.01 Long term (current) use of anticoagulants; Z79.51 Long term (current) use of inhaled steroids; Z79.52 Long term (current) use of systemic steroids; Z79.899 Other long term (current) drug therapy; Z03.818 Encounter for observation for suspected exposure to other biological agents ruled out
CPT/HCPCS: 01360; 36415; 36430; 71045; 71275; 80048; 80053; 80202; 81001; 83735; 83880; 84484; 85025; 85027; 85610; 85730; 86850; 86900; 86901; 86920; 87635; 93005; 93010; 96374; 96375; 99285; C1713; J0696; J1170; J1885; J1940; J2250; J2270; J2370; J2405; J2704; J3010; J3370; J3490; J7030; J7060; J7512; P9016

== ENCOUNTER 2020-03-31 11:04 | Emergency (ER) | payer BC ==
[2020-03-31 11:10] VITALS: BP 153/75
[2020-03-31] MEDS ORDERED: IPRATROPIUM/ALBUTEROL 0.5-2.5 MG/3 ML AMPUL NEB ONE ×2 (12:37→17:00)
[2020-03-31] MEDS ORDERED: METHYLPREDNISOLONE INJ 125 MG/2 ML SDV IV ONE ×2 (12:38→17:00)
--- NOTE | 2020-03-31 12:42 | ER Document Report ---
ED Medical Screen (RME) - General Chief Complaint: Congestion Stated Complaint: CONGESTION Time Seen by Provider: 03/31/20 12:33 Primary Care Provider: BRIANNA TORRES MD [Primary Care Provider] - Follow up as needed Mode of Arrival: Wheelchair Information source: Patient, Relative Notes: Patient is a 64-year-old female sent in by her geometry professor complaining of congestion and hacking cough productive with some dark brownish phlegm. Patient states she started getting sick approximately 3 weeks ago primary care provider prescribed the Levaquin felt slightly better but not completely. Over the past couple days her pulse ox has been running about 89% she states has not really bad for her but she called the geometry professor and he sent her into the emergency room today for evaluation. Patient is on low-dose steroids on a daily basis they have doubled that from the normal dose but she did not get any better. She states is been running low-grade fevers. She is not been tested for coronavirus in the past few weeks last time was approximately a month ago. It was negative at that time. Patient denies any history of diabetes has a history of hypertension and congestive heart failure. Current vital signs show patient had a temp of 98.3 heart rate of 75 blood pressure 153/75 respiratory rate of 16 and she is satting on room air currently 97%. Physical examination: Patient is a well-nourished well-developed 64-year-old female no apparent distress but appears somewhat uncomfortable. Cardiac: Regular rate and rhythm on auscultation no murmurs were noted. Lungs: Bilateral breath sounds breath sounds are increased throughout patient has very coarse rhonchi scattered throughout all lung mcelroy with inspiratory expiratory wheeze noted bilaterally as well. HEENT: Examination patient's oropharynx does show some mild erythema there is no exudate noted. No deviation of the uvula and there is no encroachment upon it. Airway is currently patent. I have greeted and performed a rapid initial assessment of this patient. A comprehensive ED assessment and evaluation of the patient, analysis of test results and completion of the medical decision making process will be conducted by additional ED providers. Dictation of this chart was performed using voice recognition software; therefore, there may be some unintended grammatical errors. TRAVEL OUTSIDE OF THE [place] IN LAST 30 DAYS: No - Related Data Allergies/Adverse Reactions: FERNANDO Inhibitors Allergy (Verified 03/31/20 12:37) amoxicillin [From Augmentin] Allergy (Verified 03/31/20 12:37) amoxicillin trihydrate [From Augmentin] Allergy (Verified 03/31/20 12:37) Hives bumetanide [From Bumex] Allergy (Verified 03/31/20 12:37) clavulanic acid [From Augmentin] Allergy (Verified 03/31/20 12:37) Potassium Clavulanate * [From Augmentin] Allergy (Verified 03/31/20 12:37) Hives Past Medical History - Past Medical History Cardiac Medical History: Reports: Hx Atrial Fibrillation, Hx Congestive Heart Failure - Diastolic, Hx Hypercholesterolemia, Hx Hypertension Denies: Hx Heart Attack Pulmonary Medical History: Reports: Hx Asthma, Hx COPD - On chronic steroids, Hx Pneumonia, Hx Intubation, Hx Respiratory Failure - On home oxygen, Hx Sleep Apnea Neurological Medical History: Denies: Hx Cerebrovascular Accident, Hx Seizures Endocrine Medical History: Reports: Hx Hypothyroidism Renal/ Medical History: Denies: Hx Peritoneal Dialysis GI Medical History: Denies: Hx Hepatitis, Hx Hiatal Hernia, Hx Ulcer Musculoskeltal Medical History: Reports Hx Fibromyalgia Skin Medical History: Denies Hx Psoriasis Psychiatric Medical History: Reports: Hx Depression Traumatic Medical History: Denies: Hx Traumatic Brain Injury Infectious Medical History: Denies: Hx Hepatitis Past Surgical History: Reports: Hx Section - X4, Hx Orthopedic Surgery - right knee replacement, right toe, left shoulder, Hx Tonsillectomy. Denies: Hx Mastectomy, Hx Open Heart Surgery, Hx Pacemaker - Immunizations Hx Diphtheria, Pertussis, Tetanus Vaccination: Yes Physical Exam - Vital signs Vitals: Temp Pulse Resp BP Pulse Ox 98.3 F 75 16 153/75 H 97 03/31/20 11:07 03/31/20 11:07 03/31/20 11:07 03/31/20 11:07 03/31/20 11:07 Course - Vital Signs Vital signs: Temp Pulse Resp BP Pulse Ox 98.3 F 75 16 153/75 H 97 03/31/20 11:07 03/31/20 11:07 03/31/20 11:07 03/31/20 11:07 03/31/20 11:07 Doctor's Discharge - Discharge Referrals: BRIANNA TORRES MD [Primary Care Provider] - Follow up as needed
[2020-03-31 13:55] LABS: HEMOGLOBIN 13.9 g/dL (12.0-15.5); MEAN CORPUSCULAR HEMOGLOBIN 32.6 pg (27.0-33.4); MEAN CORPUSCULAR HGB CONC 33.8 g/dL (32.0-36.0); MEAN CORPUSCULAR VOLUME 96 fl (80-97); RED BLOOD COUNT 4.25 10^6/uL (3.72-5.28); RED CELL DISTRIBUTION WIDTH 15.3 % (11.5-14.0); WHITE BLOOD COUNT 9.2 10^3/uL (4.0-10.5)
[2020-03-31 14:05] LABS: ALBUMIN 3.9 g/dL (3.5-5.0); ALKALINE PHOSPHATASE 110 U/L (38-126); ANION GAP 7 (5-19); ASPARTATE AMINO TRANSFERASE 67 U/L (14-36); BILIRUBIN,DIRECT 0.2 mg/dL (0.0-0.4); BILIRUBIN,TOTAL 0.4 mg/dL (0.2-1.3); BLOOD UREA NITROGEN 22 mg/dL (7-20); CALCIUM 9.7 mg/dL (8.4-10.2); CARBON DIOXIDE 36 mmol/L (22-30); CHLORIDE 97 mmol/L (98-107); GLUCOSE 127 mg/dL (75-110); POTASSIUM 4.2 mmol/L (3.6-5.0); TOTAL PROTEIN 7.2 g/dL (6.3-8.2)
[2020-03-31 14:16] LABS: NT PRO BNP 569 pg/mL (<125)
[2020-03-31 14:18] LABS: TROPONIN I < 0.012 ng/mL
[2020-03-31 14:36] LABS: ABSOLUTE LYMPHOCYTES# (MANUAL) 1.4 10^3/uL (0.5-4.7); ABSOLUTE MONOCYTES # (MANUAL) 0.6 10^3/uL (0.1-1.4); BAND NEUTROPHILS % (MANUAL) 3 % (3-5); BASOPHILS % (MANUAL) 0 % (0-2); EOSINOPHILS % (MANUAL) 0 % (0-6); LYMPHOCYTES % (MANUAL) 15 % (13-45); METAMYELOCYTES % (MANUAL) 2 % (0-1); MONOCYTES % (MANUAL) 7 % (3-13); SEGMENTED NEUTROPHILS % (MAN) 73 % (42-78); TOTAL CELLS COUNTED 100
[2020-03-31 14:39] LABS: ANISOCYTOSIS SLIGHT; PLATELET CLUMPS PRESENT; PLATELET COMMENT ADEQUATE; POIKILOCYTOSIS SLIGHT
[2020-03-31 14:40] LABS: PLATELET COUNT 220 10^3/uL (150-450)
--- NOTE | 2020-03-31 15:24 | RADIOLOGY REPORT (SQ) ---
EXAM DESCRIPTION: CHEST SINGLE VIEW IMAGES COMPLETED DATE/TIME: 03/31/2020 3:14 pm REASON FOR STUDY: [facility] COMPARISON: 08/19/2019 EXAM PARAMETERS: NUMBER OF VIEWS: One view. TECHNIQUE: Single frontal radiographic view of the chest acquired. RADIATION DOSE: NA LIMITATIONS: None. FINDINGS: LUNGS AND PLEURA: Mild ill-defined left basilar opacities. Possible trace left effusion. No pneumothorax. MEDIASTINUM AND HILAR STRUCTURES: No masses. Contour normal. HEART AND VASCULAR STRUCTURES: Borderline enlarged. Mild central vascular prominence without overt e ashley. BONES: No acute findings. Degenerative changes at the shoulders. HARDWARE: Bone anchors overlie left humerus. OTHER: No other significant finding. IMPRESSION: Mild ill-defined left retrocardiac opacities, possibly atelectasis or infection. Possib le trace left effusion. TECHNICAL DOCUMENTATION: JOB ID: [id number] 2010 [email or web address]- All Rights Reserved Reading location - IP/workstation name: [email or web address]
--- NOTE | 2020-03-31 19:12 | RADIOLOGY REPORT (SQ) ---
EXAM DESCRIPTION: CTA CHEST IMAGES COMPLETED DATE/TIME: 03/31/2020 6:43 pm REASON FOR STUDY: SOB R/O PE COMPARISON: 08/25/2019 TECHNIQUE: CT scan of the chest performed using helical scanning technique with dynamic intravenous contrast injection. Images reviewed with lung, soft tissue and bone windows. Reconstructed coronal and sagittal MPR images reviewed. Additional 3 dimensional post-processing performed to develop Maximal Intensity Projection images (MD P). All images stored on PACS. All CT scanners at this facility use dose modulation, iterative reconstruction, and/or weight based d osing when appropriate to reduce radiation dose to as low as reasonably achievable (ALARA). [facility]: Dose Right [facility]: CareDose [facility]: Dose Right [facility]: Teradose 4D [facility]: OtherInbox CONTRAST TYPE AND DOSE: contrast/concentration: Isovue 350.00 mmol/ml; Total Contrast Delivered: 52. 2 ml; Total Saline Delivered: 40.0 ml Contrast bolus adequate for pulmonary arteries and aorta. RENAL FUNCTION: BUN 22 creatinine 0.59 RADIATION DOSE: CT Rad equipment meets quality standard of care and radiation dose reduction [facility] Clinic ues were employed. CTDIvol: 6.6 - 21.8 mGy. DLP: 675 mGy-cm. . LIMITATIONS: None. FINDINGS: LUNGS AND PLEURA: There is considerable patchy opacification in the left lower lobe and po steroinferior aspect of the left upper lobe. AORTA AND GREAT VESSELS: No aneurysm. No dissection. HEART: No pericardial effusion. No significant coronary artery calcifications. PULMONARY ARTERIES: No emboli visualized in the main pulmonary arteries or the segmental branches. HILAR AND MEDIASTINAL STRUCTURES: No identified masses or abnormal nodes. HARDWARE: None in the chest. UPPER ABDOMEN: No significant findings. Limited exam. THYROID AND OTHER SOFT TISSUES: No masses. No adenopathy. BONES: No acute or significant finding. 3D MIPS: Confirm above findings. OTHER: No other significant finding. IMPRESSION: 1. There is no pulmonary embolus. There is no aortic aneurysm or dissection. 2. There is patchy opacification in the left lung suggesting a multicentric, possibly atypical infec tious/inflammatory process. COMMENT: Quality ID # [id number]: Final reports with documentation of one or more dose reduction techniques (e.g., Automated exposure control, adjustment of the mA and/or kV according to patient size, use of iterative reconstruction technique) TECHNICAL DOCUMENTATION: JOB ID: [id number] 2010 [email or web address]- All Rights Reserved Reading location - IP/workstation name: [email or web address]
[2020-03-31 19:22] LABS: A TYPE INFLUENZA AG NEGATIVE (NEGATIVE); B INFLUENZA AG NEGATIVE (NEGATIVE)
--- NOTE | 2020-03-31 19:51 | ER Document Report ---
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 Patient states she started getting sick approximately 3 weeks ago primary care provider prescribed the Levaquin felt slightly better but not completely. Over the past couple days her pulse ox has been running about 89% she states has not really bad for her but she called the horticultural specialty grower field and he sent her into the emergency room today for evaluation. Patient is on low-dose steroids on a daily basis they have doubled that from the normal dose but she did not get any better. She states is been running low-grade fevers. She is not been tested for coronavirus in the past few weeks last time was approximately a month ago. It was negative at that time. Patient denies any history of diabetes has a history of hypertension and congestive heart failure. Current vital signs show patient had a temp of 98.3 heart rate of 75 blood pressure 153/75 respiratory rate of 16 and she is satting on room air currently 97%. I had originally seen patient in triage and started the work-up on her and picked her up after she came to the back. Patient actually looks better in the back than she did when she was triage. TRAVEL OUTSIDE OF THE [place] IN LAST 30 DAYS: No - HPI Patient complains to provider of: Asthma, CHF, Cough, Short of breath Duration: Continuous Initiating Event: URI Quality of pain: Achy Severity: Moderate Pain Level: 3 Context: Hx asthma, Hx CHF, Hx COPD Short of Breath: Moderate Chest pain/discomfort: Constant Cough: Productive Sputum amount: Small Sputum color: Brown, Creamy Sputum consistency: Thick At home treatment: Bronchodilators, Inhaled steroids, Oral steroids, Oxygen Associated symptoms: Congestion, Cough, Difficulty breathing, Fever Similar symptoms previously: Yes Recently seen / treated by doctor: Yes - Related Data Allergies/Adverse Reactions: FERNANDO Inhibitors Allergy (Verified 03/31/20 12:37) amoxicillin [From Augmentin] Allergy (Verified 03/31/20 12:37) amoxicillin trihydrate [From Augmentin] Allergy (Verified 03/31/20 12:37) Hives bumetanide [From Bumex] Allergy (Verified 03/31/20 12:37) clavulanic acid [From Augmentin] Allergy (Verified 03/31/20 12:37) Potassium Clavulanate * [From Augmentin] Allergy (Verified 03/31/20 12:37) Hives Home Medications: eliquis, allopurinol, prednisone, singulair, metoprolol, potassium, oxycodone, [place], digoxin, dodeilide, lyrica, requip, furosemide Past Medical History - General Information source: Patient, Relative - Social History Smoking Status: Never Smoker Frequency of alcohol use: None Drug Abuse: None Lives with: Family, Spouse/Significant other Family History: None, CAD, Hypertension, Other - Past Medical History Cardiac Medical History: Reports: Hx Atrial Fibrillation, Hx Congestive Heart Failure - Diastolic, Hx Hypercholesterolemia, Hx Hypertension Denies: Hx Heart Attack Pulmonary Medical History: Reports: Hx Asthma, Hx COPD - On chronic steroids, Hx Pneumonia, Hx Intubation, Hx Respiratory Failure - On home oxygen, Hx Sleep Apnea Neurological Medical History: Denies: Hx Cerebrovascular Accident, Hx Seizures Endocrine Medical History: Reports: Hx Hypothyroidism Renal/ Medical History: Denies: Hx Peritoneal Dialysis GI Medical History: Denies: Hx Hepatitis, Hx Hiatal Hernia, Hx Ulcer Musculoskeletal Medical History: Reports Hx Fibromyalgia Skin Medical History: Denies Hx Psoriasis Psychiatric Medical History: Reports: Hx Depression Traumatic Medical History: Denies: Hx Traumatic Brain Injury Infectious Medical History: Denies: Hx Hepatitis Past Surgical History: Reports: Hx Section - X4, Hx Orthopedic Surgery - right knee replacement, right toe, left shoulder, Hx Tonsillectomy. Denies: Hx Mastectomy, Hx Open Heart Surgery, Hx Pacemaker - Immunizations Hx Diphtheria, Pertussis, Tetanus Vaccination: Yes Hx Pneumococcal Vaccination: 02/02/19 Review of Systems - Review of Systems Constitutional: Fever EENT: See HPI, Nose discharge Cardiovascular: No symptoms reported Respiratory: See HPI, Cough, Short of breath, Sputum, Wheezing Gastrointestinal: No symptoms reported Genitourinary: No symptoms reported Female Genitourinary: No symptoms reported Musculoskeletal: No symptoms reported Skin: No symptoms reported Hematologic/Lymphatic: No symptoms reported Neurological/Psychological: No symptoms reported -: Yes All other systems reviewed and negative Physical Exam - Vital signs Vitals: Temp Pulse Resp BP Pulse Ox 98.3 F 75 16 153/75 H 97 03/31/20 11:07 03/31/20 11:07 03/31/20 11:07 03/31/20 11:07 03/31/20 11:07 Interpretation: Hypertensive - Notes Notes: PHYSICAL EXAMINATION: GENERAL: Patient is a well-nourished well-developed 64-year-old female no apparent distress on examination today. She does appear somewhat uncomfortable. HEAD: Atraumatic, normocephalic. EYES: Pupils equal round and reactive to light, extraocular movements intact, conjunctiva are normal. ENT: Examination head and upper airway show nasal mucosa be mildly erythematous and edematous with some rhinorrhea noted that yellowish in color. No frontal or maxillary sinus tenderness to palpation. Posterior pharynx shows some mild erythema with some drainage of yellowish-green color uvula is midline no erythema no exudate. Airways patent. NECK: Normal range of motion, supple without lymphadenopathy LUNGS: Auscultation patient's lungs show bilateral breath sounds with breath sounds decreased throughout faint rhonchi scattered greater on the left than the right clearing mostly on cough. No inspiratory expiratory wheeze noted. HEART: Regular rate and rhythm without murmurs ABDOMEN: Soft, nontender, nondistended abdomen. No guarding, no rebound. No masses appreciated. Female : deferred Musculoskeletal: Normal range of motion, no pitting or edema. No cyanosis. NEUROLOGICAL: Normal speech, normal gait. Normal sensory, motor exams PSYCH: Normal mood, normal affect. SKIN: Warm, Dry, normal turgor, no rashes or lesions noted. Cyanosis none no was not the Covid because it been going on for years Course - Re-evaluation Re-evalutation: 03/31/20 19:51 I discussed the case with Dr. Ricketts. I explained to him the patient has a horticultural specialty grower field and sent her here because she is not getting better. Her chest x- ray showed that there was a questionable area in the left lung but given that patient had a mild bandemia of 3 and her BNP was around 567 he wanted to do a CT of her chest just to make sure there was no PE. There was not but it did show that there was an infectious or inflammatory process in the left lung field. Patient is currently doubled up on her steroids at home I do not think it is necessary to go any higher at this point we will place her on some Zithromax for an atypical presentation of the consolidation. Patient will also start some D3, ranitidine someIvermectin 3 g daily for 7 days. And she will follow-up with her primary care provider. I also told her to increase her vitamin A. 03/31/20 19:54 Also to note patient was ambulated and did not drop her saturations below 94%. - Vital Signs Vital signs: Temp Pulse Resp BP Pulse Ox 98.3 F 75 16 153/75 H 97 03/31/20 11:07 03/31/20 11:07 03/31/20 11:07 03/31/20 11:07 03/31/20 11:07 - Laboratory Results Result Diagrams: 03/31/20 13:21 03/31/20 13:21 Laboratory Results Interpreted: 03/31/20 03/31/20 03/31/20 13:21 13:21 13:21 RDW 15.3 H Metamyelocytes % 2 H Chloride 97 L Carbon Dioxide 36 H BUN 22 H Glucose 127 H AST 67 H ALT 56 H NT-Pro-B Natriuret Pep 569 H Critical Laboratory Results Reviewed: Yes Attending or Supervising Physician who Reviewed Labs: ERICA RICKETTS JR - Bandemia - Radiology Results Critical Radiology Results Reviewed: Yes Attending or Supervising Physician who Reviewed Radiology: ERICA RICKETTS JR - Left lobe consolidation Discharge - Discharge Clinical Impression: Coronavirus infection, unspecified, Infiltrate of lower lobe of left lung present on imaging study, Viral URI Condition: Stable Disposition: HOME, SELF-CARE Instructions: COVID-19 Guidance for Persons Under Investigation, Upper Respiratory Illness ([facility]), Fever ([facility]), Viral Syndrome ([facility]), Pneumonia ([facility]), Viral Pneumonia ([facility]) Additional Instructions: NumberHome and rest. As we discussed he should get vitamin D3 around with 1000 international units a day but better 2 to 3000 international units a day. You can also get Pepcid/famotidine [id number] 20 mg twice a day these all help from the studies that have been shown to help stay off the coronavirus. Vitamin a is also another vitamin that is good for fighting this disease. You can continue with your steroids as you are doing now 15 mg a day until you talk to your horticultural specialty grower field. You can do your breathing treatments as scheduled. And as we discussed should you get even more short of breath or have any other concerns you can return to ER for reevaluation. Prescriptions: Ivermectin [Stromectol 3 mg Tablet] 3 mg PO DAILY #7 tablet Azithromycin [Zithromax 250 mg Tablet] 250 mg PO ASDIR PRN #6 tablet PRN Reason: Referrals: BRIANNA TORRES MD [Primary Care Provider] - Follow up as needed
--- NOTE | 2020-04-01 09:07 | EKG REPORT ---
SEVERITY:- ABNORMAL ECG - PACEMAKER SPIKES OR ARTIFACTS PROBABLE SINUS RHYTHM : Confirmed by: Kings Larsen MD 01-Apr-2020 09:06:24
== END 2020-03-31 20:24 | disposition home or self-care (01) ==
LOC: ER 11:04
DX: U07.1 COVID-19 (principal); J06.9 Acute upper respiratory infection, unspecified; R91.8 Other nonspecific abnormal finding of lung field; R05 Cough; R68.89 Other general symptoms and signs
CPT/HCPCS: 93005; 94640; 99285; 96374; 36415; 87040; 87070; 87880; 83605; 85025; 80053; 84484; 87804; 83880; 71045; 71275; 93010; U0003; J2930; C9803; 87635